=== PATIENT | female | born 1970 | race Caucasian/White ===

== ENCOUNTER 2019-07-28 06:59 | Inpatient (IN) | payer MEDICAID, OTHER ==
[~2019-07-28] VITALS: Ht 167.6 cm; Wt 50.3 kg
[~2019-07-28 06:59] MED LIST: DIPH50 PO; GABA-529 PO; HALO1 PO; PHENY100 PO; SERT50TA12 PO; TRAZ-257 PO
[2019-07-28 07:45] LABS: BASOPHILS % (AUTO) 0.4 % (0.0-2.0); EOSINOPHILS % (AUTO) 0 % (1.0-6.0); HEMATOCRIT 38.5 % (36-46); HEMOGLOBIN 13.2 g/dL (12.0-16.0); LYMPHOCYTES % (AUTO) 6.5 % (22.0-44.0); MEAN CORPUSCULAR HEMOGLOBIN 31.2 pg (26.0-34.0); MEAN CORPUSCULAR HGB CONC 34.2 G/dL (31.0-37.0); MEAN CORPUSCULAR VOLUME 91 fL (80-100); NEUTROPHILS # (AUTO) 12.5 K/uL (1.8-7.7); PLATELET COUNT (AUTO) 279 K/uL (150-450); RED BLOOD CELL COUNT(AUTO) 4.21 MIL/uL (4.00-5.20); RED CELL DISTRIBUTION WIDTH 13.7 % (11.5-14.5)
[2019-07-28 07:49] LABS: NEUTROPHILS % (AUTO) 86.1 % (40.0-70.0)
[2019-07-28 07:58] LABS: ANION GAP 13 mmol/L (8-16); CALCIUM, TOTAL 9.1 mg/dL (8.8-10.5); CARBON DIOXIDE 20 mmol/L (22-29); CHLORIDE 103 mmol/L (98-107); CREATININE 0.77 mg/dL (0.60-1.30); GLOMERULAR FILTR. RATE CALC > 60 mL/min (>60); GLUCOSE,RANDOM 117 mg/dL (70-110); POTASSIUM 3.8 mmol/L (3.5-5.1); SODIUM SERUM 136 mmol/L (136-145); UREA NITROGEN, BLOOD 8 mg/dL (7-18)
[2019-07-28 08:11] LABS: ALANINE AMINOTRANSFERASE 32 U/L (12-78); ALBUMIN 4.2 g/dL (3.4-5.0); ALKALINE PHOSPHATASE 196 U/L (46-116); ASPARTATE AMINOTRANSFERASE 25 U/L (15-37); BILIRUBIN,TOTAL 0.9 mg/dL (0.1-1.0); HCG,QUANTITATIVE 2 mIU/mL (0-6); TOTAL PROTEIN, SERUM 8.1 g/dL (6.4-8.2)
[2019-07-28 08:13] LABS: PHENYTOIN (DILANTIN) < 0.5 mcg/mL (10.0-20.0)
[2019-07-28 08:26] LABS: AMPHET/METH SCREEN,URINE POSITIVE (NEGATIVE); BARBITURATE SCREEN, URINE NEGATIVE (NEGATIVE); BENZODIAZEPINES SCREEN,URINE NEGATIVE (NEGATIVE); CANNABINOID SCREEN,URINE NEGATIVE (NEGATIVE); COCAINE SCREEN,URINE NEGATIVE (NEGATIVE); METHADONE SCREEN, URINE NEGATIVE (NEGATIVE); OPIATE SCREEN,URINE POSITIVE (NEGATIVE)
[2019-07-28 08:34] LABS: PHENCYCLIDINE SCREEN,URINE NEGATIVE (NEGATIVE)
[2019-07-28] MEDS: LORazepam 2 MG TABLET PO PRN (12:05)
[2019-07-28 16:13] VITALS: BP 105/60
[2019-07-28] MEDS ORDERED: NICOTINE 14 MG/24 HOUR PATCH TD PRN (17:00)
[2019-07-28] MEDS ORDERED: IBUPROFEN 400 MG TABLET PO PRN (17:00)
[2019-07-28] MEDS ORDERED: DOCUSATE SODIUM 100 MG CAPSULE PO PRN (17:00)
[2019-07-28] MEDS ORDERED: LOPERAMIDE HCL 2 MG CAPSULE PO PRN (17:00)
[2019-07-28] MEDS ORDERED: MAG HYDROX/AL HYDROX/SIMETH ES 30 ML SUSPENSION UDCUP PO PRN (17:00)
[2019-07-28] MEDS ORDERED: PETROLATUM,WHITE 28 GM JELLY TP PRN (17:00)
[2019-07-28] MEDS ORDERED: CloNIDine HCL 0.1 MG TABLET PO PRN (17:00)
[2019-07-28] MEDS ORDERED: MAGNESIUM HYDROXIDE SUSPENSION 30 ML UDCUP PO PRN (17:00)
[2019-07-28] MEDS ORDERED: ACETAMINOPHEN 325 MG TABLET PO PRN (17:00)
[2019-07-28] MEDS ORDERED: ALBUTEROL SULFATE HFA 90 MCG/PUFF 8 GM INHALER IH PRN (17:00)
[2019-07-28] MEDS ORDERED: ONDANSETRON HCL 4 MG TABLET PO PRN (17:00)
[2019-07-29 06:23] VITALS: BP 112/69
[2019-07-29] MEDS: LORazepam 2 MG TABLET PO PRN (07:09)
[2019-07-29 08:46] VITALS: BP 104/64
[2019-07-29] MEDS: PHENYTOIN SODIUM 100 MG ER CAPSULE PO SCH (08:50)
[2019-07-29] MEDS: NICOTINE 21 MG/24 HOUR PATCH TD SCH (08:51)
[2019-07-29] MEDS: HALOPERIDOL 5 MG TABLET PO PRN (13:08)
[2019-07-29 16:00] VITALS: BP 95/70
[2019-07-29] MEDS: NYSTATIN 500,000 UNITS/5 ML SUSPENSION UDCUP PO SCH (17:15)
[2019-07-29] MEDS: QUEtiapine FUMARATE 200 MG TABLET PO SCH (20:23)
[2019-07-30] MEDS: PHENYTOIN SODIUM 100 MG ER CAPSULE PO SCH (08:45)
[2019-07-30] MEDS: NYSTATIN 500,000 UNITS/5 ML SUSPENSION UDCUP PO SCH ×3 (08:46→17:24)
[2019-07-30] MEDS: QUEtiapine FUMARATE 200 MG TABLET PO SCH ×2 (08:46→20:56)
[2019-07-30] MEDS: NICOTINE 21 MG/24 HOUR PATCH TD SCH (08:51)
[2019-07-30] MEDS: LORazepam 2 MG TABLET PO PRN ×2 (12:39→17:51)
[2019-07-30 16:00] VITALS: BP 85/62
[2019-07-30 20:07] VITALS: BP 94/62
[2019-07-31] MEDS: PHENYTOIN SODIUM 100 MG ER CAPSULE PO SCH (08:22)
[2019-07-31] MEDS: QUEtiapine FUMARATE 200 MG TABLET PO SCH ×2 (08:22→20:12)
[2019-07-31] MEDS: NYSTATIN 500,000 UNITS/5 ML SUSPENSION UDCUP PO SCH ×3 (08:27→17:00)
[2019-07-31] MEDS: NICOTINE 21 MG/24 HOUR PATCH TD SCH (08:28)
[2019-07-31 08:31] VITALS: BP 94/55
[2019-07-31] MEDS: VENLAFAXINE HCL 150 MG ER CAPSULE PO SCH (10:23)
[2019-07-31] MEDS: HALOPERIDOL 5 MG TABLET PO PRN (12:49)
[2019-07-31] MEDS: GuaiFENesin/D-METHORPHAN [SUGAR-FREE] 200-20MG/10 ML SYRUP UDCUP PO PRN (18:17)
[2019-07-31] MEDS: LITHIUM CARBONATE 300 MG CAPSULE PO SCH (20:12)
[2019-07-31 20:31] VITALS: BP 95/65
[2019-08-01] MEDS: ZOLPIDEM TARTRATE 10 MG TABLET PO PRN (03:33)
[2019-08-01 06:26] VITALS: BP 100/64
[2019-08-01] MEDS: VENLAFAXINE HCL 150 MG ER CAPSULE PO SCH (08:42)
[2019-08-01] MEDS: NICOTINE 21 MG/24 HOUR PATCH TD SCH (08:42)
[2019-08-01] MEDS: QUEtiapine FUMARATE 200 MG TABLET PO SCH ×2 (08:42→20:28)
[2019-08-01] MEDS: NYSTATIN 500,000 UNITS/5 ML SUSPENSION UDCUP PO SCH ×3 (08:48→16:59)
[2019-08-01] MEDS: PHENYTOIN SODIUM 100 MG ER CAPSULE PO SCH (08:48)
[2019-08-01 09:51] LABS: CHOL/HDL RATIO 4.3 (3.9-5.7)
[2019-08-01] MEDS: HALOPERIDOL 5 MG TABLET PO PRN (13:59)
[2019-08-01 16:32] VITALS: BP 90/67
[2019-08-01] MEDS: LITHIUM CARBONATE 300 MG CAPSULE PO SCH (20:29)
[2019-08-02 02:51] VITALS: BP 109/65
[2019-08-02] MEDS: LORazepam 2 MG TABLET PO PRN (02:57)
[2019-08-02] MEDS: NICOTINE 21 MG/24 HOUR PATCH TD SCH (09:11)
[2019-08-02] MEDS: PHENYTOIN SODIUM 100 MG ER CAPSULE PO SCH (09:11)
[2019-08-02] MEDS: VENLAFAXINE HCL 150 MG ER CAPSULE PO SCH (09:11)
[2019-08-02] MEDS: QUEtiapine FUMARATE 200 MG TABLET PO SCH ×2 (09:11→20:30)
[2019-08-02] MEDS: NYSTATIN 500,000 UNITS/5 ML SUSPENSION UDCUP PO SCH ×3 (09:14→17:15)
[2019-08-02 10:45] VITALS: BP 89/69
[2019-08-02] MEDS: HALOPERIDOL 5 MG TABLET PO PRN (13:45)
[2019-08-02 16:16] VITALS: BP 100/63
[2019-08-02] MEDS: LITHIUM CARBONATE 300 MG CAPSULE PO SCH (20:30)
[2019-08-03] MEDS: ZOLPIDEM TARTRATE 10 MG TABLET PO PRN (01:13)
[2019-08-03] MEDS: LORazepam 2 MG TABLET PO PRN ×3 (06:06→18:05)
[2019-08-03 07:11] VITALS: BP 95/58
[2019-08-03 07:27] LABS: BASOPHILS % (AUTO) 1.3 % (0.0-2.0); EOSINOPHILS % (AUTO) 4.1 % (1.0-6.0); HEMATOCRIT 42.3 % (36-46); HEMOGLOBIN 14.2 g/dL (12.0-16.0); LYMPHOCYTES # (AUTO) 1.4 K/uL (1.0-4.8); LYMPHOCYTES % (AUTO) 25.3 % (22.0-44.0); MEAN CORPUSCULAR HEMOGLOBIN 31.2 pg (26.0-34.0); MEAN CORPUSCULAR HGB CONC 33.5 G/dL (31.0-37.0); MEAN CORPUSCULAR VOLUME 93 fL (80-100); MONOCYTES # (AUTO) 0.5 K/uL (0.1-1.0); NEUTROPHILS # (AUTO) 3.2 K/uL (1.8-7.7); NEUTROPHILS % (AUTO) 59.3 % (40.0-70.0); PLATELET COUNT (AUTO) 179 K/uL (150-450); RED BLOOD CELL COUNT(AUTO) 4.54 MIL/uL (4.00-5.20); RED CELL DISTRIBUTION WIDTH 12.9 % (11.5-14.5)
[2019-08-03] MEDS: VENLAFAXINE HCL 150 MG ER CAPSULE PO SCH (08:41)
[2019-08-03] MEDS: NICOTINE 21 MG/24 HOUR PATCH TD SCH (08:41)
[2019-08-03] MEDS: QUEtiapine FUMARATE 200 MG TABLET PO SCH ×2 (08:41→20:39)
[2019-08-03] MEDS: NYSTATIN 500,000 UNITS/5 ML SUSPENSION UDCUP PO SCH ×3 (08:42→16:26)
[2019-08-03] MEDS: PHENYTOIN SODIUM 100 MG ER CAPSULE PO SCH (08:42)
[2019-08-03 16:10] VITALS: BP 106/76
[2019-08-03] MEDS: LITHIUM CARBONATE 300 MG CAPSULE PO SCH (20:39)
[2019-08-04 00:45] VITALS: BP 105/72
[2019-08-04] MEDS: LORazepam 2 MG TABLET PO PRN ×2 (03:07→16:44)
[2019-08-04 08:26] VITALS: BP 97/69
[2019-08-04] MEDS: FOLIC ACID 1 MG TABLET PO SCH (08:39)
[2019-08-04] MEDS: MULTIVITAMINS WITH MINERALS, THERAPEUTIC TABLET PO SCH (08:39)
[2019-08-04] MEDS: THIAMINE HCL 100 MG TABLET PO SCH (08:39)
[2019-08-04] MEDS: QUEtiapine FUMARATE 200 MG TABLET PO SCH ×2 (08:39→20:53)
[2019-08-04] MEDS: VENLAFAXINE HCL 150 MG ER CAPSULE PO SCH (08:39)
[2019-08-04] MEDS: PHENYTOIN SODIUM 100 MG ER CAPSULE PO SCH (08:39)
[2019-08-04] MEDS: HALOPERIDOL 5 MG TABLET PO PRN (08:40)
[2019-08-04] MEDS: NICOTINE 21 MG/24 HOUR PATCH TD SCH (08:44)
[2019-08-04] MEDS: NYSTATIN 500,000 UNITS/5 ML SUSPENSION UDCUP PO SCH ×3 (09:00→17:22)
[2019-08-04 16:47] VITALS: BP 104/65
[2019-08-04] MEDS: GuaiFENesin/D-METHORPHAN [SUGAR-FREE] 200-20MG/10 ML SYRUP UDCUP PO PRN (18:15)
[2019-08-04] MEDS: LITHIUM CARBONATE 300 MG CAPSULE PO SCH (20:53)
[2019-08-05 00:35] VITALS: BP 107/62
[2019-08-05] MEDS: ZOLPIDEM TARTRATE 10 MG TABLET PO PRN (03:06)
[2019-08-05] MEDS: FOLIC ACID 1 MG TABLET PO SCH (08:39)
[2019-08-05] MEDS: MULTIVITAMINS WITH MINERALS, THERAPEUTIC TABLET PO SCH (08:39)
[2019-08-05] MEDS: THIAMINE HCL 100 MG TABLET PO SCH (08:39)
[2019-08-05] MEDS: NYSTATIN 500,000 UNITS/5 ML SUSPENSION UDCUP PO SCH ×3 (08:39→17:00)
[2019-08-05] MEDS: PHENYTOIN SODIUM 100 MG ER CAPSULE PO SCH (08:39)
[2019-08-05] MEDS: VENLAFAXINE HCL 150 MG ER CAPSULE PO SCH (08:39)
[2019-08-05] MEDS: QUEtiapine FUMARATE 200 MG TABLET PO SCH ×2 (08:39→20:48)
[2019-08-05] MEDS: NICOTINE 21 MG/24 HOUR PATCH TD SCH (08:40)
[2019-08-05 09:14] VITALS: BP 97/68
[2019-08-05 16:23] VITALS: BP 100/70
[2019-08-05] MEDS: LORazepam 2 MG TABLET PO PRN (17:00)
[2019-08-05] MEDS: LITHIUM CARBONATE 300 MG CAPSULE PO SCH (20:48)
[2019-08-05] MEDS: ValACYclovir HCL 500 MG TABLET PO SCH (23:29)
[2019-08-06 00:36] VITALS: BP 127/89
[2019-08-06] MEDS: LORazepam 2 MG TABLET PO PRN (05:06)
[2019-08-06 08:34] VITALS: BP 93/60
[2019-08-06] MEDS: NYSTATIN 500,000 UNITS/5 ML SUSPENSION UDCUP PO SCH ×2 (08:53→12:25)
[2019-08-06] MEDS: VENLAFAXINE HCL 150 MG ER CAPSULE PO SCH (08:54)
[2019-08-06] MEDS: QUEtiapine FUMARATE 200 MG TABLET PO SCH (08:54)
[2019-08-06] MEDS: THIAMINE HCL 100 MG TABLET PO SCH (08:54)
[2019-08-06] MEDS: FOLIC ACID 1 MG TABLET PO SCH (08:54)
[2019-08-06] MEDS: PHENYTOIN SODIUM 100 MG ER CAPSULE PO SCH (08:54)
[2019-08-06] MEDS: ValACYclovir HCL 500 MG TABLET PO SCH (08:54)
[2019-08-06] MEDS: NICOTINE 21 MG/24 HOUR PATCH TD SCH (08:54)
[2019-08-06] MEDS: MULTIVITAMINS WITH MINERALS, THERAPEUTIC TABLET PO SCH (08:54)
[2019-08-06] MEDS ORDERED: QUET200T PO (09:46)
[2019-08-06] MEDS ORDERED: VALA500T42 PO (09:46)
[2019-08-06] MEDS ORDERED: NYST100026 PO (09:46)
[2019-08-06] MEDS ORDERED: LITH300C3 PO ×2 (09:46→10:47)
[2019-08-06] MEDS ORDERED: VENL-68 PO (09:46)
[2019-08-06] MEDS ORDERED: QUET200T29 PO (10:47)
[2019-08-06] MEDS ORDERED: VENL150C2 PO (10:47)
== END 2019-08-06 12:50 | disposition home or self-care (01) | DRG 750 ==
LOC: EMS 07:00 → B2S 13:58
DX: F25.1 Schizoaffective disorder, depressive type (principal); G40.909 Epilepsy, unspecified, not intractable, without status epilepticus; R45.851 Suicidal ideations; F15.10 Other stimulant abuse, uncomplicated; J44.9 Chronic obstructive pulmonary disease, unspecified; D72.829 Elevated white blood cell count, unspecified; F10.10 Alcohol abuse, uncomplicated; F11.10 Opioid abuse, uncomplicated; F17.210 Nicotine dependence, cigarettes, uncomplicated; F41.9 Anxiety disorder, unspecified; G44.209 Tension-type headache, unspecified, not intractable; Z59.0 Homelessness; Z79.899 Other long term (current) drug therapy; Z81.8 Family history of other mental and behavioral disorders
CPT/HCPCS: 83036; 87081; J3535

== ENCOUNTER 2021-07-04 02:44 | Emergency (ER) | payer MEDICAID, OTHER ==
[~2021-07-04] VITALS: Ht 167.6 cm; Wt 68.2 kg
[~2021-07-04 02:44] MED LIST changes: -DIPH50 PO; -GABA-529 PO; -HALO1 PO; +LITH300C3 PO; +NYST100033 PO; +QUET200T PO; +QUET200T30 PO; -SERT50TA12 PO; -TRAZ-257 PO; +VALA500T42 PO; +VENL-68 PO; +VENL150C2 PO
[2021-07-04 04:34] LABS: COVID AG,FIA SOURCE NASOPHARYNGEAL
[2021-07-04 04:45] LABS: BASOPHILS % (AUTO) 0.2 % (0.0-2.0); EOSINOPHILS % (AUTO) 0.2 % (1.0-6.0); HEMATOCRIT 43.6 % (36-46); LYMPHOCYTES # (AUTO) 1.1 K/uL (1.0-4.8); LYMPHOCYTES % (AUTO) 12.2 % (22.0-44.0); MEAN CORPUSCULAR HEMOGLOBIN 31.9 pg (26.0-34.0); MEAN CORPUSCULAR HGB CONC 34.4 G/dL (31.0-37.0); MEAN CORPUSCULAR VOLUME 93 fL (80-100); MONOCYTES # (AUTO) 0.7 K/uL (0.1-1.0); MONOCYTES % (AUTO) 7.3 % (2.0-9.0); NEUTROPHILS # (AUTO) 7.3 K/uL (1.8-7.7); NEUTROPHILS % (AUTO) 80.1 % (40.0-70.0); PLATELET COUNT (AUTO) 155 K/uL (150-450); RED CELL DISTRIBUTION WIDTH 14.6 % (11.5-14.5)
[2021-07-04 04:50] LABS: ANION GAP 14 mmol/L (8-16); CARBON DIOXIDE 23 mmol/L (22-29); CHLORIDE 100 mmol/L (98-107); CREATININE 0.75 mg/dL (0.60-1.30); GLOMERULAR FILTR. RATE CALC > 60 mL/min (>60); GLUCOSE,RANDOM 97 mg/dL (70-110); POTASSIUM 3.5 mmol/L (3.5-5.1); SODIUM SERUM 137 mmol/L (136-145); UREA NITROGEN, BLOOD 7 mg/dL (7-18)
[2021-07-04 05:04] LABS: ALANINE AMINOTRANSFERASE 40 U/L (12-78); ALBUMIN 4.5 g/dL (3.4-5.0); ALKALINE PHOSPHATASE 113 U/L (46-116); ASPARTATE AMINOTRANSFERASE 38 U/L (15-37); BILIRUBIN,TOTAL 0.7 mg/dL (0.1-1.0); HCG,QUANTITATIVE 4 mIU/mL (0-6); PHENYTOIN (DILANTIN) 0.6 mcg/mL (10.0-20.0); TOTAL PROTEIN, SERUM 8.6 g/dL (6.4-8.2)
[2021-07-04 05:06] LABS: LITHIUM < 0.20 mmol/L (0.60-1.20)
[2021-07-04] MEDS ORDERED: LORazepam 1 MG TABLET PO ONE (05:30)
[2021-07-04 06:07] VITALS: BP 119/78
== END 2021-07-04 06:30 | disposition home or self-care (01) ==
LOC: EMS 02:44
DX: F41.9 Anxiety disorder, unspecified (principal); F31.9 Bipolar disorder, unspecified; F17.210 Nicotine dependence, cigarettes, uncomplicated; Z88.2 Allergy status to sulfonamides; Z79.899 Other long term (current) drug therapy; Z20.822 Contact with and (suspected) exposure to COVID-19
CPT/HCPCS: 36415; 80053; 80178; 80185; 84702; 85025; 87426; 99283; G0480

== ENCOUNTER 2021-07-04 08:12 | Inpatient (IN) | payer MEDICAID, OTHER ==
[~2021-07-04] VITALS: Ht 167.6 cm; Wt 56.9 kg
[2021-07-04] MEDS ORDERED: HALOPERIDOL 5 MG TABLET PO PRN (13:45)
[2021-07-04] MEDS ORDERED: PROMETHAZINE HCL 25 MG TABLET PO PRN (13:45)
[2021-07-04 13:49] LABS: COVID AG,FIA SOURCE NASOPHARYNGEAL
[2021-07-04 18:56] LABS: BASOPHILS % (AUTO) 0.6 % (0.0-2.0); EOSINOPHILS % (AUTO) 1.2 % (1.0-6.0); HEMOGLOBIN 14.3 g/dL (12.0-16.0); LYMPHOCYTES # (AUTO) 1.8 K/uL (1.0-4.8); LYMPHOCYTES % (AUTO) 19.8 % (22.0-44.0); MEAN CORPUSCULAR HEMOGLOBIN 31.8 pg (26.0-34.0); MEAN CORPUSCULAR HGB CONC 34.8 G/dL (31.0-37.0); MEAN CORPUSCULAR VOLUME 91 fL (80-100); MONOCYTES # (AUTO) 0.8 K/uL (0.1-1.0); MONOCYTES % (AUTO) 8.5 % (2.0-9.0); NEUTROPHILS # (AUTO) 6.5 K/uL (1.8-7.7); NEUTROPHILS % (AUTO) 69.9 % (40.0-70.0); PLATELET COUNT (AUTO) 154 K/uL (150-450); RED BLOOD CELL COUNT(AUTO) 4.48 MIL/uL (4.00-5.20); RED CELL DISTRIBUTION WIDTH 14.3 % (11.5-14.5)
[2021-07-04 19:00] VITALS: BP 116/77
[2021-07-04 19:15] LABS: ANION GAP 13 mmol/L (8-16); CALCIUM, TOTAL 9.5 mg/dL (8.8-10.5); CARBON DIOXIDE 24 mmol/L (22-29); CHLORIDE 102 mmol/L (98-107); CREATININE 0.72 mg/dL (0.60-1.30); GLOMERULAR FILTR. RATE CALC > 60 mL/min (>60); GLUCOSE,RANDOM 87 mg/dL (70-110); POTASSIUM 3.4 mmol/L (3.5-5.1); SODIUM SERUM 139 mmol/L (136-145); UREA NITROGEN, BLOOD 9 mg/dL (7-18)
[2021-07-04] MEDS ORDERED: POTASSIUM CHLORIDE 20 MEQ ER TABLET PO ONE (20:15)
[2021-07-05 08:01] LABS: CHOL/HDL RATIO 2.3 (3.9-5.7); FREE T4 (FREE THYROXINE) 1.28 ng/dL (0.76-1.46); THYROID STIMULATING HORMONE 0.54 uIU/mL (0.36-3.74)
[2021-07-05] MEDS: LORazepam 2 MG TABLET PO PRN (08:45)
[2021-07-05] MEDS: NICOTINE 21 MG/24 HOUR PATCH TD SCH (08:50)
[2021-07-05 13:09] VITALS: BP 95/56
[2021-07-05] MEDS: VENLAFAXINE HCL 150 MG ER CAPSULE PO SCH (17:08)
[2021-07-05] MEDS: NYSTATIN 500,000 UNITS/5 ML SUSPENSION UDCUP PO SCH (17:08)
[2021-07-05 17:11] VITALS: BP 99/61
[2021-07-05] MEDS: LITHIUM CARBONATE 300 MG CAPSULE PO SCH (20:51)
[2021-07-05] MEDS: QUEtiapine FUMARATE 200 MG TABLET PO SCH (20:51)
[2021-07-06 08:30] VITALS: BP 97/61
[2021-07-06] MEDS: NYSTATIN 500,000 UNITS/5 ML SUSPENSION UDCUP PO SCH (09:31)
[2021-07-06] MEDS: PHENYTOIN SODIUM 100 MG ER CAPSULE PO SCH (09:31)
[2021-07-06] MEDS: QUEtiapine FUMARATE 200 MG TABLET PO SCH ×2 (09:31→21:07)
[2021-07-06] MEDS: NICOTINE 21 MG/24 HOUR PATCH TD SCH (09:32)
[2021-07-06] MEDS: VENLAFAXINE HCL 150 MG ER CAPSULE PO SCH (09:32)
[2021-07-06] MEDS: ValACYclovir HCL 500 MG TABLET PO SCH (09:32)
[2021-07-06 16:45] VITALS: BP 99/89
[2021-07-06] MEDS: LITHIUM CARBONATE 300 MG CAPSULE PO SCH (21:07)
[2021-07-07 08:00] VITALS: BP 103/70
[2021-07-07] MEDS: PHENYTOIN SODIUM 100 MG ER CAPSULE PO SCH (08:56)
[2021-07-07] MEDS: VENLAFAXINE HCL 150 MG ER CAPSULE PO SCH (08:57)
[2021-07-07] MEDS: ValACYclovir HCL 500 MG TABLET PO SCH (08:57)
[2021-07-07] MEDS: QUEtiapine FUMARATE 200 MG TABLET PO SCH ×2 (08:57→20:38)
[2021-07-07] MEDS: NICOTINE 21 MG/24 HOUR PATCH TD SCH (09:06)
[2021-07-07] MEDS: NYSTATIN 500,000 UNITS/5 ML SUSPENSION UDCUP PO SCH (09:08)
[2021-07-07 16:19] VITALS: BP 109/69
[2021-07-07] MEDS: LITHIUM CARBONATE 300 MG CAPSULE PO SCH (20:37)
[2021-07-08] MEDS: VENLAFAXINE HCL 150 MG ER CAPSULE PO SCH (09:00)
[2021-07-08] MEDS: ValACYclovir HCL 500 MG TABLET PO SCH (09:00)
[2021-07-08] MEDS: NYSTATIN 500,000 UNITS/5 ML SUSPENSION UDCUP PO SCH (09:00)
[2021-07-08] MEDS: PHENYTOIN SODIUM 100 MG ER CAPSULE PO SCH (09:01)
[2021-07-08] MEDS: NICOTINE 21 MG/24 HOUR PATCH TD SCH (09:01)
[2021-07-08] MEDS: QUEtiapine FUMARATE 200 MG TABLET PO SCH ×2 (09:01→20:22)
[2021-07-08 10:17] VITALS: BP 114/73
[2021-07-08 16:00] VITALS: BP 108/68
[2021-07-08] MEDS: LITHIUM CARBONATE 300 MG CAPSULE PO SCH (20:22)
[2021-07-09] MEDS: NICOTINE 21 MG/24 HOUR PATCH TD SCH (09:00)
[2021-07-09] MEDS: NYSTATIN 500,000 UNITS/5 ML SUSPENSION UDCUP PO SCH (09:00)
[2021-07-09] MEDS: QUEtiapine FUMARATE 200 MG TABLET PO SCH ×2 (09:01→20:18)
[2021-07-09] MEDS: PHENYTOIN SODIUM 100 MG ER CAPSULE PO SCH (09:01)
[2021-07-09] MEDS: VENLAFAXINE HCL 150 MG ER CAPSULE PO SCH (09:01)
[2021-07-09] MEDS: ValACYclovir HCL 500 MG TABLET PO SCH (09:01)
[2021-07-09 09:43] VITALS: BP 96/68
[2021-07-09 16:00] VITALS: BP 110/57
[2021-07-09] MEDS: LORazepam 2 MG TABLET PO PRN (16:45)
[2021-07-09] MEDS: LITHIUM CARBONATE 300 MG CAPSULE PO SCH (20:18)
[2021-07-10 09:30] VITALS: BP 103/68
[2021-07-10] MEDS: NYSTATIN 500,000 UNITS/5 ML SUSPENSION UDCUP PO SCH (09:33)
[2021-07-10] MEDS: ValACYclovir HCL 500 MG TABLET PO SCH (09:33)
[2021-07-10] MEDS: QUEtiapine FUMARATE 200 MG TABLET PO SCH ×2 (09:34→20:21)
[2021-07-10] MEDS: PHENYTOIN SODIUM 100 MG ER CAPSULE PO SCH (09:34)
[2021-07-10] MEDS: VENLAFAXINE HCL 150 MG ER CAPSULE PO SCH (09:34)
[2021-07-10] MEDS: NICOTINE 21 MG/24 HOUR PATCH TD SCH (09:40)
[2021-07-10] MEDS: OLANZapine 10 MG TABLET PO SCH (12:12)
[2021-07-10 16:00] VITALS: BP 100/66
[2021-07-10] MEDS: LITHIUM CARBONATE 300 MG CAPSULE PO SCH (20:21)
[2021-07-10 21:03] LABS: COVID AG,FIA SOURCE NASAL SWAB
[2021-07-11 08:53] VITALS: BP 102/64
[2021-07-11] MEDS: ValACYclovir HCL 500 MG TABLET PO SCH (09:26)
[2021-07-11] MEDS: PHENYTOIN SODIUM 100 MG ER CAPSULE PO SCH (09:27)
[2021-07-11] MEDS: OLANZapine 10 MG TABLET PO SCH (09:27)
[2021-07-11] MEDS: NYSTATIN 500,000 UNITS/5 ML SUSPENSION UDCUP PO SCH (09:27)
[2021-07-11] MEDS: VENLAFAXINE HCL 150 MG ER CAPSULE PO SCH (09:27)
[2021-07-11] MEDS: NICOTINE 21 MG/24 HOUR PATCH TD SCH (09:28)
[2021-07-11 16:11] VITALS: BP 106/66
[2021-07-11] MEDS: QUEtiapine FUMARATE 200 MG TABLET PO SCH (21:08)
[2021-07-11] MEDS: LITHIUM CARBONATE 300 MG CAPSULE PO SCH (21:08)
[2021-07-12] MEDS: VENLAFAXINE HCL 150 MG ER CAPSULE PO SCH (08:59)
[2021-07-12] MEDS: ValACYclovir HCL 500 MG TABLET PO SCH (08:59)
[2021-07-12] MEDS: NYSTATIN 500,000 UNITS/5 ML SUSPENSION UDCUP PO SCH (08:59)
[2021-07-12] MEDS: PHENYTOIN SODIUM 100 MG ER CAPSULE PO SCH (08:59)
[2021-07-12] MEDS: OLANZapine 10 MG TABLET PO SCH (08:59)
[2021-07-12 09:00] VITALS: BP 102/68
[2021-07-12] MEDS: NICOTINE 21 MG/24 HOUR PATCH TD SCH (09:00)
[2021-07-12 16:00] VITALS: BP 101/64
[2021-07-12] MEDS: LORazepam 2 MG TABLET PO PRN (16:13)
[2021-07-12] MEDS: QUEtiapine FUMARATE 200 MG TABLET PO SCH (21:20)
[2021-07-12] MEDS: LITHIUM CARBONATE 300 MG CAPSULE PO SCH (21:20)
[2021-07-12 23:47] LABS: COVID AG,FIA SOURCE NASAL SWAB
[2021-07-13 08:00] VITALS: BP 100/61
[2021-07-13] MEDS: VENLAFAXINE HCL 150 MG ER CAPSULE PO SCH (08:37)
[2021-07-13] MEDS: NICOTINE 21 MG/24 HOUR PATCH TD SCH (08:37)
[2021-07-13] MEDS: PHENYTOIN SODIUM 100 MG ER CAPSULE PO SCH (08:37)
[2021-07-13] MEDS: OLANZapine 10 MG TABLET PO SCH (08:37)
[2021-07-13] MEDS: ValACYclovir HCL 500 MG TABLET PO SCH (08:38)
[2021-07-13] MEDS ORDERED: GuaiFENesin/D-METHORPHAN [SUGAR-FREE] 200-20MG/10 ML SYRUP UDCUP PO PRN (11:15)
[2021-07-13] MEDS ORDERED: MAG HYDROX/AL HYDROX/SIMETH ES 30 ML SUSPENSION UDCUP PO PRN (11:15)
[2021-07-13] MEDS ORDERED: ONDANSETRON HCL 4 MG TABLET PO PRN (11:15)
[2021-07-13] MEDS ORDERED: LOPERAMIDE HCL 2 MG CAPSULE PO PRN (11:15)
[2021-07-13] MEDS ORDERED: MAGNESIUM HYDROXIDE SUSPENSION 30 ML UDCUP PO PRN (11:15)
[2021-07-13] MEDS ORDERED: CloNIDine HCL 0.1 MG TABLET PO PRN (11:15)
[2021-07-13] MEDS ORDERED: ALBUTEROL SULFATE HFA 90 MCG/PUFF 8 GM INHALER IH PRN (11:15)
[2021-07-13] MEDS ORDERED: NICOTINE 14 MG/24 HOUR PATCH TD PRN (11:15)
[2021-07-13] MEDS ORDERED: DOCUSATE SODIUM 100 MG CAPSULE PO PRN (11:15)
[2021-07-13] MEDS ORDERED: ACETAMINOPHEN 325 MG TABLET PO PRN (11:15)
[2021-07-13] MEDS ORDERED: PETROLATUM,WHITE 28 GM JELLY TP PRN (11:15)
[2021-07-13] MEDS ORDERED: IBUPROFEN 400 MG TABLET PO PRN (11:15)
[2021-07-13] MEDS: LORazepam 2 MG TABLET PO PRN (15:11)
[2021-07-13] MEDS: QUEtiapine FUMARATE 200 MG TABLET PO SCH (20:39)
[2021-07-13] MEDS: LITHIUM CARBONATE 300 MG CAPSULE PO SCH (20:39)
[2021-07-14 08:00] VITALS: BP 101/61
[2021-07-14] MEDS: PHENYTOIN SODIUM 100 MG ER CAPSULE PO SCH (08:08)
[2021-07-14] MEDS: OLANZapine 10 MG TABLET PO SCH (08:08)
[2021-07-14] MEDS: VENLAFAXINE HCL 150 MG ER CAPSULE PO SCH (08:09)
[2021-07-14] MEDS: ValACYclovir HCL 500 MG TABLET PO SCH (08:09)
[2021-07-14] MEDS: NICOTINE 21 MG/24 HOUR PATCH TD SCH (08:11)
[2021-07-14] MEDS: LORazepam 2 MG TABLET PO PRN (13:25)
[2021-07-14 17:06] VITALS: BP 112/76
[2021-07-14] MEDS: LITHIUM CARBONATE 300 MG CAPSULE PO SCH (20:38)
[2021-07-14] MEDS: QUEtiapine FUMARATE 200 MG TABLET PO SCH (20:38)
[2021-07-15] MEDS: ValACYclovir HCL 500 MG TABLET PO SCH (09:02)
[2021-07-15] MEDS: OLANZapine 10 MG TABLET PO SCH (09:02)
[2021-07-15] MEDS: PHENYTOIN SODIUM 100 MG ER CAPSULE PO SCH (09:02)
[2021-07-15] MEDS: VENLAFAXINE HCL 150 MG ER CAPSULE PO SCH (09:02)
[2021-07-15] MEDS: NICOTINE 21 MG/24 HOUR PATCH TD SCH (09:03)
[2021-07-15 10:23] VITALS: BP 132/76
[2021-07-15 17:08] VITALS: BP 108/75
[2021-07-15] MEDS: LORazepam 2 MG TABLET PO PRN (17:10)
[2021-07-15] MEDS: QUEtiapine FUMARATE 200 MG TABLET PO SCH (20:38)
[2021-07-15] MEDS: LITHIUM CARBONATE 300 MG CAPSULE PO SCH (20:39)
[2021-07-16] MEDS: OLANZapine 10 MG TABLET PO SCH (08:11)
[2021-07-16] MEDS: PHENYTOIN SODIUM 100 MG ER CAPSULE PO SCH (08:11)
[2021-07-16] MEDS: ValACYclovir HCL 500 MG TABLET PO SCH (08:11)
[2021-07-16] MEDS: NICOTINE 21 MG/24 HOUR PATCH TD SCH (08:12)
[2021-07-16] MEDS: VENLAFAXINE HCL 150 MG ER CAPSULE PO SCH (08:12)
[2021-07-16] MEDS ORDERED: LITH300C3 PO (09:35)
[2021-07-16] MEDS ORDERED: QUET200T30 PO (09:35)
[2021-07-16] MEDS ORDERED: VENL150C2 PO (09:35)
[2021-07-16 09:41] VITALS: BP 98/60
[2021-07-16] MEDS ORDERED: OLAN10TA74 PO (10:19)
[2021-07-16] MEDS ORDERED: QUET200T PO (10:19)
== END 2021-07-16 13:31 | disposition home or self-care (01) | DRG 750 ==
LOC: EMS 08:16 → 3EI 18:44
PROVIDERS: ADMIT Psychiatry & Neurology Child & Adolescent Psychiatry; ATTEND Psychiatry & Neurology Child & Adolescent Psychiatry
DX: F25.1 Schizoaffective disorder, depressive type (principal); G40.909 Epilepsy, unspecified, not intractable, without status epilepticus; K74.60 Unspecified cirrhosis of liver; R45.851 Suicidal ideations; F10.10 Alcohol abuse, uncomplicated; Z20.822 Contact with and (suspected) exposure to COVID-19; F31.9 Bipolar disorder, unspecified; F41.9 Anxiety disorder, unspecified; G44.209 Tension-type headache, unspecified, not intractable; J44.9 Chronic obstructive pulmonary disease, unspecified; F15.10 Other stimulant abuse, uncomplicated; K31.84 Gastroparesis; F17.210 Nicotine dependence, cigarettes, uncomplicated; Z91.19 Patient's noncompliance with other medical treatment and regimen; Z88.2 Allergy status to sulfonamides; Z59.00 Homelessness unspecified
CPT/HCPCS: 80048; 80061; 84132; 84439; 84443; 85025; 99285

== ENCOUNTER 2021-07-21 20:59 | Inpatient (IN) | payer MEDICAID, OTHER ==
[~2021-07-21] VITALS: Ht 165.1 cm; Wt 59.1 kg
[~2021-07-21 20:59] MED LIST changes: -NYST100033 PO; +OLAN10TA74 PO; -QUET200T30 PO; -VENL-68 PO
[2021-07-21] MEDS ORDERED: HALOPERIDOL LACTATE 5 MG/ML VIAL IM ONE (22:30)
[2021-07-21] MEDS ORDERED: DiphenhydrAMINE HCL 50 MG/ML VIAL IM ONE (22:30)
[2021-07-21] MEDS ORDERED: LORazepam 2 MG/ML VIAL IM ONE (22:30)
[2021-07-21 23:20] LABS: BASOPHILS % (AUTO) 0.3 % (0.0-2.0); EOSINOPHILS % (AUTO) 0.2 % (1.0-6.0); HEMATOCRIT 36.8 % (36-46); HEMOGLOBIN 12.8 g/dL (12.0-16.0); LYMPHOCYTES # (AUTO) 1.3 K/uL (1.0-4.8); LYMPHOCYTES % (AUTO) 13.4 % (22.0-44.0); MEAN CORPUSCULAR HGB CONC 34.8 G/dL (31.0-37.0); MEAN CORPUSCULAR VOLUME 92 fL (80-100); MONOCYTES # (AUTO) 0.5 K/uL (0.1-1.0); MONOCYTES % (AUTO) 5.4 % (2.0-9.0); NEUTROPHILS % (AUTO) 80.7 % (40.0-70.0); PLATELET COUNT (AUTO) 231 K/uL (150-450); RED CELL DISTRIBUTION WIDTH 13.7 % (11.5-14.5)
[2021-07-21 23:23] LABS: COVID AG,FIA SOURCE NASOPHARYNGEAL
[2021-07-21 23:31] LABS: ANION GAP 14 mmol/L (8-16); CALCIUM, TOTAL 9.2 mg/dL (8.8-10.5); CARBON DIOXIDE 24 mmol/L (22-29); CHLORIDE 99 mmol/L (98-107); CREATININE 0.82 mg/dL (0.60-1.30); GLOMERULAR FILTR. RATE CALC > 60 mL/min (>60); GLUCOSE,RANDOM 171 mg/dL (70-110); POTASSIUM 3.1 mmol/L (3.5-5.1); SODIUM SERUM 137 mmol/L (136-145); UREA NITROGEN, BLOOD 6 mg/dL (7-18)
[2021-07-21 23:37] LABS: ALANINE AMINOTRANSFERASE 30 U/L (12-78); ALBUMIN 3.7 g/dL (3.4-5.0); ALKALINE PHOSPHATASE 121 U/L (46-116); ASPARTATE AMINOTRANSFERASE 26 U/L (15-37); BILIRUBIN,TOTAL 0.5 mg/dL (0.1-1.0)
[2021-07-21] MEDS ORDERED: ZOLPIDEM TARTRATE 10 MG TABLET PO PRN (23:45)
[2021-07-22 00:05] LABS: AMPHET/METH SCREEN,URINE POSITIVE (NEGATIVE); BARBITURATE SCREEN, URINE NEGATIVE (NEGATIVE); BENZODIAZEPINES SCREEN,URINE NEGATIVE (NEGATIVE); CANNABINOID SCREEN,URINE NEGATIVE (NEGATIVE); COCAINE SCREEN,URINE NEGATIVE (NEGATIVE); METHADONE SCREEN, URINE NEGATIVE (NEGATIVE); OPIATE SCREEN,URINE NEGATIVE (NEGATIVE)
[2021-07-22 00:09] LABS: APPEARANCE,URINE CLEAR (CLEAR); BILIRUBIN,URINE NEGATIVE (NEGATIVE); GLUCOSE, URINE (UA) NEGATIVE (NEGATIVE); KETONES,URINE 40 mg/dL (NEGATIVE); LEUKOCYTE ESTERASE ,URINE NEGATIVE (NEGATIVE); NITRATE,URINE NEGATIVE (NEGATIVE); OCCULT BLOOD,URINE MODERATE (NEGATIVE); PROTEIN,URINE NEGATIVE (NEGATIVE); UROBILINOGEN,URINE 0.2 mg/dL (<=1.0)
[2021-07-22 00:11] LABS: PHENCYCLIDINE SCREEN,URINE NEGATIVE (NEGATIVE)
[2021-07-22] MEDS ORDERED: POTASSIUM CHLORIDE 10% 40 MEQ/30 ML LIQUID UDCUP PO ONE (00:15)
[2021-07-22 00:25] LABS: BACTERIA,URINE None Seen /HPF (None Seen); RBC,URINE 0-2 /HPF (0-2); SQUAMOUS EPITHELIAL CELL,UR Rare /LPF (None Seen); WBC,URINE 0-2 /HPF (0-5)
[2021-07-22 01:59] LABS: CHOL/HDL RATIO 2.4 (3.9-5.7); CHOLESTEROL 222 mg/dL (131-200); HDL CHOLESTEROL 91 mg/dL (40-60); LDL CHOL (CALC.) 116 mg/dL (0-130); TRIGLYCERIDES 75 mg/dL (15-150)
[2021-07-22] MEDS: LORazepam 2 MG TABLET PO PRN ×2 (10:20→15:09)
[2021-07-22] MEDS: HALOPERIDOL 5 MG TABLET PO PRN (10:20)
[2021-07-22] MEDS ORDERED: NICOTINE 21 MG/24 HOUR PATCH TD ONE (10:45)
[2021-07-22] MEDS ORDERED: DOCUSATE SODIUM 100 MG CAPSULE PO PRN (14:15)
[2021-07-22] MEDS ORDERED: IBUPROFEN 400 MG TABLET PO PRN (14:15)
[2021-07-22] MEDS ORDERED: ALBUTEROL SULFATE HFA 90 MCG/PUFF 8 GM INHALER IH PRN (14:15)
[2021-07-22] MEDS ORDERED: ACETAMINOPHEN 325 MG TABLET PO PRN (14:15)
[2021-07-22] MEDS ORDERED: ONDANSETRON HCL 4 MG TABLET PO PRN (14:15)
[2021-07-22] MEDS ORDERED: CloNIDine HCL 0.1 MG TABLET PO PRN (14:15)
[2021-07-22] MEDS ORDERED: GuaiFENesin/D-METHORPHAN [SUGAR-FREE] 200-20MG/10 ML SYRUP UDCUP PO PRN (14:15)
[2021-07-22] MEDS ORDERED: PETROLATUM,WHITE 28 GM JELLY TP PRN (14:15)
[2021-07-22] MEDS ORDERED: LOPERAMIDE HCL 2 MG CAPSULE PO PRN (14:15)
[2021-07-23] MEDS: LORazepam 2 MG TABLET PO PRN ×3 (02:31→17:19)
[2021-07-23] MEDS: MAG HYDROX/AL HYDROX/SIMETH ES 30 ML SUSPENSION UDCUP PO PRN (03:37)
[2021-07-23] MEDS ORDERED: QUEtiapine FUMARATE 100 MG TABLET PO ONE ×2 (04:00→21:00)
[2021-07-23 05:52] LABS: HEMOGLOBIN A1C 5.1 % (3.8-5.6)
[2021-07-23 05:53] LABS: ALANINE AMINOTRANSFERASE 32 U/L (12-78); ALBUMIN 3.6 g/dL (3.4-5.0); ALKALINE PHOSPHATASE 117 U/L (46-116); ANION GAP 7 mmol/L (8-16); ASPARTATE AMINOTRANSFERASE 29 U/L (15-37); BILIRUBIN,TOTAL 0.5 mg/dL (0.1-1.0); CALCIUM, TOTAL 9.4 mg/dL (8.8-10.5); CARBON DIOXIDE 28 mmol/L (22-29); CHLORIDE 104 mmol/L (98-107); CHOL/HDL RATIO 2.5 (3.9-5.7); CHOLESTEROL 222 mg/dL (131-200); CREATININE 0.71 mg/dL (0.60-1.30); GLOMERULAR FILTR. RATE CALC > 60 mL/min (>60); GLUCOSE,RANDOM 93 mg/dL (70-110); HDL CHOLESTEROL 90 mg/dL (40-60); LDL CHOL (CALC.) 102 mg/dL (0-130); POTASSIUM 3.7 mmol/L (3.5-5.1); SODIUM SERUM 139 mmol/L (136-145); TOTAL PROTEIN, SERUM 7.1 g/dL (6.4-8.2); TRIGLYCERIDES 150 mg/dL (15-150); UREA NITROGEN, BLOOD 8 mg/dL (7-18)
[2021-07-23] MEDS: PHENYTOIN SODIUM 100 MG ER CAPSULE PO SCH (08:59)
[2021-07-23] MEDS: HALOPERIDOL 5 MG TABLET PO PRN ×3 (12:59→20:15)
[2021-07-24 02:45] VITALS: BP 112/59
[2021-07-24] MEDS ORDERED: INFLUENZA VIRUS VACCINE QVS 2021-22 (6MO+)/PF 60 MCG/0.5 ML SYRINGE IM. ONE (06:30)
[2021-07-24] MEDS: PHENYTOIN SODIUM 100 MG ER CAPSULE PO SCH (08:15)
[2021-07-24] MEDS: LORazepam 2 MG TABLET PO PRN ×2 (08:50→13:15)
[2021-07-24 10:40] VITALS: BP 95/64
[2021-07-24] MEDS: VENLAFAXINE HCL 150 MG ER CAPSULE PO SCH (12:23)
[2021-07-24] MEDS: HALOPERIDOL 5 MG TABLET PO PRN (13:17)
[2021-07-24 16:00] VITALS: BP 102/79
[2021-07-24] MEDS: LITHIUM CARBONATE 300 MG CAPSULE PO SCH (20:25)
[2021-07-24] MEDS: QUEtiapine FUMARATE 200 MG TABLET PO SCH (20:25)
[2021-07-24] MEDS: OLANZapine 10 MG TABLET PO SCH (20:25)
[2021-07-25 08:00] VITALS: BP 101/69
[2021-07-25] MEDS: HALOPERIDOL 5 MG TABLET PO PRN ×2 (08:08→15:10)
[2021-07-25] MEDS: LORazepam 2 MG TABLET PO PRN ×2 (08:08→15:10)
[2021-07-25] MEDS: VENLAFAXINE HCL 150 MG ER CAPSULE PO SCH (08:09)
[2021-07-25] MEDS: PHENYTOIN SODIUM 100 MG ER CAPSULE PO SCH (08:09)
[2021-07-25 16:19] VITALS: BP 98/71
[2021-07-25] MEDS: LITHIUM CARBONATE 300 MG CAPSULE PO SCH (20:31)
[2021-07-25] MEDS: OLANZapine 10 MG TABLET PO SCH (20:31)
[2021-07-25] MEDS: QUEtiapine FUMARATE 200 MG TABLET PO SCH (20:32)
[2021-07-26 06:25] VITALS: BP 118/87
[2021-07-26] MEDS: LORazepam 2 MG TABLET PO PRN ×2 (06:25→12:28)
[2021-07-26] MEDS: HALOPERIDOL 5 MG TABLET PO PRN ×2 (06:25→12:28)
[2021-07-26] MEDS: PHENYTOIN SODIUM 100 MG ER CAPSULE PO SCH (08:23)
[2021-07-26] MEDS: VENLAFAXINE HCL 150 MG ER CAPSULE PO SCH (08:23)
[2021-07-26 10:00] VITALS: BP 103/75
[2021-07-26] MEDS: NICOTINE 14 MG/24 HOUR PATCH TD PRN (12:28)
[2021-07-26 16:39] VITALS: BP 99/70
[2021-07-26] MEDS: MAG HYDROX/AL HYDROX/SIMETH ES 30 ML SUSPENSION UDCUP PO PRN (18:40)
[2021-07-26] MEDS: OLANZapine 10 MG TABLET PO SCH (20:16)
[2021-07-26] MEDS: QUEtiapine FUMARATE 200 MG TABLET PO SCH (20:16)
[2021-07-26] MEDS: LITHIUM CARBONATE 300 MG CAPSULE PO SCH (20:16)
[2021-07-27 08:44] VITALS: BP 108/64
[2021-07-27] MEDS: LORazepam 2 MG TABLET PO PRN ×2 (09:15→16:04)
[2021-07-27] MEDS: HALOPERIDOL 5 MG TABLET PO PRN ×2 (09:15→16:05)
[2021-07-27] MEDS: VENLAFAXINE HCL 150 MG ER CAPSULE PO SCH (09:16)
[2021-07-27] MEDS: PHENYTOIN SODIUM 100 MG ER CAPSULE PO SCH (09:16)
[2021-07-27 14:37] LABS: COVID AG,FIA SOURCE NASOPHARYNGEAL
[2021-07-27 16:27] VITALS: BP 99/89
[2021-07-27] MEDS: QUEtiapine FUMARATE 200 MG TABLET PO SCH (20:10)
[2021-07-27] MEDS: OLANZapine 10 MG TABLET PO SCH (20:10)
[2021-07-27] MEDS: LITHIUM CARBONATE 300 MG CAPSULE PO SCH (20:10)
[2021-07-28] MEDS: PHENYTOIN SODIUM 100 MG ER CAPSULE PO SCH (08:29)
[2021-07-28] MEDS: VENLAFAXINE HCL 150 MG ER CAPSULE PO SCH (08:29)
[2021-07-28 08:50] VITALS: BP 86/59
[2021-07-28] MEDS: HALOPERIDOL 5 MG TABLET PO PRN ×2 (10:01→16:47)
[2021-07-28] MEDS: NICOTINE 14 MG/24 HOUR PATCH TD PRN (10:01)
[2021-07-28] MEDS: LORazepam 2 MG TABLET PO PRN ×2 (10:01→16:47)
[2021-07-28 16:51] VITALS: BP 94/68
[2021-07-28] MEDS: HydrOXYzine PAMOATE 25 MG CAPSULE PO PRN (18:11)
[2021-07-28] MEDS: QUEtiapine FUMARATE 200 MG TABLET PO SCH (20:14)
[2021-07-28] MEDS: OLANZapine 10 MG TABLET PO SCH (20:14)
[2021-07-28] MEDS: LITHIUM CARBONATE 300 MG CAPSULE PO SCH (20:14)
[2021-07-29] MEDS: VENLAFAXINE HCL 150 MG ER CAPSULE PO SCH (08:55)
[2021-07-29] MEDS: PHENYTOIN SODIUM 100 MG ER CAPSULE PO SCH (08:55)
[2021-07-29 08:57] VITALS: BP 94/63
[2021-07-29] MEDS: HALOPERIDOL 5 MG TABLET PO PRN (09:26)
[2021-07-29] MEDS: LORazepam 2 MG TABLET PO PRN ×2 (09:26→16:53)
[2021-07-29] MEDS: HydrOXYzine PAMOATE 25 MG CAPSULE PO PRN ×2 (11:56→17:00)
[2021-07-29 16:21] VITALS: BP 99/69
[2021-07-29] MEDS: LITHIUM CARBONATE 300 MG CAPSULE PO SCH (21:26)
[2021-07-29] MEDS: QUEtiapine FUMARATE 200 MG TABLET PO SCH (21:27)
[2021-07-29] MEDS: OLANZapine 10 MG TABLET PO SCH (21:27)
[2021-07-30] MEDS: HALOPERIDOL 5 MG TABLET PO PRN ×2 (09:39→15:00)
[2021-07-30] MEDS: PHENYTOIN SODIUM 100 MG ER CAPSULE PO SCH (09:39)
[2021-07-30] MEDS: VENLAFAXINE HCL 150 MG ER CAPSULE PO SCH (09:39)
[2021-07-30] MEDS: LORazepam 2 MG TABLET PO PRN ×2 (09:39→15:00)
[2021-07-30 09:59] VITALS: BP 103/64
[2021-07-30] MEDS: HydrOXYzine PAMOATE 25 MG CAPSULE PO PRN (13:01)
[2021-07-30 16:33] VITALS: BP 101/69
[2021-07-30] MEDS: QUEtiapine FUMARATE 200 MG TABLET PO SCH (21:10)
[2021-07-30] MEDS: OLANZapine 10 MG TABLET PO SCH (21:10)
[2021-07-30] MEDS: LITHIUM CARBONATE 300 MG CAPSULE PO SCH (21:11)
[2021-07-31] MEDS: HALOPERIDOL 5 MG TABLET PO PRN ×2 (08:30→13:10)
[2021-07-31] MEDS: LORazepam 2 MG TABLET PO PRN ×2 (08:30→13:10)
[2021-07-31] MEDS: NICOTINE 14 MG/24 HOUR PATCH TD PRN (08:34)
[2021-07-31] MEDS: PHENYTOIN SODIUM 100 MG ER CAPSULE PO SCH (08:35)
[2021-07-31] MEDS: VENLAFAXINE HCL 150 MG ER CAPSULE PO SCH (08:35)
[2021-07-31 10:13] VITALS: BP 100/62
[2021-07-31 16:38] VITALS: BP 99/63
[2021-07-31] MEDS: MAG HYDROX/AL HYDROX/SIMETH ES 30 ML SUSPENSION UDCUP PO PRN (17:55)
[2021-07-31] MEDS: HydrOXYzine PAMOATE 25 MG CAPSULE PO PRN (17:55)
[2021-07-31] MEDS: QUEtiapine FUMARATE 200 MG TABLET PO SCH (20:50)
[2021-07-31] MEDS: OLANZapine 10 MG TABLET PO SCH (20:50)
[2021-07-31] MEDS: LITHIUM CARBONATE 300 MG CAPSULE PO SCH (20:50)
[2021-08-01] MEDS: HALOPERIDOL 5 MG TABLET PO PRN ×2 (08:49→14:09)
[2021-08-01] MEDS: LORazepam 2 MG TABLET PO PRN ×2 (08:49→14:09)
[2021-08-01] MEDS: VENLAFAXINE HCL 150 MG ER CAPSULE PO SCH (08:49)
[2021-08-01] MEDS: PHENYTOIN SODIUM 100 MG ER CAPSULE PO SCH (08:49)
[2021-08-01] MEDS: NICOTINE 14 MG/24 HOUR PATCH TD PRN (10:23)
[2021-08-01 12:16] VITALS: BP 87/54
[2021-08-01 16:38] VITALS: BP 109/67
[2021-08-01] MEDS: HydrOXYzine PAMOATE 25 MG CAPSULE PO PRN (17:45)
[2021-08-01] MEDS: LITHIUM CARBONATE 300 MG CAPSULE PO SCH (20:12)
[2021-08-01] MEDS: OLANZapine 10 MG TABLET PO SCH (20:12)
[2021-08-01] MEDS: QUEtiapine FUMARATE 200 MG TABLET PO SCH (20:12)
[2021-08-02] MEDS: HALOPERIDOL 5 MG TABLET PO PRN ×2 (08:53→16:12)
[2021-08-02] MEDS: LORazepam 2 MG TABLET PO PRN ×2 (08:53→16:12)
[2021-08-02] MEDS: VENLAFAXINE HCL 150 MG ER CAPSULE PO SCH (08:53)
[2021-08-02] MEDS: PHENYTOIN SODIUM 100 MG ER CAPSULE PO SCH (08:53)
[2021-08-02 09:00] VITALS: BP 83/52
[2021-08-02] MEDS: NICOTINE 14 MG/24 HOUR PATCH TD PRN (09:39)
[2021-08-02] MEDS: HydrOXYzine PAMOATE 25 MG CAPSULE PO PRN (12:40)
[2021-08-02 16:18] VITALS: BP 105/66
[2021-08-02] MEDS: QUEtiapine FUMARATE 200 MG TABLET PO SCH (20:38)
[2021-08-02] MEDS: LITHIUM CARBONATE 300 MG CAPSULE PO SCH (20:38)
[2021-08-02] MEDS: OLANZapine 10 MG TABLET PO SCH (20:38)
[2021-08-03] MEDS: HALOPERIDOL 5 MG TABLET PO PRN ×2 (08:13→13:56)
[2021-08-03] MEDS: VENLAFAXINE HCL 150 MG ER CAPSULE PO SCH (08:13)
[2021-08-03] MEDS: LORazepam 2 MG TABLET PO PRN ×2 (08:13→13:56)
[2021-08-03] MEDS: PHENYTOIN SODIUM 100 MG ER CAPSULE PO SCH (08:14)
[2021-08-03] MEDS: NICOTINE 14 MG/24 HOUR PATCH TD PRN (08:19)
[2021-08-03 09:26] VITALS: BP 90/54
[2021-08-03 16:50] VITALS: BP 105/71
[2021-08-03] MEDS: MAGNESIUM HYDROXIDE SUSPENSION 30 ML UDCUP PO PRN (17:04)
[2021-08-03] MEDS: HydrOXYzine PAMOATE 25 MG CAPSULE PO PRN (19:07)
[2021-08-03] MEDS: LITHIUM CARBONATE 300 MG CAPSULE PO SCH (20:51)
[2021-08-03] MEDS: OLANZapine 10 MG TABLET PO SCH (20:52)
[2021-08-03] MEDS: QUEtiapine FUMARATE 200 MG TABLET PO SCH (20:52)
[2021-08-04 06:43] LABS: COVID AG,FIA SOURCE NASAL SWAB
[2021-08-04] MEDS: PHENYTOIN SODIUM 100 MG ER CAPSULE PO SCH (08:58)
[2021-08-04] MEDS: HALOPERIDOL 5 MG TABLET PO PRN ×2 (08:58→13:09)
[2021-08-04] MEDS: LORazepam 2 MG TABLET PO PRN ×2 (08:58→13:09)
[2021-08-04] MEDS: VENLAFAXINE HCL 150 MG ER CAPSULE PO SCH (08:58)
[2021-08-04 09:10] VITALS: BP 85/54
[2021-08-04] MEDS: NICOTINE 14 MG/24 HOUR PATCH TD PRN (13:09)
[2021-08-04] MEDS: MAGNESIUM HYDROXIDE SUSPENSION 30 ML UDCUP PO PRN (13:13)
[2021-08-04 16:27] VITALS: BP 100/68
[2021-08-04] MEDS: HydrOXYzine PAMOATE 25 MG CAPSULE PO PRN (17:33)
[2021-08-04] MEDS: LITHIUM CARBONATE 300 MG CAPSULE PO SCH (20:35)
[2021-08-04] MEDS: QUEtiapine FUMARATE 200 MG TABLET PO SCH (20:36)
[2021-08-04] MEDS: OLANZapine 10 MG TABLET PO SCH (20:36)
[2021-08-05] MEDS: VENLAFAXINE HCL 150 MG ER CAPSULE PO SCH (08:49)
[2021-08-05] MEDS: PHENYTOIN SODIUM 100 MG ER CAPSULE PO SCH (08:49)
[2021-08-05 09:00] VITALS: BP 100/66
[2021-08-05] MEDS: HALOPERIDOL 5 MG TABLET PO PRN ×2 (09:00→14:59)
[2021-08-05] MEDS: LORazepam 2 MG TABLET PO PRN ×4 (09:00→14:58)
[2021-08-05] MEDS: NICOTINE 14 MG/24 HOUR PATCH TD PRN (14:58)
[2021-08-05 16:22] VITALS: BP 102/65
[2021-08-05] MEDS: HydrOXYzine PAMOATE 25 MG CAPSULE PO PRN (16:52)
[2021-08-05] MEDS: MAGNESIUM HYDROXIDE SUSPENSION 30 ML UDCUP PO PRN (16:55)
[2021-08-05] MEDS: OLANZapine 10 MG TABLET PO SCH (20:08)
[2021-08-05] MEDS: LITHIUM CARBONATE 300 MG CAPSULE PO SCH (20:08)
[2021-08-05] MEDS: QUEtiapine FUMARATE 200 MG TABLET PO SCH (20:08)
[2021-08-06] MEDS: VENLAFAXINE HCL 150 MG ER CAPSULE PO SCH (09:40)
[2021-08-06] MEDS: PHENYTOIN SODIUM 100 MG ER CAPSULE PO SCH (09:40)
[2021-08-06] MEDS: LORazepam 2 MG TABLET PO PRN (10:42)
[2021-08-06] MEDS: HALOPERIDOL 5 MG TABLET PO PRN (10:42)
[2021-08-06] MEDS: NICOTINE 21 MG/24 HOUR PATCH TD SCH (14:10)
[2021-08-06 16:00] VITALS: BP 97/65
[2021-08-06] MEDS: HydrOXYzine PAMOATE 50 MG CAPSULE PO PRN (16:46)
[2021-08-06] MEDS: LITHIUM CARBONATE 300 MG CAPSULE PO SCH (20:13)
[2021-08-06] MEDS: OLANZapine 10 MG TABLET PO SCH (20:13)
[2021-08-06] MEDS: QUEtiapine FUMARATE 200 MG TABLET PO SCH (20:13)
[2021-08-07 08:05] VITALS: BP 90/58
[2021-08-07] MEDS: VENLAFAXINE HCL 150 MG ER CAPSULE PO SCH (09:25)
[2021-08-07] MEDS: PHENYTOIN SODIUM 100 MG ER CAPSULE PO SCH (09:25)
[2021-08-07] MEDS: NICOTINE 21 MG/24 HOUR PATCH TD SCH (09:26)
[2021-08-07] MEDS: LORazepam 2 MG TABLET PO PRN (10:24)
[2021-08-07] MEDS: HALOPERIDOL 5 MG TABLET PO PRN (10:24)
[2021-08-07 16:26] VITALS: BP 106/74
[2021-08-07] MEDS: HydrOXYzine PAMOATE 50 MG CAPSULE PO PRN (18:35)
[2021-08-07] MEDS: MAGNESIUM HYDROXIDE SUSPENSION 30 ML UDCUP PO PRN (19:45)
[2021-08-07] MEDS: LITHIUM CARBONATE 300 MG CAPSULE PO SCH (20:06)
[2021-08-07] MEDS: OLANZapine 10 MG TABLET PO SCH (20:06)
[2021-08-07] MEDS: QUEtiapine FUMARATE 200 MG TABLET PO SCH (20:06)
[2021-08-08] MEDS: VENLAFAXINE HCL 150 MG ER CAPSULE PO SCH (09:23)
[2021-08-08] MEDS: PHENYTOIN SODIUM 100 MG ER CAPSULE PO SCH (09:24)
[2021-08-08] MEDS: NICOTINE 21 MG/24 HOUR PATCH TD SCH (09:25)
[2021-08-08] MEDS: HALOPERIDOL 5 MG TABLET PO PRN (09:44)
[2021-08-08] MEDS: MAGNESIUM HYDROXIDE SUSPENSION 30 ML UDCUP PO PRN (09:44)
[2021-08-08] MEDS: LORazepam 2 MG TABLET PO PRN (09:44)
[2021-08-08 09:45] VITALS: BP 100/66
[2021-08-08 16:58] VITALS: BP 95/62
[2021-08-08] MEDS: HydrOXYzine PAMOATE 50 MG CAPSULE PO PRN (17:03)
[2021-08-08] MEDS: OLANZapine 10 MG TABLET PO SCH (20:03)
[2021-08-08] MEDS: LITHIUM CARBONATE 300 MG CAPSULE PO SCH (20:03)
[2021-08-08] MEDS: QUEtiapine FUMARATE 200 MG TABLET PO SCH (20:03)
[2021-08-09] MEDS: LORazepam 2 MG TABLET PO PRN (03:39)
[2021-08-09 04:12] VITALS: BP 131/75
[2021-08-09 08:02] VITALS: BP 100/61
[2021-08-09] MEDS: PHENYTOIN SODIUM 100 MG ER CAPSULE PO SCH (08:28)
[2021-08-09] MEDS: VENLAFAXINE HCL 150 MG ER CAPSULE PO SCH (08:28)
[2021-08-09] MEDS: NICOTINE 21 MG/24 HOUR PATCH TD SCH (08:29)
[2021-08-09] MEDS: HALOPERIDOL 5 MG TABLET PO PRN ×2 (08:29→20:16)
[2021-08-09] MEDS: HydrOXYzine PAMOATE 50 MG CAPSULE PO PRN ×2 (10:35→16:59)
[2021-08-09 16:33] VITALS: BP 121/80
[2021-08-09] MEDS: OLANZapine 10 MG TABLET PO SCH (20:16)
[2021-08-09] MEDS: LITHIUM CARBONATE 300 MG CAPSULE PO SCH (20:16)
[2021-08-09] MEDS: QUEtiapine FUMARATE 200 MG TABLET PO SCH (20:16)
[2021-08-10 04:25] VITALS: BP 116/80
[2021-08-10] MEDS: HydrOXYzine PAMOATE 50 MG CAPSULE PO PRN ×2 (04:33→15:16)
[2021-08-10 08:00] VITALS: BP 108/58
[2021-08-10] MEDS: LORazepam 2 MG TABLET PO PRN (08:40)
[2021-08-10] MEDS: PHENYTOIN SODIUM 100 MG ER CAPSULE PO SCH (08:40)
[2021-08-10] MEDS: HALOPERIDOL 5 MG TABLET PO PRN ×2 (08:40→16:27)
[2021-08-10] MEDS: VENLAFAXINE HCL 150 MG ER CAPSULE PO SCH (08:41)
[2021-08-10] MEDS: NICOTINE 21 MG/24 HOUR PATCH TD SCH (08:42)
[2021-08-10 16:59] VITALS: BP 107/63
[2021-08-10] MEDS: OLANZapine 10 MG TABLET PO SCH (20:27)
[2021-08-10] MEDS: QUEtiapine FUMARATE 200 MG TABLET PO SCH (20:27)
[2021-08-10] MEDS: LITHIUM CARBONATE 300 MG CAPSULE PO SCH (20:27)
[2021-08-11 04:45] VITALS: BP 135/80
[2021-08-11] MEDS: HydrOXYzine PAMOATE 50 MG CAPSULE PO PRN ×3 (04:55→14:18)
[2021-08-11] MEDS: HALOPERIDOL 5 MG TABLET PO PRN ×2 (04:55→17:42)
[2021-08-11 08:00] VITALS: BP 97/65
[2021-08-11] MEDS: VENLAFAXINE HCL 150 MG ER CAPSULE PO SCH (09:06)
[2021-08-11] MEDS: PHENYTOIN SODIUM 100 MG ER CAPSULE PO SCH (09:06)
[2021-08-11] MEDS: NICOTINE 21 MG/24 HOUR PATCH TD SCH (09:07)
[2021-08-11 10:41] LABS: COVID AG,FIA SOURCE NASOPHARYNGEAL
[2021-08-11 16:00] VITALS: BP 104/74
[2021-08-11] MEDS: MAGNESIUM HYDROXIDE SUSPENSION 30 ML UDCUP PO PRN (19:00)
[2021-08-11] MEDS: QUEtiapine FUMARATE 300 MG TABLET PO SCH (20:56)
[2021-08-11] MEDS: LITHIUM CARBONATE 300 MG CAPSULE PO SCH (20:56)
[2021-08-11] MEDS: OLANZapine 10 MG TABLET PO SCH (20:56)
[2021-08-12 05:35] VITALS: BP 122/79
[2021-08-12] MEDS: HALOPERIDOL 5 MG TABLET PO PRN ×2 (05:37→11:58)
[2021-08-12] MEDS: HydrOXYzine PAMOATE 50 MG CAPSULE PO PRN ×3 (05:37→18:50)
[2021-08-12] MEDS: VENLAFAXINE HCL 150 MG ER CAPSULE PO SCH (08:10)
[2021-08-12] MEDS: NICOTINE 21 MG/24 HOUR PATCH TD SCH (08:10)
[2021-08-12] MEDS: PHENYTOIN SODIUM 100 MG ER CAPSULE PO SCH (08:11)
[2021-08-12 09:00] VITALS: BP 91/59
[2021-08-12 16:00] VITALS: BP 111/71
[2021-08-12] MEDS: OLANZapine 10 MG TABLET PO SCH (20:07)
[2021-08-12] MEDS: LITHIUM CARBONATE 300 MG CAPSULE PO SCH (20:08)
[2021-08-12] MEDS: QUEtiapine FUMARATE 300 MG TABLET PO SCH (20:08)
[2021-08-13] MEDS: HALOPERIDOL 5 MG TABLET PO PRN ×2 (03:34→13:24)
[2021-08-13 03:36] VITALS: BP 133/83
[2021-08-13 08:31] VITALS: BP 100/70
[2021-08-13] MEDS: HydrOXYzine PAMOATE 50 MG CAPSULE PO PRN ×2 (09:56→18:34)
[2021-08-13] MEDS: PHENYTOIN SODIUM 100 MG ER CAPSULE PO SCH (09:56)
[2021-08-13] MEDS: NICOTINE 21 MG/24 HOUR PATCH TD SCH (09:57)
[2021-08-13] MEDS: VENLAFAXINE HCL 150 MG ER CAPSULE PO SCH (09:57)
[2021-08-13 16:00] VITALS: BP 112/79
[2021-08-13] MEDS: MAGNESIUM HYDROXIDE SUSPENSION 30 ML UDCUP PO PRN (18:36)
[2021-08-13] MEDS: LITHIUM CARBONATE 300 MG CAPSULE PO SCH (20:05)
[2021-08-13] MEDS: OLANZapine 10 MG TABLET PO SCH (20:05)
[2021-08-13] MEDS: QUEtiapine FUMARATE 300 MG TABLET PO SCH (20:05)
[2021-08-14] MEDS: HALOPERIDOL 5 MG TABLET PO PRN ×2 (06:10→19:16)
[2021-08-14 08:00] VITALS: BP 104/69
[2021-08-14] MEDS: VENLAFAXINE HCL 150 MG ER CAPSULE PO SCH (08:34)
[2021-08-14] MEDS: PHENYTOIN SODIUM 100 MG ER CAPSULE PO SCH (08:34)
[2021-08-14] MEDS: NICOTINE 21 MG/24 HOUR PATCH TD SCH (08:35)
[2021-08-14] MEDS: HydrOXYzine PAMOATE 50 MG CAPSULE PO PRN ×2 (11:13→16:17)
[2021-08-14] MEDS: MAGNESIUM HYDROXIDE SUSPENSION 30 ML UDCUP PO PRN (16:17)
[2021-08-14 17:24] VITALS: BP 107/70
[2021-08-14] MEDS: QUEtiapine FUMARATE 300 MG TABLET PO SCH (19:20)
[2021-08-14] MEDS: LITHIUM CARBONATE 300 MG CAPSULE PO SCH (19:20)
[2021-08-14] MEDS: OLANZapine 10 MG TABLET PO SCH (19:20)
[2021-08-15 01:35] VITALS: BP 117/79
[2021-08-15] MEDS: HALOPERIDOL 5 MG TABLET PO PRN ×3 (01:37→14:51)
[2021-08-15 08:00] VITALS: BP 106/65
[2021-08-15] MEDS: HydrOXYzine PAMOATE 50 MG CAPSULE PO PRN ×3 (08:14→19:33)
[2021-08-15] MEDS: VENLAFAXINE HCL 150 MG ER CAPSULE PO SCH (08:15)
[2021-08-15] MEDS: NICOTINE 21 MG/24 HOUR PATCH TD SCH (08:19)
[2021-08-15 16:00] VITALS: BP 105/74
[2021-08-15] MEDS: QUEtiapine FUMARATE 300 MG TABLET PO SCH (20:09)
[2021-08-15] MEDS: OLANZapine 10 MG TABLET PO SCH (20:10)
[2021-08-15] MEDS: LITHIUM CARBONATE 300 MG CAPSULE PO SCH (20:10)
[2021-08-16 03:40] VITALS: BP 122/80
[2021-08-16] MEDS: HydrOXYzine PAMOATE 50 MG CAPSULE PO PRN ×3 (03:56→15:56)
[2021-08-16] MEDS: HALOPERIDOL 5 MG TABLET PO PRN ×3 (03:56→15:57)
[2021-08-16 08:00] VITALS: BP 99/65
[2021-08-16] MEDS: NICOTINE 21 MG/24 HOUR PATCH TD SCH (09:18)
[2021-08-16] MEDS: VENLAFAXINE HCL 150 MG ER CAPSULE PO SCH (09:18)
[2021-08-16 16:26] VITALS: BP 102/77
[2021-08-16] MEDS: QUEtiapine FUMARATE 300 MG TABLET PO SCH (20:03)
[2021-08-16] MEDS: OLANZapine 10 MG TABLET PO SCH (20:03)
[2021-08-16] MEDS: LITHIUM CARBONATE 300 MG CAPSULE PO SCH (20:03)
[2021-08-17 04:04] VITALS: BP 112/74
[2021-08-17] MEDS: HydrOXYzine PAMOATE 50 MG CAPSULE PO PRN ×3 (04:04→16:00)
[2021-08-17] MEDS: HALOPERIDOL 5 MG TABLET PO PRN ×3 (04:04→19:45)
[2021-08-17] MEDS: VENLAFAXINE HCL 150 MG ER CAPSULE PO SCH (09:26)
[2021-08-17] MEDS: NICOTINE 21 MG/24 HOUR PATCH TD SCH (09:28)
[2021-08-17] MEDS: PHENYTOIN SODIUM 100 MG ER CAPSULE PO SCH (16:00)
[2021-08-17 16:14] VITALS: BP 113/71
[2021-08-17 18:43] LABS: COVID AG,FIA SOURCE NASAL SWAB
[2021-08-17] MEDS: QUEtiapine FUMARATE 300 MG TABLET PO SCH (20:41)
[2021-08-17] MEDS: LITHIUM CARBONATE 300 MG CAPSULE PO SCH (20:41)
[2021-08-17] MEDS: OLANZapine 10 MG TABLET PO SCH (20:41)
[2021-08-18 06:15] LABS: HEMATOCRIT 37.5 % (36-46); HEMOGLOBIN 12.8 g/dL (12.0-16.0); MEAN CORPUSCULAR HEMOGLOBIN 31.4 pg (26.0-34.0); MEAN CORPUSCULAR HGB CONC 34.1 G/dL (31.0-37.0); MEAN CORPUSCULAR VOLUME 92 fL (80-100); PLATELET COUNT (AUTO) 187 K/uL (150-450); RED BLOOD CELL COUNT(AUTO) 4.07 MIL/uL (4.00-5.20); RED CELL DISTRIBUTION WIDTH 13.1 % (11.5-14.5)
[2021-08-18 06:40] LABS: ALANINE AMINOTRANSFERASE 47 U/L (12-78); ALBUMIN 3.6 g/dL (3.4-5.0); ALKALINE PHOSPHATASE 140 U/L (46-116); ANION GAP 7 mmol/L (8-16); ASPARTATE AMINOTRANSFERASE 25 U/L (15-37); BILIRUBIN,TOTAL 0.3 mg/dL (0.1-1.0); CALCIUM, TOTAL 9.3 mg/dL (8.8-10.5); CARBON DIOXIDE 26 mmol/L (22-29); CHLORIDE 106 mmol/L (98-107); GLOMERULAR FILTR. RATE CALC > 60 mL/min (>60); GLUCOSE,RANDOM 93 mg/dL (70-110); POTASSIUM 4.2 mmol/L (3.5-5.1); SODIUM SERUM 139 mmol/L (136-145); TOTAL PROTEIN, SERUM 7.1 g/dL (6.4-8.2); UREA NITROGEN, BLOOD 14 mg/dL (7-18)
[2021-08-18 07:01] LABS: BAND NEUTROPHILS % (MANUAL) 2 % (0-5); EOSINOPHILS % (MANUAL) 3 % (1-6); LYMPHOCYTES % (MANUAL) 24 % (22-44); MONOCYTES % (MANUAL) 3 % (2-9); SEGMENTED NEUTROPHILS % 68 % (40-70)
[2021-08-18 07:16] LABS: LITHIUM 0.91 mmol/L (0.60-1.20)
[2021-08-18 08:00] VITALS: BP 98/63
[2021-08-18] MEDS: PHENYTOIN SODIUM 100 MG ER CAPSULE PO SCH (08:13)
[2021-08-18] MEDS: NICOTINE 21 MG/24 HOUR PATCH TD SCH (08:14)
[2021-08-18] MEDS: VENLAFAXINE HCL 150 MG ER CAPSULE PO SCH (08:14)
[2021-08-18] MEDS: HydrOXYzine PAMOATE 50 MG CAPSULE PO PRN ×2 (08:54→15:57)
[2021-08-18] MEDS: HALOPERIDOL 5 MG TABLET PO PRN ×2 (08:54→15:57)
[2021-08-18] MEDS ORDERED: LITH300C3 PO (15:08)
[2021-08-18] MEDS ORDERED: VENL150C2 PO (15:08)
[2021-08-18] MEDS ORDERED: QUET200T PO (15:08)
== END 2021-08-18 16:44 | disposition home or self-care (01) | DRG 750 ==
LOC: EMS 21:01 → 3EI 07-24 01:41
PROVIDERS: ADMIT Psychiatry & Neurology Child & Adolescent Psychiatry; ATTEND Psychiatry & Neurology Child & Adolescent Psychiatry
DX: F25.1 Schizoaffective disorder, depressive type (principal); G40.909 Epilepsy, unspecified, not intractable, without status epilepticus; K74.60 Unspecified cirrhosis of liver; R45.851 Suicidal ideations; E87.6 Hypokalemia; F10.10 Alcohol abuse, uncomplicated; F31.9 Bipolar disorder, unspecified; Z20.822 Contact with and (suspected) exposure to COVID-19; F15.10 Other stimulant abuse, uncomplicated; F60.0 Paranoid personality disorder; F17.210 Nicotine dependence, cigarettes, uncomplicated; J44.9 Chronic obstructive pulmonary disease, unspecified; K31.84 Gastroparesis; Z59.00 Homelessness unspecified; Z79.899 Other long term (current) drug therapy; Z88.2 Allergy status to sulfonamides
CPT/HCPCS: 80053; 80061; 80178; 80185; 81001; 83036; 84703; 85007; 85025; 85027; 87081; 90686; 93005; 99291; G0480; J1200; J1630; J2060

== ENCOUNTER 2021-09-18 21:52 | Inpatient (IN) | payer MEDICAID, OTHER ==
[~2021-09-18] VITALS: Ht 167.6 cm; Wt 57.6 kg
[~2021-09-18 21:52] MED LIST changes: -OLAN10TA74 PO; -VALA500T42 PO; -VENL150C2 PO; +VENL150C4 PO
[2021-09-18 22:24] LABS: BASOPHILS % (AUTO) 0.5 % (0.0-2.0); EOSINOPHILS % (AUTO) 2.4 % (1.0-6.0); HEMATOCRIT 39.3 % (36-46); LYMPHOCYTES # (AUTO) 1.8 K/uL (1.0-4.8); LYMPHOCYTES % (AUTO) 34.9 % (22.0-44.0); MEAN CORPUSCULAR HEMOGLOBIN 32.3 pg (26.0-34.0); MEAN CORPUSCULAR HGB CONC 33.2 G/dL (31.0-37.0); MEAN CORPUSCULAR VOLUME 98 fL (80-100); MONOCYTES # (AUTO) 0.3 K/uL (0.1-1.0); NEUTROPHILS % (AUTO) 56.2 % (40.0-70.0); PLATELET COUNT (AUTO) 163 K/uL (150-450); RED BLOOD CELL COUNT(AUTO) 4.04 MIL/uL (4.00-5.20); RED CELL DISTRIBUTION WIDTH 14.6 % (11.5-14.5)
[2021-09-18 22:49] LABS: ANION GAP 12 mmol/L (8-16); CALCIUM, TOTAL 8.9 mg/dL (8.8-10.5); CARBON DIOXIDE 24 mmol/L (22-29); CHLORIDE 103 mmol/L (98-107); CREATININE 0.74 mg/dL (0.60-1.30); GLOMERULAR FILTR. RATE CALC > 60 mL/min (>60); GLUCOSE,RANDOM 85 mg/dL (70-110); POTASSIUM 3.4 mmol/L (3.5-5.1); SODIUM SERUM 139 mmol/L (136-145); UREA NITROGEN, BLOOD 7 mg/dL (7-18)
[2021-09-18 22:54] LABS: LITHIUM < 0.20 mmol/L (0.60-1.20)
[2021-09-18 22:56] LABS: ALANINE AMINOTRANSFERASE 33 U/L (12-78); ALKALINE PHOSPHATASE 121 U/L (46-116); ASPARTATE AMINOTRANSFERASE 36 U/L (15-37); BILIRUBIN,TOTAL 0.3 mg/dL (0.1-1.0)
[2021-09-18 23:11] LABS: PHENYTOIN (DILANTIN) < 0.5 mcg/mL (10.0-20.0)
[2021-09-18] MEDS ORDERED: DiphenhydrAMINE HCL 50 MG/ML VIAL IM ONE (23:15)
[2021-09-18] MEDS ORDERED: HALOPERIDOL LACTATE 5 MG/ML VIAL IM ONE (23:15)
[2021-09-18] MEDS ORDERED: LORazepam 2 MG/ML VIAL IM ONE (23:15)
[2021-09-18] MEDS ORDERED: POTASSIUM CHLORIDE 20 MEQ ER TABLET PO ONE (23:45)
[2021-09-19] VITALS (9 sets, daily range): BP systolic 71–101; BP diastolic 50–69
[2021-09-19] MEDS ORDERED: ZOLPIDEM TARTRATE 10 MG TABLET PO PRN (00:30)
[2021-09-19] MEDS ORDERED: LORazepam 2 MG TABLET PO PRN (00:30)
[2021-09-19] MEDS ORDERED: OLANZapine 5 MG RAPDIS TABLET PO PRN (00:30)
[2021-09-19 01:22] LABS: COVID AG,FIA SOURCE NASAL SWAB
[2021-09-19] MEDS ORDERED: PNEUMOCOCCAL VACCINE POLYVALENT 0.5 ML VIAL [PPSV23] IM. ONE (06:15)
[2021-09-19] MEDS ORDERED: MAG HYDROX/AL HYDROX/SIMETH ES 30 ML SUSPENSION UDCUP PO PRN (10:00)
[2021-09-19] MEDS ORDERED: DIAZEPAM 10 MG TABLET PO PRN (10:00)
[2021-09-19] MEDS ORDERED: ACETAMINOPHEN 325 MG TABLET PO PRN (10:00)
[2021-09-19] MEDS ORDERED: CYANOCOBALAMIN 1,000 MCG/ML VIAL IM ONE (10:00)
[2021-09-19] MEDS ORDERED: TUBERCULIN, PURIFIED PROTEIN DERIVATIVE 5 TU/0.1 ML SYRINGE ID ONE (10:00)
[2021-09-19] MEDS ORDERED: PROMETHAZINE HCL 25 MG TABLET PO PRN (10:00)
[2021-09-19] MEDS ORDERED: LOPERAMIDE HCL 2 MG CAPSULE PO PRN (10:00)
[2021-09-19] MEDS ORDERED: GuaiFENesin/D-METHORPHAN [SUGAR-FREE] 200-20MG/10 ML SYRUP UDCUP PO PRN (10:00)
[2021-09-19] MEDS: PHENYTOIN SODIUM 100 MG ER CAPSULE PO SCH (10:59)
[2021-09-19] MEDS: THIAMINE 100 MG TABLET PO SCH (16:02)
[2021-09-20] VITALS (9 sets, daily range): BP systolic 102–108; BP diastolic 53–81
[2021-09-20 06:44] LABS: HEMOGLOBIN A1C 4.3 % (3.8-5.6)
[2021-09-20 06:55] LABS: CHOL/HDL RATIO 1.8 (3.9-5.7); FREE T4 (FREE THYROXINE) 0.93 ng/dL (0.76-1.46); THYROID STIMULATING HORMONE 1.28 uIU/mL (0.36-3.74)
[2021-09-20] MEDS ORDERED: DIAZEPAM 10 MG TABLET PO PRN (07:00)
[2021-09-20] MEDS: NALTREXONE HCL 50 MG TABLET PO SCH (09:12)
[2021-09-20] MEDS: FOLIC ACID 1 MG TABLET PO SCH (09:12)
[2021-09-20] MEDS: MULTIVITAMINS WITH MINERALS, THERAPEUTIC TABLET PO SCH (09:12)
[2021-09-20] MEDS: THIAMINE 100 MG TABLET PO SCH ×2 (09:12→16:11)
[2021-09-20] MEDS: PHENYTOIN SODIUM 100 MG ER CAPSULE PO SCH (09:13)
[2021-09-20] MEDS: DIAZEPAM 10 MG TABLET PO SCH ×4 (09:13→20:12)
[2021-09-20] MEDS: PRAZOSIN HCL 2 MG CAPSULE PO SCH (20:12)
[2021-09-20 20:17] LABS: APPEARANCE,URINE HAZY (CLEAR); BILIRUBIN,URINE NEGATIVE (NEGATIVE); GLUCOSE, URINE (UA) NEGATIVE (NEGATIVE); KETONES,URINE NEGATIVE (NEGATIVE); LEUKOCYTE ESTERASE ,URINE MODERATE (NEGATIVE); NITRATE,URINE NEGATIVE (NEGATIVE); OCCULT BLOOD,URINE SMALL (NEGATIVE); PH,URINE 6.5 (5.0-8.0); PROTEIN,URINE TRACE mg/dL (NEGATIVE); SPECIFIC GRAVITIY, URINE 1.008 (1.003-1.030); UROBILINOGEN,URINE <=1.0 mg/dL (<=1.0)
[2021-09-20 20:24] LABS: AMPHET/METH SCREEN,URINE NEGATIVE (NEGATIVE); BARBITURATE SCREEN, URINE NEGATIVE (NEGATIVE); BENZODIAZEPINES SCREEN,URINE POSITIVE (NEGATIVE); CANNABINOID SCREEN,URINE NEGATIVE (NEGATIVE); COCAINE SCREEN,URINE NEGATIVE (NEGATIVE); METHADONE SCREEN, URINE NEGATIVE (NEGATIVE); OPIATE SCREEN,URINE NEGATIVE (NEGATIVE)
[2021-09-20 20:28] LABS: PHENCYCLIDINE SCREEN,URINE NEGATIVE (NEGATIVE)
[2021-09-20 20:31] LABS: RBC,URINE 0-2 /HPF (0-2)
[2021-09-20 20:32] LABS: BACTERIA,URINE Moderate /HPF (None Seen); SQUAMOUS EPITHELIAL CELL,UR Moderate /LPF (None Seen)
[2021-09-20] MEDS ORDERED: QUEtiapine FUMARATE 200 MG TABLET PO SCH (21:00)
[2021-09-20] MEDS ORDERED: OLANZapine 5 MG RAPDIS TABLET PO SCH (21:00)
[2021-09-21 05:56] VITALS: BP 112/86
[2021-09-21 06:03] VITALS: BP 112/86
[2021-09-21 08:00] VITALS: BP 107/74
[2021-09-21 10:45] VITALS: BP 105/73
[2021-09-21] MEDS: PHENYTOIN SODIUM 100 MG ER CAPSULE PO SCH (10:47)
[2021-09-21] MEDS: QUEtiapine FUMARATE 25 MG TABLET PO SCH ×2 (10:47→16:03)
[2021-09-21] MEDS: THIAMINE 100 MG TABLET PO SCH ×2 (10:47→16:03)
[2021-09-21] MEDS: MULTIVITAMINS WITH MINERALS, THERAPEUTIC TABLET PO SCH (10:47)
[2021-09-21] MEDS: NALTREXONE HCL 50 MG TABLET PO SCH (10:47)
[2021-09-21] MEDS: FOLIC ACID 1 MG TABLET PO SCH (10:47)
[2021-09-21] MEDS: DIAZEPAM 10 MG TABLET PO SCH ×4 (10:47→20:08)
[2021-09-21] MEDS: NICOTINE 21 MG/24 HOUR PATCH TD SCH (10:50)
[2021-09-21 12:58] VITALS: BP 100/68
[2021-09-21 16:00] VITALS: BP_SYST 104; BP_SYST 107; BP_DIAS 65
[2021-09-21] MEDS: HydrOXYzine PAMOATE 50 MG CAPSULE PO PRN (17:43)
[2021-09-21] MEDS: PRAZOSIN HCL 2 MG CAPSULE PO SCH (20:08)
[2021-09-21] MEDS: QUEtiapine FUMARATE 200 MG TABLET PO SCH (20:08)
[2021-09-22 06:06] VITALS: BP 98/52
[2021-09-22] MEDS ORDERED: DIAZEPAM 5 MG TABLET PO PRN (07:00)
[2021-09-22 08:00] VITALS: BP 108/76
[2021-09-22] MEDS: FOLIC ACID 1 MG TABLET PO SCH (08:32)
[2021-09-22] MEDS: QUEtiapine FUMARATE 25 MG TABLET PO SCH ×2 (08:32→16:10)
[2021-09-22] MEDS: MULTIVITAMINS WITH MINERALS, THERAPEUTIC TABLET PO SCH (08:32)
[2021-09-22] MEDS: PHENYTOIN SODIUM 100 MG ER CAPSULE PO SCH (08:32)
[2021-09-22] MEDS: DIAZEPAM 5 MG TABLET PO SCH ×4 (08:32→20:06)
[2021-09-22] MEDS: THIAMINE 100 MG TABLET PO SCH ×2 (08:32→16:10)
[2021-09-22] MEDS: CIPROFLOXACIN HCL 500 MG TABLET PO SCH ×2 (08:37→16:10)
[2021-09-22] MEDS: NICOTINE 21 MG/24 HOUR PATCH TD SCH (08:38)
[2021-09-22] MEDS: NALTREXONE HCL 50 MG TABLET PO SCH (08:38)
[2021-09-22] MEDS: QUEtiapine FUMARATE 100 MG TABLET PO PRN (14:52)
[2021-09-22 16:00] VITALS: BP 99/69
[2021-09-22] MEDS: HydrOXYzine PAMOATE 50 MG CAPSULE PO PRN (18:45)
[2021-09-22 19:44] VITALS: BP 109/69
[2021-09-22] MEDS: QUEtiapine FUMARATE 200 MG TABLET PO SCH (20:06)
[2021-09-22] MEDS: PRAZOSIN HCL 2 MG CAPSULE PO SCH (20:06)
[2021-09-22] MEDS: LITHIUM CARBONATE 300 MG CAPSULE PO SCH (20:07)
[2021-09-23] MEDS ORDERED: DIAZEPAM 5 MG TABLET PO PRN (07:00)
[2021-09-23] MEDS: QUEtiapine FUMARATE 25 MG TABLET PO SCH ×2 (08:49→16:15)
[2021-09-23] MEDS: THIAMINE 100 MG TABLET PO SCH ×2 (08:49→16:14)
[2021-09-23] MEDS: LITHIUM CARBONATE 300 MG CAPSULE PO SCH ×2 (08:49→20:20)
[2021-09-23] MEDS: PHENYTOIN SODIUM 100 MG ER CAPSULE PO SCH (08:49)
[2021-09-23] MEDS: FOLIC ACID 1 MG TABLET PO SCH (08:50)
[2021-09-23] MEDS: NALTREXONE HCL 50 MG TABLET PO SCH (08:50)
[2021-09-23] MEDS: MULTIVITAMINS WITH MINERALS, THERAPEUTIC TABLET PO SCH (08:50)
[2021-09-23] MEDS: NICOTINE 21 MG/24 HOUR PATCH TD SCH (08:50)
[2021-09-23] MEDS: CIPROFLOXACIN HCL 500 MG TABLET PO SCH ×2 (08:51→16:14)
[2021-09-23] MEDS: QUEtiapine FUMARATE 100 MG TABLET PO PRN (11:48)
[2021-09-23 16:04] VITALS: BP 106/68
[2021-09-23 16:05] VITALS: BP 106/78
[2021-09-23] MEDS: HydrOXYzine PAMOATE 50 MG CAPSULE PO PRN (18:01)
[2021-09-23 19:48] VITALS: BP 112/88
[2021-09-23] MEDS: PRAZOSIN HCL 2 MG CAPSULE PO SCH (20:20)
[2021-09-23] MEDS: QUEtiapine FUMARATE 200 MG TABLET PO SCH (20:20)
[2021-09-24 03:24] VITALS: BP 105/72
[2021-09-24] MEDS: HydrOXYzine PAMOATE 50 MG CAPSULE PO PRN (03:24)
[2021-09-24] MEDS: MAGNESIUM HYDROXIDE SUSPENSION 30 ML UDCUP PO PRN (03:24)
[2021-09-24] MEDS: NALTREXONE HCL 50 MG TABLET PO SCH (09:25)
[2021-09-24] MEDS: CIPROFLOXACIN HCL 500 MG TABLET PO SCH ×2 (09:25→16:12)
[2021-09-24] MEDS: QUEtiapine FUMARATE 25 MG TABLET PO SCH ×2 (09:25→16:13)
[2021-09-24] MEDS: PHENYTOIN SODIUM 100 MG ER CAPSULE PO SCH (09:25)
[2021-09-24] MEDS: FOLIC ACID 1 MG TABLET PO SCH (09:25)
[2021-09-24] MEDS: LITHIUM CARBONATE 300 MG CAPSULE PO SCH ×2 (09:25→20:35)
[2021-09-24] MEDS: THIAMINE 100 MG TABLET PO SCH ×2 (09:25→16:13)
[2021-09-24] MEDS: MULTIVITAMINS WITH MINERALS, THERAPEUTIC TABLET PO SCH (09:25)
[2021-09-24] MEDS: NICOTINE 21 MG/24 HOUR PATCH TD SCH (09:30)
[2021-09-24 09:51] VITALS: BP 110/67
[2021-09-24] MEDS: QUEtiapine FUMARATE 100 MG TABLET PO PRN ×2 (14:31→19:20)
[2021-09-24 16:08] VITALS: BP 104/72
[2021-09-24 16:09] VITALS: BP 104/72
[2021-09-24] MEDS: QUEtiapine FUMARATE 200 MG TABLET PO SCH (20:35)
[2021-09-24] MEDS: PRAZOSIN HCL 2 MG CAPSULE PO SCH (20:35)
[2021-09-25 08:12] VITALS: BP 90/64
[2021-09-25] MEDS: THIAMINE 100 MG TABLET PO SCH ×2 (08:19→16:07)
[2021-09-25] MEDS: LITHIUM CARBONATE 300 MG CAPSULE PO SCH ×2 (08:19→20:11)
[2021-09-25] MEDS: NALTREXONE HCL 50 MG TABLET PO SCH (08:19)
[2021-09-25] MEDS: FOLIC ACID 1 MG TABLET PO SCH (08:19)
[2021-09-25] MEDS: QUEtiapine FUMARATE 25 MG TABLET PO SCH ×2 (08:19→16:07)
[2021-09-25] MEDS: MULTIVITAMINS WITH MINERALS, THERAPEUTIC TABLET PO SCH (08:19)
[2021-09-25] MEDS: CIPROFLOXACIN HCL 500 MG TABLET PO SCH ×2 (08:19→19:18)
[2021-09-25] MEDS: PHENYTOIN SODIUM 100 MG ER CAPSULE PO SCH (08:20)
[2021-09-25] MEDS: NICOTINE 21 MG/24 HOUR PATCH TD SCH (08:21)
[2021-09-25] MEDS: HALOPERIDOL 5 MG TABLET PO PRN ×3 (08:30→19:03)
[2021-09-25 14:24] LABS: COVID AG,FIA SOURCE NASOPHARYNGEAL
[2021-09-25 16:52] VITALS: BP 99/70
[2021-09-25] MEDS: QUEtiapine FUMARATE 200 MG TABLET PO SCH (20:11)
[2021-09-25] MEDS: PRAZOSIN HCL 2 MG CAPSULE PO SCH (20:11)
[2021-09-25] MEDS ORDERED: HydrOXYzine HCL 50 MG TABLET PO PRN (21:00)
[2021-09-26] MEDS: MULTIVITAMINS WITH MINERALS, THERAPEUTIC TABLET PO SCH (08:33)
[2021-09-26] MEDS: NALTREXONE HCL 50 MG TABLET PO SCH (08:33)
[2021-09-26] MEDS: THIAMINE 100 MG TABLET PO SCH ×2 (08:33→16:07)
[2021-09-26] MEDS: QUEtiapine FUMARATE 100 MG TABLET PO SCH ×2 (08:33→16:07)
[2021-09-26] MEDS: FOLIC ACID 1 MG TABLET PO SCH (08:33)
[2021-09-26] MEDS: LITHIUM CARBONATE 300 MG CAPSULE PO SCH ×2 (08:33→20:05)
[2021-09-26] MEDS: CIPROFLOXACIN HCL 500 MG TABLET PO SCH ×2 (08:34→16:07)
[2021-09-26] MEDS: PHENYTOIN SODIUM 100 MG ER CAPSULE PO SCH (08:34)
[2021-09-26] MEDS: NICOTINE 21 MG/24 HOUR PATCH TD SCH (08:38)
[2021-09-26 08:56] VITALS: BP 98/61
[2021-09-26 11:10] LABS: PHENYTOIN (DILANTIN) 4.8 mcg/mL (10.0-20.0)
[2021-09-26] MEDS: QUEtiapine FUMARATE 100 MG TABLET PO PRN (11:47)
[2021-09-26 12:41] LABS: LITHIUM 0.85 mmol/L (0.60-1.20)
[2021-09-26 16:00] VITALS: BP 101/69
[2021-09-26] MEDS ORDERED: MELA5TAB40 PO (19:16)
[2021-09-26] MEDS ORDERED: PRAZ2 PO (19:16)
[2021-09-26] MEDS ORDERED: QUET200T30 PO (19:16)
[2021-09-26] MEDS ORDERED: LITH300C3 PO (19:16)
[2021-09-26] MEDS ORDERED: NALT50TA PO (19:16)
[2021-09-26] MEDS ORDERED: PHENY100 PO (19:16)
[2021-09-26] MEDS ORDERED: OMEG-108 PO (19:16)
[2021-09-26] MEDS: PRAZOSIN HCL 2 MG CAPSULE PO SCH (20:05)
[2021-09-26] MEDS: QUEtiapine FUMARATE 200 MG TABLET PO SCH (20:05)
[2021-09-27 08:00] VITALS: BP 85/55
[2021-09-27] MEDS: LITHIUM CARBONATE 300 MG CAPSULE PO SCH ×2 (08:33→20:04)
[2021-09-27] MEDS: MULTIVITAMINS WITH MINERALS, THERAPEUTIC TABLET PO SCH (08:33)
[2021-09-27] MEDS: THIAMINE 100 MG TABLET PO SCH ×2 (08:33→16:07)
[2021-09-27] MEDS: FOLIC ACID 1 MG TABLET PO SCH (08:33)
[2021-09-27] MEDS: NALTREXONE HCL 50 MG TABLET PO SCH (08:33)
[2021-09-27] MEDS: QUEtiapine FUMARATE 100 MG TABLET PO SCH ×2 (08:34→16:07)
[2021-09-27] MEDS: NICOTINE 21 MG/24 HOUR PATCH TD SCH (08:34)
[2021-09-27] MEDS: PHENYTOIN SODIUM 100 MG ER CAPSULE PO SCH (08:34)
[2021-09-27 12:16] LABS: AMPHET/METH SCREEN,URINE NEGATIVE (NEGATIVE); BARBITURATE SCREEN, URINE NEGATIVE (NEGATIVE); BENZODIAZEPINES SCREEN,URINE POSITIVE (NEGATIVE); CANNABINOID SCREEN,URINE NEGATIVE (NEGATIVE); COCAINE SCREEN,URINE NEGATIVE (NEGATIVE); METHADONE SCREEN, URINE NEGATIVE (NEGATIVE); OPIATE SCREEN,URINE NEGATIVE (NEGATIVE); PHENCYCLIDINE SCREEN,URINE NEGATIVE (NEGATIVE)
[2021-09-27] MEDS: QUEtiapine FUMARATE 100 MG TABLET PO PRN (12:19)
[2021-09-27 16:58] VITALS: BP 92/67
[2021-09-27] MEDS: QUEtiapine FUMARATE 200 MG TABLET PO SCH (20:05)
[2021-09-27] MEDS: PRAZOSIN HCL 2 MG CAPSULE PO SCH (20:05)
[2021-09-28] MEDS: QUEtiapine FUMARATE 100 MG TABLET PO SCH ×2 (09:01→17:00)
[2021-09-28] MEDS: MULTIVITAMINS WITH MINERALS, THERAPEUTIC TABLET PO SCH (09:01)
[2021-09-28] MEDS: LITHIUM CARBONATE 300 MG CAPSULE PO SCH ×2 (09:01→20:44)
[2021-09-28] MEDS: FOLIC ACID 1 MG TABLET PO SCH (09:01)
[2021-09-28] MEDS: NALTREXONE HCL 50 MG TABLET PO SCH (09:01)
[2021-09-28] MEDS: PHENYTOIN SODIUM 100 MG ER CAPSULE PO SCH ×2 (09:02→17:00)
[2021-09-28] MEDS: THIAMINE 100 MG TABLET PO SCH ×2 (09:02→17:00)
[2021-09-28] MEDS: NICOTINE 21 MG/24 HOUR PATCH TD SCH (09:02)
[2021-09-28] MEDS: QUEtiapine FUMARATE 100 MG TABLET PO PRN (13:20)
[2021-09-28 16:00] VITALS: BP 110/62
[2021-09-28] MEDS: MIRTAZAPINE 15 MG TABLET PO SCH (20:35)
[2021-09-28] MEDS: QUEtiapine FUMARATE 200 MG TABLET PO SCH (20:35)
[2021-09-28] MEDS: PRAZOSIN HCL 2 MG CAPSULE PO SCH (20:35)
[2021-09-29] MEDS: MULTIVITAMINS WITH MINERALS, THERAPEUTIC TABLET PO SCH (08:52)
[2021-09-29] MEDS: FOLIC ACID 1 MG TABLET PO SCH (08:52)
[2021-09-29] MEDS: LITHIUM CARBONATE 300 MG CAPSULE PO SCH ×2 (08:52→20:15)
[2021-09-29] MEDS: NALTREXONE HCL 50 MG TABLET PO SCH (08:52)
[2021-09-29] MEDS: QUEtiapine FUMARATE 100 MG TABLET PO SCH ×2 (08:52→16:10)
[2021-09-29] MEDS: PHENYTOIN SODIUM 100 MG ER CAPSULE PO SCH ×2 (08:53→16:10)
[2021-09-29] MEDS: NICOTINE 21 MG/24 HOUR PATCH TD SCH (08:53)
[2021-09-29] MEDS: THIAMINE 100 MG TABLET PO SCH (08:54)
[2021-09-29 09:08] VITALS: BP 74/49
[2021-09-29] MEDS: QUEtiapine FUMARATE 100 MG TABLET PO PRN (13:16)
[2021-09-29 17:37] VITALS: BP 109/58
[2021-09-29 17:38] VITALS: BP 109/58
[2021-09-29] MEDS: QUEtiapine FUMARATE 200 MG TABLET PO SCH (20:14)
[2021-09-29] MEDS: MIRTAZAPINE 15 MG TABLET PO SCH (20:14)
[2021-09-29] MEDS ORDERED: PRAZOSIN HCL 1 MG CAPSULE PO SCH (21:00)
[2021-09-30 08:00] VITALS: BP 87/48
[2021-09-30] MEDS: LITHIUM CARBONATE 300 MG CAPSULE PO SCH ×2 (08:21→21:34)
[2021-09-30] MEDS: NALTREXONE HCL 50 MG TABLET PO SCH (08:21)
[2021-09-30] MEDS: MULTIVITAMINS WITH MINERALS, THERAPEUTIC TABLET PO SCH (08:21)
[2021-09-30] MEDS: PHENYTOIN SODIUM 100 MG ER CAPSULE PO SCH ×2 (08:21→16:45)
[2021-09-30] MEDS: QUEtiapine FUMARATE 100 MG TABLET PO SCH ×2 (08:21→16:45)
[2021-09-30] MEDS: NICOTINE 21 MG/24 HOUR PATCH TD SCH (08:23)
[2021-09-30] MEDS: QUEtiapine FUMARATE 100 MG TABLET PO PRN (13:09)
[2021-09-30 16:36] VITALS: BP 90/77
[2021-09-30] MEDS: MIRTAZAPINE 15 MG TABLET PO SCH (21:34)
[2021-09-30] MEDS: QUEtiapine FUMARATE 200 MG TABLET PO SCH (21:34)
[2021-10-01 06:07] VITALS: BP 92/65
[2021-10-01 08:00] VITALS: BP 86/49
[2021-10-01] MEDS: MULTIVITAMINS WITH MINERALS, THERAPEUTIC TABLET PO SCH (08:31)
[2021-10-01] MEDS: LITHIUM CARBONATE 300 MG CAPSULE PO SCH ×2 (08:31→20:52)
[2021-10-01] MEDS: NALTREXONE HCL 50 MG TABLET PO SCH (08:31)
[2021-10-01] MEDS: PHENYTOIN SODIUM 100 MG ER CAPSULE PO SCH ×2 (08:32→16:17)
[2021-10-01] MEDS: NICOTINE 21 MG/24 HOUR PATCH TD SCH (08:32)
[2021-10-01] MEDS: QUEtiapine FUMARATE 100 MG TABLET PO SCH ×2 (08:32→16:17)
[2021-10-01] MEDS: MIDODRINE HCL 5 MG TABLET PO PRN (08:42)
[2021-10-01] MEDS: QUEtiapine FUMARATE 100 MG TABLET PO PRN (13:30)
[2021-10-01] MEDS: MAGNESIUM HYDROXIDE SUSPENSION 30 ML UDCUP PO PRN (13:30)
[2021-10-01 17:10] VITALS: BP 101/71
[2021-10-01 20:13] VITALS: BP 97/57
[2021-10-01] MEDS: QUEtiapine FUMARATE 200 MG TABLET PO SCH (20:52)
[2021-10-01] MEDS: MIRTAZAPINE 15 MG TABLET PO SCH (20:52)
[2021-10-02 06:25] VITALS: BP 81/60
[2021-10-02] MEDS: MIDODRINE HCL 5 MG TABLET PO PRN (06:57)
[2021-10-02 08:00] VITALS: BP 90/59
[2021-10-02] MEDS: MULTIVITAMINS WITH MINERALS, THERAPEUTIC TABLET PO SCH (10:58)
[2021-10-02] MEDS: PHENYTOIN SODIUM 100 MG ER CAPSULE PO SCH ×2 (10:58→16:03)
[2021-10-02] MEDS: LITHIUM CARBONATE 300 MG CAPSULE PO SCH ×2 (10:59→20:11)
[2021-10-02] MEDS: QUEtiapine FUMARATE 100 MG TABLET PO SCH ×2 (10:59→16:03)
[2021-10-02] MEDS: NALTREXONE HCL 50 MG TABLET PO SCH (10:59)
[2021-10-02] MEDS: MIDODRINE HCL 5 MG TABLET PO SCH ×3 (11:00→17:00)
[2021-10-02] MEDS: NICOTINE 21 MG/24 HOUR PATCH TD SCH (11:01)
[2021-10-02 14:05] VITALS: BP 107/79
[2021-10-02 16:30] VITALS: BP 110/79
[2021-10-02] MEDS: QUEtiapine FUMARATE 200 MG TABLET PO SCH (20:12)
[2021-10-02] MEDS: MIRTAZAPINE 15 MG TABLET PO SCH (20:12)
[2021-10-03] MEDS: MIDODRINE HCL 5 MG TABLET PO SCH ×2 (08:49→13:30)
[2021-10-03] MEDS: QUEtiapine FUMARATE 100 MG TABLET PO SCH (08:49)
[2021-10-03] MEDS: LITHIUM CARBONATE 300 MG CAPSULE PO SCH (08:49)
[2021-10-03] MEDS: PHENYTOIN SODIUM 100 MG ER CAPSULE PO SCH (08:49)
[2021-10-03] MEDS: MULTIVITAMINS WITH MINERALS, THERAPEUTIC TABLET PO SCH (08:50)
[2021-10-03] MEDS: NALTREXONE HCL 50 MG TABLET PO SCH (08:50)
[2021-10-03] MEDS: NICOTINE 21 MG/24 HOUR PATCH TD SCH (08:51)
[2021-10-03 11:46] LABS: COVID AG,FIA SOURCE NASOPHARYNGEAL
[2021-10-03 13:28] VITALS: BP 101/67
[2021-10-03] MEDS: QUEtiapine FUMARATE 100 MG TABLET PO PRN (13:29)
[2021-10-03] MEDS ORDERED: MIRT-89 PO (15:09)
[2021-10-03] MEDS ORDERED: QUET100T34 PO (15:09)
[2021-10-03] MEDS ORDERED: PHENY100 PO (15:09)
== END 2021-10-03 15:04 | disposition home or self-care (01) | DRG 750 ==
LOC: EMS 21:58 → 3EI 09-19 04:16 → EMS 09-19 04:17 → 3EI 09-24 20:00
PROVIDERS: ADMIT Psychiatry & Neurology Psychiatry; ATTEND Psychiatry & Neurology Psychiatry
DX: F25.1 Schizoaffective disorder, depressive type (principal); I95.9 Hypotension, unspecified; G40.909 Epilepsy, unspecified, not intractable, without status epilepticus; K74.60 Unspecified cirrhosis of liver; F22 Delusional disorders; Z59.02 Unsheltered homelessness; E87.6 Hypokalemia; F43.10 Post-traumatic stress disorder, unspecified; F15.10 Other stimulant abuse, uncomplicated; J44.9 Chronic obstructive pulmonary disease, unspecified; R41.843 Psychomotor deficit; F17.210 Nicotine dependence, cigarettes, uncomplicated; F10.20 Alcohol dependence, uncomplicated; Y90.9 Presence of alcohol in blood, level not specified; F06.30 Mood disorder due to known physiological condition, unspecified; Z20.822 Contact with and (suspected) exposure to COVID-19; F25.0 Schizoaffective disorder, bipolar type; Z28.9 Immunization not carried out for unspecified reason; Z55.9 Problems related to education and literacy, unspecified; Z63.5 Disruption of family by separation and divorce; Z65.3 Problems related to other legal circumstances; Z81.4 Family history of other substance abuse and dependence; Z81.8 Family history of other mental and behavioral disorders; Z88.2 Allergy status to sulfonamides; Z91.14 Patient's other noncompliance with medication regimen; Z91.19 Patient's noncompliance with other medical treatment and regimen
CPT/HCPCS: 80053; 80061; 80178; 80185; 80307; 81001; 83036; 84439; 84443; 85025; 86592; 87086; 90732; 93005; 99285; G0480; J1200; J1630; J2060; J3420

== ENCOUNTER 2022-01-27 21:15 | Inpatient (IN) | payer MEDICAID, OTHER ==
[~2022-01-27] VITALS: Ht 167.6 cm; Wt 54.6 kg
[~2022-01-27 21:15] MED LIST changes: +MELA5TAB40 PO; +MIRT-89 PO; +NALT50TA PO; +OMEG-135 PO; +QUET100T34 PO; -QUET200T PO; +QUET200T30 PO; -VENL150C4 PO
[2022-01-27 22:07] LABS: COVID AG,FIA SOURCE NASAL SWAB
[2022-01-27 22:11] LABS: BASOPHILS % (AUTO) 0.5 % (0.0-2.0); EOSINOPHILS % (AUTO) 2.6 % (1.0-6.0); HEMATOCRIT 39.1 % (36-46); HEMOGLOBIN 13.1 g/dL (12.0-16.0); LYMPHOCYTES # (AUTO) 1.5 K/uL (1.0-4.8); LYMPHOCYTES % (AUTO) 18.6 % (22.0-44.0); MEAN CORPUSCULAR HEMOGLOBIN 30.8 pg (26.0-34.0); MEAN CORPUSCULAR HGB CONC 33.5 G/dL (31.0-37.0); MEAN CORPUSCULAR VOLUME 92 fL (80-100); MONOCYTES # (AUTO) 0.7 K/uL (0.1-1.0); MONOCYTES % (AUTO) 9.2 % (2.0-9.0); NEUTROPHILS # (AUTO) 5.4 K/uL (1.8-7.7); NEUTROPHILS % (AUTO) 69.1 % (40.0-70.0); PLATELET COUNT (AUTO) 148 K/uL (150-450); RED BLOOD CELL COUNT(AUTO) 4.27 MIL/uL (4.00-5.20)
[2022-01-27 22:17] LABS: ANION GAP 14 mmol/L (8-16); CALCIUM, TOTAL 9.5 mg/dL (8.8-10.5); CARBON DIOXIDE 23 mmol/L (22-29); CHLORIDE 105 mmol/L (98-107); GLUCOSE,RANDOM 91 mg/dL (70-110); POTASSIUM 4.1 mmol/L (3.5-5.1); SODIUM SERUM 142 mmol/L (136-145); UREA NITROGEN, BLOOD 21 mg/dL (7-18)
[2022-01-27 22:18] LABS: GLOMERULAR FILTR. RATE CALC > 60 mL/min (>60)
[2022-01-27 22:23] LABS: ALANINE AMINOTRANSFERASE 201 U/L (12-78); ALBUMIN 3.7 g/dL (3.4-5.0); ALKALINE PHOSPHATASE 103 U/L (46-116); ASPARTATE AMINOTRANSFERASE 205 U/L (15-37); BILIRUBIN,TOTAL 0.2 mg/dL (0.1-1.0)
[2022-01-27 22:25] LABS: AMPHET/METH SCREEN,URINE POSITIVE (NEGATIVE); BARBITURATE SCREEN, URINE NEGATIVE (NEGATIVE); BENZODIAZEPINES SCREEN,URINE POSITIVE (NEGATIVE); CANNABINOID SCREEN,URINE NEGATIVE (NEGATIVE); COCAINE SCREEN,URINE NEGATIVE (NEGATIVE); METHADONE SCREEN, URINE NEGATIVE (NEGATIVE); OPIATE SCREEN,URINE NEGATIVE (NEGATIVE)
[2022-01-27 22:26] LABS: PHENCYCLIDINE SCREEN,URINE NEGATIVE (NEGATIVE)
[2022-01-27] MEDS ORDERED: QUEtiapine FUMARATE 25 MG TABLET PO ONE (22:45)
[2022-01-27] MEDS ORDERED: CALCIUM CARBONATE 500 MG CHEWABLE TABLET CHEW ONE (23:15)
[2022-01-28] MEDS ORDERED: PB/HYOSCY/ATR/SCOP/LIDO/MAALOX 55 ML BOTTLE PO ONE (03:45)
[2022-01-28] MEDS ORDERED: ZOLPIDEM TARTRATE 10 MG TABLET PO PRN (06:00)
[2022-01-28 08:50] VITALS: BP 120/84
[2022-01-28] MEDS: LORazepam 1 MG TABLET PO PRN (08:58)
[2022-01-28] MEDS: PHENYTOIN SODIUM 100 MG ER CAPSULE PO SCH (16:44)
[2022-01-28 17:18] VITALS: BP 120/84
[2022-01-28] MEDS: QUEtiapine FUMARATE 100 MG TABLET PO PRN ×3 (19:33→23:34)
[2022-01-29 08:57] VITALS: BP 108/67
[2022-01-29] MEDS: OLANZapine 5 MG RAPDIS TABLET PO SCH ×2 (09:23→16:08)
[2022-01-29] MEDS: PHENYTOIN SODIUM 100 MG ER CAPSULE PO SCH ×2 (09:23→16:09)
[2022-01-29] MEDS: FLUoxetine HCL 20 MG CAPSULE PO SCH (09:25)
[2022-01-29] MEDS ORDERED: GuaiFENesin/D-METHORPHAN [SUGAR-FREE] 200-20MG/10 ML SYRUP UDCUP PO PRN (11:15)
[2022-01-29] MEDS ORDERED: PROMETHAZINE HCL 25 MG TABLET PO PRN (11:15)
[2022-01-29] MEDS ORDERED: HydrOXYzine PAMOATE 50 MG CAPSULE PO PRN (11:15)
[2022-01-29] MEDS ORDERED: OLANZapine 5 MG RAPDIS TABLET PO PRN (11:15)
[2022-01-29] MEDS ORDERED: MAGNESIUM HYDROXIDE SUSPENSION 30 ML UDCUP PO PRN (11:15)
[2022-01-29] MEDS ORDERED: MAG HYDROX/AL HYDROX/SIMETH ES 30 ML SUSPENSION UDCUP PO PRN (11:15)
[2022-01-29] MEDS ORDERED: LOPERAMIDE HCL 2 MG CAPSULE PO PRN (11:15)
[2022-01-29] MEDS: LORazepam 1 MG TABLET PO PRN (12:35)
[2022-01-29] MEDS: QUEtiapine FUMARATE 25 MG TABLET PO SCH (16:08)
[2022-01-29] MEDS: LITHIUM CARBONATE 300 MG CAPSULE PO SCH (16:08)
[2022-01-29] MEDS: THIAMINE 100 MG TABLET PO SCH (16:10)
[2022-01-29] MEDS: MELATONIN 5 MG TABLET PO SCH (20:07)
[2022-01-29] MEDS: MIRTAZAPINE 15 MG TABLET PO SCH (20:07)
[2022-01-29] MEDS: PRAZOSIN HCL 1 MG CAPSULE PO SCH (20:08)
[2022-01-29 20:13] VITALS: BP 119/71
[2022-01-29] MEDS ORDERED: QUEtiapine FUMARATE 200 MG TABLET PO SCH (21:00)
[2022-01-30 06:36] VITALS: BP 109/64
[2022-01-30] MEDS: LORazepam 1 MG TABLET PO PRN ×2 (06:36→14:42)
[2022-01-30 07:06] LABS: HEMOGLOBIN A1C 4.6 % (3.8-5.6)
[2022-01-30 07:23] LABS: CHOL/HDL RATIO 2.9 (3.9-5.7); FREE T4 (FREE THYROXINE) 0.56 ng/dL (0.76-1.46); THYROID STIMULATING HORMONE 1.74 uIU/mL (0.36-3.74)
[2022-01-30 08:00] VITALS: BP 108/75
[2022-01-30] MEDS: MULTIVITAMINS WITH MINERALS, THERAPEUTIC TABLET PO SCH (10:07)
[2022-01-30] MEDS: FLUoxetine HCL 20 MG CAPSULE PO SCH (10:08)
[2022-01-30] MEDS: OMEGA-3/DHA/EPA/FISH OIL 1,000 MG CAPSULE PO SCH (10:08)
[2022-01-30] MEDS: PHENYTOIN SODIUM 100 MG ER CAPSULE PO SCH ×2 (10:08→16:24)
[2022-01-30] MEDS: QUEtiapine FUMARATE 25 MG TABLET PO SCH ×2 (10:09→16:24)
[2022-01-30] MEDS: NALTREXONE HCL 50 MG TABLET PO SCH (10:09)
[2022-01-30] MEDS: FOLIC ACID 1 MG TABLET PO SCH (10:09)
[2022-01-30] MEDS: LITHIUM CARBONATE 300 MG CAPSULE PO SCH ×2 (10:09→16:24)
[2022-01-30] MEDS: OLANZapine 5 MG RAPDIS TABLET PO SCH ×2 (10:12→16:28)
[2022-01-30] MEDS: THIAMINE 100 MG TABLET PO SCH ×2 (10:12→16:24)
[2022-01-30] MEDS ORDERED: QUEtiapine FUMARATE 25 MG TABLET PO SCH (17:00)
[2022-01-30] MEDS: PRAZOSIN HCL 1 MG CAPSULE PO SCH (20:37)
[2022-01-30] MEDS: MELATONIN 5 MG TABLET PO SCH (20:38)
[2022-01-30] MEDS: MIRTAZAPINE 15 MG TABLET PO SCH (20:39)
[2022-01-30] MEDS: QUEtiapine FUMARATE 200 MG TABLET PO SCH (20:39)
[2022-01-31 07:15] LABS: LITHIUM 0.36 mmol/L (0.60-1.20)
[2022-01-31 08:30] VITALS: BP 122/70
[2022-01-31 08:33] LABS: PHENYTOIN (DILANTIN) 7.5 mcg/mL (10.0-20.0)
[2022-01-31] MEDS: OMEGA-3/DHA/EPA/FISH OIL 1,000 MG CAPSULE PO SCH (09:19)
[2022-01-31] MEDS: MULTIVITAMINS WITH MINERALS, THERAPEUTIC TABLET PO SCH (09:19)
[2022-01-31] MEDS: OLANZapine 5 MG RAPDIS TABLET PO SCH ×2 (09:20→17:28)
[2022-01-31] MEDS: QUEtiapine FUMARATE 25 MG TABLET PO SCH ×2 (09:20→13:15)
[2022-01-31] MEDS: PHENYTOIN SODIUM 100 MG ER CAPSULE PO SCH ×2 (09:20→17:25)
[2022-01-31] MEDS: NALTREXONE HCL 50 MG TABLET PO SCH (09:20)
[2022-01-31] MEDS: FOLIC ACID 1 MG TABLET PO SCH (09:20)
[2022-01-31] MEDS: LITHIUM CARBONATE 300 MG CAPSULE PO SCH ×2 (09:20→17:28)
[2022-01-31] MEDS: FLUoxetine HCL 20 MG CAPSULE PO SCH (09:20)
[2022-01-31] MEDS: THIAMINE 100 MG TABLET PO SCH ×2 (09:21→17:25)
[2022-01-31] MEDS: QUEtiapine FUMARATE 100 MG TABLET PO SCH (17:28)
[2022-01-31] MEDS ORDERED: FLUCONAZOLE 200 MG TABLET PO ONE (17:45)
[2022-01-31] MEDS: MIRTAZAPINE 15 MG TABLET PO SCH (20:57)
[2022-01-31] MEDS: MELATONIN 5 MG TABLET PO SCH (20:57)
[2022-01-31] MEDS: PRAZOSIN HCL 1 MG CAPSULE PO SCH (20:57)
[2022-01-31] MEDS: QUEtiapine FUMARATE 200 MG TABLET PO SCH (20:57)
[2022-02-01 08:30] VITALS: BP 98/61
[2022-02-01] MEDS: MULTIVITAMINS WITH MINERALS, THERAPEUTIC TABLET PO SCH (08:59)
[2022-02-01] MEDS: FOLIC ACID 1 MG TABLET PO SCH (08:59)
[2022-02-01] MEDS: PHENYTOIN SODIUM 100 MG ER CAPSULE PO SCH ×3 (08:59→17:05)
[2022-02-01] MEDS: THIAMINE 100 MG TABLET PO SCH ×2 (09:01→16:32)
[2022-02-01] MEDS: FLUoxetine HCL 20 MG CAPSULE PO SCH (09:01)
[2022-02-01] MEDS: LITHIUM CARBONATE 300 MG CAPSULE PO SCH ×3 (09:01→16:52)
[2022-02-01] MEDS: NALTREXONE HCL 50 MG TABLET PO SCH (09:01)
[2022-02-01] MEDS: OLANZapine 5 MG RAPDIS TABLET PO SCH ×2 (09:01→16:33)
[2022-02-01] MEDS: OMEGA-3/DHA/EPA/FISH OIL 1,000 MG CAPSULE PO SCH (09:01)
[2022-02-01] MEDS: QUEtiapine FUMARATE 100 MG TABLET PO SCH ×3 (09:02→16:32)
[2022-02-01 16:33] VITALS: BP 99/65
[2022-02-01] MEDS: QUEtiapine FUMARATE 200 MG TABLET PO SCH (20:09)
[2022-02-01] MEDS: MELATONIN 5 MG TABLET PO SCH (20:10)
[2022-02-01] MEDS: MIRTAZAPINE 15 MG TABLET PO SCH (20:10)
[2022-02-01] MEDS: PRAZOSIN HCL 1 MG CAPSULE PO SCH (20:10)
[2022-02-02] VITALS (7 sets, daily range): BP systolic 90–127; BP diastolic 54–88
[2022-02-02] MEDS: LORazepam 1 MG TABLET PO PRN ×2 (05:34→12:28)
[2022-02-02] MEDS: PHENYTOIN SODIUM 100 MG ER CAPSULE PO SCH ×2 (08:33→16:47)
[2022-02-02] MEDS: THIAMINE 100 MG TABLET PO SCH ×2 (08:34→16:47)
[2022-02-02] MEDS: OLANZapine 5 MG RAPDIS TABLET PO SCH ×2 (08:34→16:47)
[2022-02-02] MEDS: OMEGA-3/DHA/EPA/FISH OIL 1,000 MG CAPSULE PO SCH (08:34)
[2022-02-02] MEDS: LITHIUM CARBONATE 300 MG CAPSULE PO SCH ×3 (08:35→16:48)
[2022-02-02] MEDS: QUEtiapine FUMARATE 100 MG TABLET PO SCH ×2 (08:35→12:17)
[2022-02-02] MEDS: NALTREXONE HCL 50 MG TABLET PO SCH (08:35)
[2022-02-02] MEDS: MULTIVITAMINS WITH MINERALS, THERAPEUTIC TABLET PO SCH (08:35)
[2022-02-02] MEDS: FLUoxetine HCL 20 MG CAPSULE PO SCH (08:35)
[2022-02-02] MEDS: FOLIC ACID 1 MG TABLET PO SCH (08:35)
[2022-02-02] MEDS: OMEPRAZOLE 20 MG CAPSULE PO SCH (08:35)
[2022-02-02] MEDS: QUEtiapine FUMARATE 200 MG TABLET PO SCH ×2 (16:51→21:00)
[2022-02-02] MEDS: MIRTAZAPINE 15 MG TABLET PO SCH (21:00)
[2022-02-02] MEDS: PRAZOSIN HCL 1 MG CAPSULE PO SCH (21:00)
[2022-02-02] MEDS: MELATONIN 5 MG TABLET PO SCH (21:00)
[2022-02-03] MEDS: OLANZapine 5 MG RAPDIS TABLET PO SCH ×2 (09:32→16:48)
[2022-02-03] MEDS: MULTIVITAMINS WITH MINERALS, THERAPEUTIC TABLET PO SCH (09:32)
[2022-02-03] MEDS: QUEtiapine FUMARATE 200 MG TABLET PO SCH ×4 (09:32→23:36)
[2022-02-03] MEDS: PHENYTOIN SODIUM 100 MG ER CAPSULE PO SCH ×2 (09:32→16:47)
[2022-02-03] MEDS: FOLIC ACID 1 MG TABLET PO SCH (09:32)
[2022-02-03] MEDS: OMEPRAZOLE 20 MG CAPSULE PO SCH (09:32)
[2022-02-03] MEDS: THIAMINE 100 MG TABLET PO SCH ×2 (09:32→16:47)
[2022-02-03] MEDS: LITHIUM CARBONATE 300 MG CAPSULE PO SCH ×3 (09:32→16:47)
[2022-02-03] MEDS: OMEGA-3/DHA/EPA/FISH OIL 1,000 MG CAPSULE PO SCH (09:32)
[2022-02-03] MEDS: NALTREXONE HCL 50 MG TABLET PO SCH (09:32)
[2022-02-03] MEDS: FLUoxetine HCL 20 MG CAPSULE PO SCH (09:32)
[2022-02-03] MEDS ORDERED: DiphenhydrAMINE HCL 50 MG/ML VIAL ONE (11:43)
[2022-02-03] MEDS ORDERED: LORazepam 2 MG/ML VIAL ONE (11:43)
[2022-02-03] MEDS ORDERED: HALOPERIDOL LACTATE 5 MG/ML VIAL ONE (11:43)
[2022-02-03] MEDS ORDERED: DiphenhydrAMINE HCL 50 MG/ML VIAL IM ONE ×3 (11:45→12:00)
[2022-02-03] MEDS ORDERED: HALOPERIDOL LACTATE 5 MG/ML VIAL IM ONE ×3 (11:45→12:00)
[2022-02-03] MEDS ORDERED: LORazepam 2 MG/ML VIAL IM ONE ×3 (11:45→12:00)
[2022-02-03] MEDS: NICOTINE 21 MG/24 HOUR PATCH TD SCH (12:10)
[2022-02-03] MEDS: MELATONIN 5 MG TABLET PO SCH ×2 (21:00→23:37)
[2022-02-03] MEDS: PRAZOSIN HCL 1 MG CAPSULE PO SCH ×2 (21:00→23:36)
[2022-02-03] MEDS: MIRTAZAPINE 15 MG TABLET PO SCH ×2 (21:00→23:37)
[2022-02-04 06:47] LABS: COVID AG,FIA SOURCE NASAL SWAB
[2022-02-04] MEDS: MULTIVITAMINS WITH MINERALS, THERAPEUTIC TABLET PO SCH (08:56)
[2022-02-04] MEDS: LITHIUM CARBONATE 300 MG CAPSULE PO SCH ×3 (08:56→16:24)
[2022-02-04] MEDS: THIAMINE 100 MG TABLET PO SCH ×2 (08:56→16:24)
[2022-02-04] MEDS: OMEGA-3/DHA/EPA/FISH OIL 1,000 MG CAPSULE PO SCH (08:56)
[2022-02-04] MEDS: OLANZapine 5 MG RAPDIS TABLET PO SCH ×2 (08:57→16:24)
[2022-02-04] MEDS: FLUoxetine HCL 20 MG CAPSULE PO SCH (08:57)
[2022-02-04] MEDS: FOLIC ACID 1 MG TABLET PO SCH (08:57)
[2022-02-04] MEDS: OMEPRAZOLE 20 MG CAPSULE PO SCH (08:58)
[2022-02-04] MEDS: NICOTINE 21 MG/24 HOUR PATCH TD SCH (08:58)
[2022-02-04] MEDS: NALTREXONE HCL 50 MG TABLET PO SCH (08:58)
[2022-02-04] MEDS: PHENYTOIN SODIUM 100 MG ER CAPSULE PO SCH ×2 (08:58→16:24)
[2022-02-04] MEDS: QUEtiapine FUMARATE 200 MG TABLET PO SCH ×3 (08:58→21:23)
[2022-02-04] MEDS: LORazepam 1 MG TABLET PO PRN (13:18)
[2022-02-04 17:59] VITALS: BP 124/81
[2022-02-04] MEDS: ACETAMINOPHEN 325 MG TABLET PO PRN (17:59)
[2022-02-04] MEDS: MIRTAZAPINE 15 MG TABLET PO SCH (21:23)
[2022-02-04] MEDS: MELATONIN 5 MG TABLET PO SCH (21:23)
[2022-02-04] MEDS: PRAZOSIN HCL 1 MG CAPSULE PO SCH (21:23)
[2022-02-05 00:10] VITALS: BP 95/61
[2022-02-05] MEDS: FOLIC ACID 1 MG TABLET PO SCH (08:29)
[2022-02-05] MEDS: OMEGA-3/DHA/EPA/FISH OIL 1,000 MG CAPSULE PO SCH (08:29)
[2022-02-05] MEDS: MULTIVITAMINS WITH MINERALS, THERAPEUTIC TABLET PO SCH (08:29)
[2022-02-05] MEDS: OLANZapine 5 MG RAPDIS TABLET PO SCH ×2 (08:29→16:08)
[2022-02-05] MEDS: OMEPRAZOLE 20 MG CAPSULE PO SCH (08:29)
[2022-02-05] MEDS: NALTREXONE HCL 50 MG TABLET PO SCH (08:29)
[2022-02-05] MEDS: QUEtiapine FUMARATE 200 MG TABLET PO SCH ×2 (08:29→16:08)
[2022-02-05] MEDS: FLUoxetine HCL 20 MG CAPSULE PO SCH (08:30)
[2022-02-05] MEDS: PHENYTOIN SODIUM 100 MG ER CAPSULE PO SCH ×2 (08:30→16:08)
[2022-02-05] MEDS: THIAMINE 100 MG TABLET PO SCH ×2 (08:30→16:08)
[2022-02-05] MEDS: LITHIUM CARBONATE 300 MG CAPSULE PO SCH ×3 (08:30→16:08)
[2022-02-05 10:03] VITALS: BP 101/63
[2022-02-05] MEDS: NICOTINE 21 MG/24 HOUR PATCH TD SCH (10:05)
[2022-02-05] MEDS: LORazepam 1 MG TABLET PO PRN (10:05)
[2022-02-05 16:00] VITALS: BP 109/70
[2022-02-05] MEDS ORDERED: OMEG-135 PO (18:59)
[2022-02-05] MEDS: PRAZOSIN HCL 1 MG CAPSULE PO SCH (20:18)
[2022-02-05] MEDS: MELATONIN 5 MG TABLET PO SCH (20:18)
[2022-02-06 06:55] VITALS: BP 108/69
[2022-02-06] MEDS: LORazepam 0.5 MG TABLET PO PRN ×2 (07:04→10:30)
[2022-02-06 07:19] LABS: LITHIUM 0.69 mmol/L (0.60-1.20)
[2022-02-06 07:24] LABS: PHENYTOIN (DILANTIN) 39.2 mcg/mL (10.0-20.0)
[2022-02-06 08:00] VITALS: BP 111/67
[2022-02-06] MEDS: OLANZapine 5 MG RAPDIS TABLET PO SCH ×2 (08:13→16:07)
[2022-02-06] MEDS: OMEPRAZOLE 20 MG CAPSULE PO SCH (08:13)
[2022-02-06] MEDS: OMEGA-3/DHA/EPA/FISH OIL 1,000 MG CAPSULE PO SCH (08:13)
[2022-02-06] MEDS: LITHIUM CARBONATE 300 MG CAPSULE PO SCH ×3 (08:13→16:07)
[2022-02-06] MEDS: FOLIC ACID 1 MG TABLET PO SCH (08:14)
[2022-02-06] MEDS: MULTIVITAMINS WITH MINERALS, THERAPEUTIC TABLET PO SCH (08:14)
[2022-02-06] MEDS: QUEtiapine FUMARATE 100 MG TABLET PO PRN ×2 (08:14→13:09)
[2022-02-06] MEDS: THIAMINE 100 MG TABLET PO SCH ×2 (08:14→16:07)
[2022-02-06] MEDS: NALTREXONE HCL 50 MG TABLET PO SCH (08:16)
[2022-02-06] MEDS: NICOTINE 21 MG/24 HOUR PATCH TD SCH (08:20)
[2022-02-06 10:25] VITALS: BP 120/80
[2022-02-06 16:00] VITALS: BP 106/73
[2022-02-06] MEDS ORDERED: ESZOPICLONE 3 MG TABLET PO PRN (17:30)
[2022-02-06] MEDS: PRAZOSIN HCL 1 MG CAPSULE PO SCH (20:08)
[2022-02-06] MEDS: MELATONIN 5 MG TABLET PO SCH (20:09)
[2022-02-06] MEDS ORDERED: QUEtiapine FUMARATE 100 MG TABLET PO SCH (21:00)
[2022-02-07] MEDS: LORazepam 0.5 MG TABLET PO PRN ×2 (06:38→12:36)
[2022-02-07 08:00] VITALS: BP 103/66
[2022-02-07] MEDS: OMEPRAZOLE 20 MG CAPSULE PO SCH (09:11)
[2022-02-07] MEDS: OMEGA-3/DHA/EPA/FISH OIL 1,000 MG CAPSULE PO SCH (09:11)
[2022-02-07] MEDS: OLANZapine 5 MG RAPDIS TABLET PO SCH ×2 (09:11→15:59)
[2022-02-07] MEDS: FOLIC ACID 1 MG TABLET PO SCH (09:12)
[2022-02-07] MEDS: THIAMINE 100 MG TABLET PO SCH ×2 (09:12→15:59)
[2022-02-07] MEDS: NALTREXONE HCL 50 MG TABLET PO SCH (09:12)
[2022-02-07] MEDS: MULTIVITAMINS WITH MINERALS, THERAPEUTIC TABLET PO SCH (09:12)
[2022-02-07] MEDS: NICOTINE 21 MG/24 HOUR PATCH TD SCH (09:13)
[2022-02-07] MEDS: QUEtiapine FUMARATE 100 MG TABLET PO PRN ×2 (09:15→17:48)
[2022-02-07 16:00] VITALS: BP 103/68
[2022-02-07 16:51] VITALS: BP 103/68
[2022-02-07] MEDS: QUEtiapine FUMARATE 100 MG TABLET PO SCH (20:48)
[2022-02-07] MEDS: PRAZOSIN HCL 1 MG CAPSULE PO SCH (20:48)
[2022-02-07] MEDS: MELATONIN 5 MG TABLET PO SCH (20:48)
[2022-02-08] MEDS: LORazepam 0.5 MG TABLET PO PRN ×3 (03:09→15:49)
[2022-02-08] MEDS: NALTREXONE HCL 50 MG TABLET PO SCH (09:19)
[2022-02-08] MEDS: OMEPRAZOLE 20 MG CAPSULE PO SCH (09:19)
[2022-02-08] MEDS: OMEGA-3/DHA/EPA/FISH OIL 1,000 MG CAPSULE PO SCH (09:19)
[2022-02-08] MEDS: FOLIC ACID 1 MG TABLET PO SCH (09:19)
[2022-02-08] MEDS: MULTIVITAMINS WITH MINERALS, THERAPEUTIC TABLET PO SCH (09:19)
[2022-02-08] MEDS: THIAMINE 100 MG TABLET PO SCH (09:19)
[2022-02-08] MEDS: NICOTINE 21 MG/24 HOUR PATCH TD SCH (09:20)
[2022-02-08] MEDS: QUEtiapine FUMARATE 100 MG TABLET PO PRN ×2 (14:08→18:50)
[2022-02-08 16:57] VITALS: BP 130/77
[2022-02-08] MEDS: PRAZOSIN HCL 1 MG CAPSULE PO SCH (20:27)
[2022-02-08] MEDS: MELATONIN 5 MG TABLET PO SCH (20:27)
[2022-02-08] MEDS: QUEtiapine FUMARATE 100 MG TABLET PO SCH (20:28)
[2022-02-09] MEDS: LORazepam 0.5 MG TABLET PO PRN ×3 (02:18→15:55)
[2022-02-09] MEDS: ACETAMINOPHEN 325 MG TABLET PO PRN ×2 (02:19→07:52)
[2022-02-09 02:20] VITALS: BP 100/65
[2022-02-09 07:52] VITALS: BP 109/74
[2022-02-09] MEDS: OMEPRAZOLE 20 MG CAPSULE PO SCH (07:52)
[2022-02-09] MEDS: NALTREXONE HCL 50 MG TABLET PO SCH (07:52)
[2022-02-09] MEDS: OMEGA-3/DHA/EPA/FISH OIL 1,000 MG CAPSULE PO SCH (07:52)
[2022-02-09] MEDS: NICOTINE 21 MG/24 HOUR PATCH TD SCH (07:54)
[2022-02-09] MEDS: MULTIVITAMINS WITH MINERALS, THERAPEUTIC TABLET PO SCH (07:55)
[2022-02-09 09:54] VITALS: BP 109/74
[2022-02-09] MEDS: PHENYTOIN 50 MG CHEWABLE TABLET PO SCH ×2 (13:24→15:54)
[2022-02-09] MEDS: DIVALPROEX SODIUM 500 MG ER TABLET PO SCH (15:53)
[2022-02-09 16:25] VITALS: BP 108/71
[2022-02-09] MEDS: GABAPENTIN 100 MG CAPSULE PO SCH ×2 (17:16→20:07)
[2022-02-09] MEDS: QUEtiapine FUMARATE 100 MG TABLET PO PRN (18:39)
[2022-02-09] MEDS: PRAZOSIN HCL 2 MG CAPSULE PO SCH (20:06)
[2022-02-09] MEDS: MELATONIN 5 MG TABLET PO SCH (20:07)
[2022-02-09] MEDS: QUEtiapine FUMARATE 100 MG TABLET PO SCH (20:07)
[2022-02-10] MEDS: QUEtiapine FUMARATE 100 MG TABLET PO PRN ×4 (02:04→18:34)
[2022-02-10] MEDS: MULTIVITAMINS WITH MINERALS, THERAPEUTIC TABLET PO SCH (08:50)
[2022-02-10] MEDS: NALTREXONE HCL 50 MG TABLET PO SCH (08:50)
[2022-02-10] MEDS: OMEGA-3/DHA/EPA/FISH OIL 1,000 MG CAPSULE PO SCH (08:50)
[2022-02-10] MEDS: DIVALPROEX SODIUM 500 MG ER TABLET PO SCH ×2 (08:50→16:14)
[2022-02-10] MEDS: OMEPRAZOLE 20 MG CAPSULE PO SCH (08:50)
[2022-02-10] MEDS: PHENYTOIN SODIUM 100 MG ER CAPSULE PO SCH ×3 (08:50→16:15)
[2022-02-10] MEDS: GABAPENTIN 100 MG CAPSULE PO SCH ×4 (08:50→20:22)
[2022-02-10] MEDS: NICOTINE 21 MG/24 HOUR PATCH TD SCH (08:51)
[2022-02-10 09:28] VITALS: BP 101/77
[2022-02-10 14:21] VITALS: BP 106/72
[2022-02-10] MEDS: ACETAMINOPHEN 325 MG TABLET PO PRN ×2 (14:21→20:40)
[2022-02-10 16:29] VITALS: BP 92/58
[2022-02-10] MEDS: QUEtiapine FUMARATE 100 MG TABLET PO SCH (20:22)
[2022-02-10] MEDS: MELATONIN 5 MG TABLET PO SCH (20:23)
[2022-02-10 20:38] VITALS: BP 115/78
[2022-02-10] MEDS: PRAZOSIN HCL 2 MG CAPSULE PO SCH (21:00)
[2022-02-10 22:03] VITALS: BP 90/60
[2022-02-11 06:57] LABS: COVID AG,FIA SOURCE NASAL SWAB
[2022-02-11] MEDS: QUEtiapine FUMARATE 100 MG TABLET PO PRN ×2 (07:51→12:55)
[2022-02-11] MEDS: MULTIVITAMINS WITH MINERALS, THERAPEUTIC TABLET PO SCH (09:31)
[2022-02-11] MEDS: OMEPRAZOLE 20 MG CAPSULE PO SCH (09:31)
[2022-02-11] MEDS: OMEGA-3/DHA/EPA/FISH OIL 1,000 MG CAPSULE PO SCH (09:31)
[2022-02-11] MEDS: GABAPENTIN 100 MG CAPSULE PO SCH ×4 (09:31→20:38)
[2022-02-11] MEDS: NALTREXONE HCL 50 MG TABLET PO SCH (09:31)
[2022-02-11] MEDS: PHENYTOIN SODIUM 100 MG ER CAPSULE PO SCH ×3 (09:32→16:28)
[2022-02-11] MEDS: DIVALPROEX SODIUM 500 MG ER TABLET PO SCH ×2 (09:32→16:28)
[2022-02-11] MEDS: NICOTINE 21 MG/24 HOUR PATCH TD SCH (09:32)
[2022-02-11 09:47] VITALS: BP 105/71
[2022-02-11 16:14] VITALS: BP 95/67
[2022-02-11] MEDS: HALOPERIDOL 5 MG TABLET PO PRN (18:00)
[2022-02-11 20:16] VITALS: BP 112/67
[2022-02-11] MEDS: QUEtiapine FUMARATE 100 MG TABLET PO SCH (20:38)
[2022-02-11] MEDS: MELATONIN 5 MG TABLET PO SCH (20:38)
[2022-02-11] MEDS: PRAZOSIN HCL 2 MG CAPSULE PO SCH (20:38)
[2022-02-12 08:00] VITALS: BP 89/55
[2022-02-12] MEDS: OMEGA-3/DHA/EPA/FISH OIL 1,000 MG CAPSULE PO SCH (08:34)
[2022-02-12] MEDS: PHENYTOIN SODIUM 100 MG ER CAPSULE PO SCH ×3 (08:34→17:07)
[2022-02-12] MEDS: DIVALPROEX SODIUM 500 MG ER TABLET PO SCH ×2 (08:34→17:07)
[2022-02-12] MEDS: NALTREXONE HCL 50 MG TABLET PO SCH (08:34)
[2022-02-12] MEDS: OMEPRAZOLE 20 MG CAPSULE PO SCH (08:34)
[2022-02-12] MEDS: GABAPENTIN 100 MG CAPSULE PO SCH ×3 (08:34→17:07)
[2022-02-12] MEDS: MULTIVITAMINS WITH MINERALS, THERAPEUTIC TABLET PO SCH (08:34)
[2022-02-12] MEDS: NICOTINE 21 MG/24 HOUR PATCH TD SCH (08:34)
[2022-02-12] MEDS: HALOPERIDOL 5 MG TABLET PO PRN ×2 (09:06→13:26)
[2022-02-12 16:00] VITALS: BP 99/69
[2022-02-12] MEDS: QUEtiapine FUMARATE 200 MG TABLET PO SCH (20:19)
[2022-02-12] MEDS: GABAPENTIN 300 MG CAPSULE PO SCH (20:19)
[2022-02-12] MEDS: MELATONIN 5 MG TABLET PO SCH (20:20)
[2022-02-12] MEDS: PRAZOSIN HCL 2 MG CAPSULE PO SCH (20:20)
[2022-02-13] MEDS: DIVALPROEX SODIUM 500 MG ER TABLET PO SCH ×2 (08:55→16:22)
[2022-02-13] MEDS: NALTREXONE HCL 50 MG TABLET PO SCH (08:55)
[2022-02-13] MEDS: OMEPRAZOLE 20 MG CAPSULE PO SCH (08:55)
[2022-02-13] MEDS: OMEGA-3/DHA/EPA/FISH OIL 1,000 MG CAPSULE PO SCH (08:55)
[2022-02-13] MEDS: PHENYTOIN SODIUM 100 MG ER CAPSULE PO SCH ×3 (08:55→16:22)
[2022-02-13] MEDS: GABAPENTIN 300 MG CAPSULE PO SCH ×4 (08:55→20:16)
[2022-02-13] MEDS: MULTIVITAMINS WITH MINERALS, THERAPEUTIC TABLET PO SCH (08:56)
[2022-02-13] MEDS: QUEtiapine FUMARATE 25 MG TABLET PO SCH ×3 (08:56→16:22)
[2022-02-13] MEDS: NICOTINE 21 MG/24 HOUR PATCH TD SCH (09:33)
[2022-02-13 16:32] VITALS: BP 99/71
[2022-02-13] MEDS: QUEtiapine FUMARATE 200 MG TABLET PO SCH (20:16)
[2022-02-13] MEDS: MELATONIN 5 MG TABLET PO SCH (20:16)
[2022-02-13 20:19] VITALS: BP 100/58
[2022-02-13] MEDS: PRAZOSIN HCL 2 MG CAPSULE PO SCH (20:21)
[2022-02-14 08:00] VITALS: BP 105/69
[2022-02-14] MEDS: PHENYTOIN SODIUM 100 MG ER CAPSULE PO SCH ×3 (09:24→16:33)
[2022-02-14] MEDS: GABAPENTIN 300 MG CAPSULE PO SCH ×4 (09:24→20:23)
[2022-02-14] MEDS: NALTREXONE HCL 50 MG TABLET PO SCH (09:24)
[2022-02-14] MEDS: MULTIVITAMINS WITH MINERALS, THERAPEUTIC TABLET PO SCH (09:24)
[2022-02-14] MEDS: DIVALPROEX SODIUM 500 MG ER TABLET PO SCH ×2 (09:24→16:33)
[2022-02-14] MEDS: OMEGA-3/DHA/EPA/FISH OIL 1,000 MG CAPSULE PO SCH (09:24)
[2022-02-14] MEDS: QUEtiapine FUMARATE 25 MG TABLET PO SCH ×3 (09:24→16:33)
[2022-02-14] MEDS: OMEPRAZOLE 20 MG CAPSULE PO SCH (09:25)
[2022-02-14] MEDS: NICOTINE 21 MG/24 HOUR PATCH TD SCH (09:25)
[2022-02-14] MEDS ORDERED: DENTURE ADHESIVE 68 GM CREAM DT PRN (13:30)
[2022-02-14 16:29] VITALS: BP 101/66
[2022-02-14 20:19] VITALS: BP_SYST 105; BP_SYST 109; BP_DIAS 69
[2022-02-14] MEDS: MELATONIN 5 MG TABLET PO SCH (20:23)
[2022-02-14] MEDS: QUEtiapine FUMARATE 200 MG TABLET PO SCH (20:23)
[2022-02-14] MEDS: PRAZOSIN HCL 2 MG CAPSULE PO SCH (20:24)
[2022-02-15] MEDS: GABAPENTIN 300 MG CAPSULE PO SCH ×4 (08:44→20:28)
[2022-02-15] MEDS: OMEPRAZOLE 20 MG CAPSULE PO SCH (08:44)
[2022-02-15] MEDS: QUEtiapine FUMARATE 25 MG TABLET PO SCH ×3 (08:44→16:15)
[2022-02-15] MEDS: DIVALPROEX SODIUM 500 MG ER TABLET PO SCH ×2 (08:44→16:15)
[2022-02-15] MEDS: NALTREXONE HCL 50 MG TABLET PO SCH (08:45)
[2022-02-15] MEDS: OMEGA-3/DHA/EPA/FISH OIL 1,000 MG CAPSULE PO SCH (08:45)
[2022-02-15] MEDS: NICOTINE 21 MG/24 HOUR PATCH TD SCH (08:45)
[2022-02-15] MEDS: MULTIVITAMINS WITH MINERALS, THERAPEUTIC TABLET PO SCH (08:45)
[2022-02-15] MEDS: PHENYTOIN SODIUM 100 MG ER CAPSULE PO SCH ×3 (08:45→16:15)
[2022-02-15 12:32] VITALS: BP 102/67
[2022-02-15 16:37] VITALS: BP 119/73
[2022-02-15] MEDS: QUEtiapine FUMARATE 200 MG TABLET PO SCH (20:27)
[2022-02-15] MEDS: MELATONIN 5 MG TABLET PO SCH (20:28)
[2022-02-15] MEDS: PRAZOSIN HCL 2 MG CAPSULE PO SCH (20:28)
[2022-02-16 08:00] VITALS: BP 92/52
[2022-02-16] MEDS: QUEtiapine FUMARATE 25 MG TABLET PO SCH (09:24)
[2022-02-16] MEDS: MULTIVITAMINS WITH MINERALS, THERAPEUTIC TABLET PO SCH (09:24)
[2022-02-16] MEDS: OMEPRAZOLE 20 MG CAPSULE PO SCH (09:24)
[2022-02-16] MEDS: DIVALPROEX SODIUM 500 MG ER TABLET PO SCH (09:24)
[2022-02-16] MEDS: GABAPENTIN 300 MG CAPSULE PO SCH (09:24)
[2022-02-16] MEDS: PHENYTOIN SODIUM 100 MG ER CAPSULE PO SCH (09:24)
[2022-02-16] MEDS: NICOTINE 21 MG/24 HOUR PATCH TD SCH (09:26)
[2022-02-16] MEDS: NALTREXONE HCL 50 MG TABLET PO SCH (09:26)
[2022-02-16] MEDS ORDERED: QUET200T30 PO (09:27)
[2022-02-16] MEDS ORDERED: QUET25TA36 PO (09:27)
[2022-02-16] MEDS ORDERED: PHENY100 PO (09:27)
[2022-02-16] MEDS ORDERED: MELA5TAB40 PO (09:27)
[2022-02-16] MEDS ORDERED: PRAZ2 PO (09:27)
[2022-02-16] MEDS ORDERED: GABA-1181 PO (09:27)
[2022-02-16] MEDS ORDERED: NALT50TA PO (09:27)
[2022-02-16] MEDS: OMEGA-3/DHA/EPA/FISH OIL 1,000 MG CAPSULE PO SCH (09:27)
[2022-02-16] MEDS ORDERED: OMEG-135 PO (09:27)
[2022-02-16] MEDS ORDERED: DIVA-80 PO (09:27)
[2022-02-16] MEDS ORDERED: OMEP20 PO (10:04)
== END 2022-02-16 11:20 | disposition home or self-care (01) | DRG 750 ==
LOC: EMS 21:17 → 3EI 01-28 06:12
PROVIDERS: ADMIT Psychiatry & Neurology Psychiatry; ATTEND Psychiatry & Neurology Psychiatry
DX: F25.0 Schizoaffective disorder, bipolar type (principal); R45.851 Suicidal ideations; Z91.19 Patient's noncompliance with other medical treatment and regimen; F15.10 Other stimulant abuse, uncomplicated; Z20.822 Contact with and (suspected) exposure to COVID-19; F41.0 Panic disorder [episodic paroxysmal anxiety]; F43.10 Post-traumatic stress disorder, unspecified; F60.0 Paranoid personality disorder; J44.9 Chronic obstructive pulmonary disease, unspecified; F17.210 Nicotine dependence, cigarettes, uncomplicated; K59.00 Constipation, unspecified; T42.0X5A Adverse effect of hydantoin derivatives, initial encounter; Y92.89 Other specified places as the place of occurrence of the external cause; Z88.2 Allergy status to sulfonamides; Z55.9 Problems related to education and literacy, unspecified; Z59.00 Homelessness unspecified; Z63.9 Problem related to primary support group, unspecified; Z65.3 Problems related to other legal circumstances; Z79.899 Other long term (current) drug therapy; Z81.4 Family history of other substance abuse and dependence
CPT/HCPCS: 80053; 80061; 80164; 80178; 80185; 83036; 84439; 84443; 85025; 86592; 99285; G0480; J1200; J1630; J2060; Q9967

== ENCOUNTER 2022-02-18 12:56 | Inpatient (IN) | payer MEDICAID, OTHER ==
[~2022-02-18] VITALS: Ht 167.6 cm; Wt 54.4 kg
[~2022-02-18 12:56] MED LIST changes: +DIVA-80 PO; +GABA-1181 PO; -LITH300C3 PO; -MIRT-89 PO; +OMEP20 PO; +PRAZ2 PO; -QUET100T34 PO; +QUET25TA36 PO
[2022-02-18] MEDS ORDERED: LORazepam 2 MG TABLET PO PRN (17:45)
[2022-02-18 17:50] LABS: BASOPHILS % (AUTO) 0.3 % (0.0-2.0); EOSINOPHILS % (AUTO) 1.9 % (1.0-6.0); HEMATOCRIT 38.9 % (36-46); HEMOGLOBIN 13.2 g/dL (12.0-16.0); LYMPHOCYTES # (AUTO) 1.9 K/uL (1.0-4.8); LYMPHOCYTES % (AUTO) 20.2 % (22.0-44.0); MEAN CORPUSCULAR HEMOGLOBIN 30.6 pg (26.0-34.0); MEAN CORPUSCULAR VOLUME 90 fL (80-100); MONOCYTES # (AUTO) 1.1 K/uL (0.1-1.0); MONOCYTES % (AUTO) 11.7 % (2.0-9.0); NEUTROPHILS # (AUTO) 6.1 K/uL (1.8-7.7); NEUTROPHILS % (AUTO) 65.9 % (40.0-70.0); PLATELET COUNT (AUTO) 207 K/uL (150-450); RED BLOOD CELL COUNT(AUTO) 4.32 MIL/uL (4.00-5.20); RED CELL DISTRIBUTION WIDTH 15.1 % (11.5-14.5)
[2022-02-18 18:10] LABS: ALANINE AMINOTRANSFERASE 62 U/L (12-78); ALBUMIN 4.5 g/dL (3.4-5.0); ALKALINE PHOSPHATASE 99 U/L (46-116); ANION GAP 14 mmol/L (8-16); ASPARTATE AMINOTRANSFERASE 64 U/L (15-37); BILIRUBIN,TOTAL 0.5 mg/dL (0.1-1.0); CALCIUM, TOTAL 9.5 mg/dL (8.8-10.5); CARBON DIOXIDE 22 mmol/L (22-29); CHLORIDE 101 mmol/L (98-107); GLUCOSE,RANDOM 125 mg/dL (70-110); SODIUM SERUM 137 mmol/L (136-145); TOTAL PROTEIN, SERUM 8.1 g/dL (6.4-8.2); UREA NITROGEN, BLOOD 15 mg/dL (7-18)
[2022-02-18 18:20] LABS: GLOMERULAR FILTR. RATE CALC > 60 mL/min (>60); POTASSIUM 2.9 mmol/L (3.5-5.1)
[2022-02-18] MEDS ORDERED: POTASSIUM CHLORIDE 20 MEQ ER TABLET PO ONE (18:30)
[2022-02-18 20:55] LABS: AMPHET/METH SCREEN,URINE POSITIVE (NEGATIVE); BARBITURATE SCREEN, URINE NEGATIVE (NEGATIVE); BENZODIAZEPINES SCREEN,URINE NEGATIVE (NEGATIVE); CANNABINOID SCREEN,URINE NEGATIVE (NEGATIVE); COCAINE SCREEN,URINE NEGATIVE (NEGATIVE); METHADONE SCREEN, URINE NEGATIVE (NEGATIVE); OPIATE SCREEN,URINE NEGATIVE (NEGATIVE)
[2022-02-18 20:58] LABS: PHENCYCLIDINE SCREEN,URINE NEGATIVE (NEGATIVE)
[2022-02-18 21:09] LABS: APPEARANCE,URINE CLEAR (CLEAR); BILIRUBIN,URINE NEGATIVE (NEGATIVE); GLUCOSE, URINE (UA) NEGATIVE (NEGATIVE); KETONES,URINE NEGATIVE (NEGATIVE); LEUKOCYTE ESTERASE ,URINE TRACE (NEGATIVE); NITRATE,URINE NEGATIVE (NEGATIVE); OCCULT BLOOD,URINE MODERATE (NEGATIVE); PROTEIN,URINE TRACE mg/dL (NEGATIVE); SPECIFIC GRAVITIY, URINE 1.016 (1.003-1.030); UROBILINOGEN,URINE <=1.0 mg/dL (<=1.0)
[2022-02-18 21:31] LABS: RBC,URINE 0-2 /HPF (0-2)
[2022-02-18 21:32] LABS: BACTERIA,URINE Rare /HPF (None Seen)
[2022-02-18 21:42] LABS: COVID AG,FIA SOURCE NASOPHARYNGEAL
[2022-02-18] MEDS: OLANZapine 5 MG RAPDIS TABLET PO PRN (22:03)
[2022-02-18 23:18] VITALS: BP 135/71
[2022-02-18 23:20] VITALS: BP 135/71
[2022-02-19] MEDS ORDERED: MAGNESIUM HYDROXIDE SUSPENSION 30 ML UDCUP PO PRN (09:30)
[2022-02-19] MEDS ORDERED: MAG HYDROX/AL HYDROX/SIMETH ES 30 ML SUSPENSION UDCUP PO PRN (09:30)
[2022-02-19] MEDS ORDERED: HydrOXYzine PAMOATE 50 MG CAPSULE PO PRN (09:30)
[2022-02-19] MEDS ORDERED: GuaiFENesin/D-METHORPHAN [SUGAR-FREE] 200-20MG/10 ML SYRUP UDCUP PO PRN (09:30)
[2022-02-19] MEDS ORDERED: PROMETHAZINE HCL 25 MG TABLET PO PRN (09:30)
[2022-02-19] MEDS ORDERED: LOPERAMIDE HCL 2 MG CAPSULE PO PRN (09:30)
[2022-02-19 09:44] VITALS: BP 92/62
[2022-02-19] MEDS: PHENYTOIN SODIUM 100 MG ER CAPSULE PO SCH ×2 (12:36→16:46)
[2022-02-19] MEDS: GABAPENTIN 300 MG CAPSULE PO SCH ×3 (12:36→20:27)
[2022-02-19] MEDS: QUEtiapine FUMARATE 25 MG TABLET PO SCH ×2 (12:37→16:45)
[2022-02-19] MEDS: ACETAMINOPHEN 325 MG TABLET PO PRN (13:29)
[2022-02-19] MEDS: OLANZapine 5 MG RAPDIS TABLET PO PRN (13:29)
[2022-02-19 16:16] VITALS: BP 90/60
[2022-02-19] MEDS: DIVALPROEX SODIUM 500 MG ER TABLET PO SCH (16:45)
[2022-02-19] MEDS: THIAMINE 100 MG TABLET PO SCH (16:45)
[2022-02-19] MEDS: QUEtiapine FUMARATE 200 MG TABLET PO SCH (20:27)
[2022-02-19] MEDS: PRAZOSIN HCL 2 MG CAPSULE PO SCH (20:27)
[2022-02-19] MEDS: MELATONIN 5 MG TABLET PO SCH (20:27)
[2022-02-20] MEDS: OMEGA-3/DHA/EPA/FISH OIL 1,000 MG CAPSULE PO SCH (08:28)
[2022-02-20] MEDS: PHENYTOIN SODIUM 100 MG ER CAPSULE PO SCH ×3 (08:28→16:49)
[2022-02-20] MEDS: FOLIC ACID 1 MG TABLET PO SCH (08:28)
[2022-02-20] MEDS: QUEtiapine FUMARATE 25 MG TABLET PO SCH ×3 (08:28→16:49)
[2022-02-20] MEDS: NALTREXONE HCL 50 MG TABLET PO SCH (08:28)
[2022-02-20] MEDS: THIAMINE 100 MG TABLET PO SCH ×2 (08:28→16:49)
[2022-02-20] MEDS: GABAPENTIN 300 MG CAPSULE PO SCH ×4 (08:28→21:12)
[2022-02-20] MEDS: MULTIVITAMINS WITH MINERALS, THERAPEUTIC TABLET PO SCH (08:28)
[2022-02-20] MEDS: DIVALPROEX SODIUM 500 MG ER TABLET PO SCH ×2 (08:30→16:49)
[2022-02-20 08:53] VITALS: BP 141/87
[2022-02-20] MEDS ORDERED: GABAPENTIN 300 MG CAPSULE PO PRN (17:00)
[2022-02-20 17:01] VITALS: BP 120/70
[2022-02-20] MEDS: PRAZOSIN HCL 2 MG CAPSULE PO SCH (21:11)
[2022-02-20] MEDS: MELATONIN 5 MG TABLET PO SCH (21:11)
[2022-02-20] MEDS: QUEtiapine FUMARATE 200 MG TABLET PO SCH (21:12)
[2022-02-20 22:46] VITALS: BP 120/77
[2022-02-21 06:48] LABS: PHENYTOIN (DILANTIN) 4.4 mcg/mL (10.0-20.0)
[2022-02-21] MEDS: THIAMINE 100 MG TABLET PO SCH ×2 (09:18→16:40)
[2022-02-21] MEDS: OMEGA-3/DHA/EPA/FISH OIL 1,000 MG CAPSULE PO SCH (09:18)
[2022-02-21] MEDS: FOLIC ACID 1 MG TABLET PO SCH (09:18)
[2022-02-21] MEDS: GABAPENTIN 300 MG CAPSULE PO SCH ×4 (09:18→20:45)
[2022-02-21] MEDS: MULTIVITAMINS WITH MINERALS, THERAPEUTIC TABLET PO SCH (09:18)
[2022-02-21] MEDS: NALTREXONE HCL 50 MG TABLET PO SCH (09:18)
[2022-02-21] MEDS: DIVALPROEX SODIUM 500 MG ER TABLET PO SCH ×2 (09:19→16:40)
[2022-02-21] MEDS: QUEtiapine FUMARATE 25 MG TABLET PO SCH ×3 (09:19→16:41)
[2022-02-21] MEDS: PHENYTOIN SODIUM 100 MG ER CAPSULE PO SCH ×3 (09:19→16:41)
[2022-02-21] MEDS: OLANZapine 5 MG RAPDIS TABLET PO PRN ×2 (09:43→16:40)
[2022-02-21 10:09] VITALS: BP 83/56
[2022-02-21] MEDS: NICOTINE 21 MG/24 HOUR PATCH TD SCH (11:55)
[2022-02-21 17:14] VITALS: BP 123/68
[2022-02-21] MEDS: ACETAMINOPHEN 325 MG TABLET PO PRN (17:14)
[2022-02-21] MEDS: PRAZOSIN HCL 2 MG CAPSULE PO SCH (20:45)
[2022-02-21] MEDS: MELATONIN 5 MG TABLET PO SCH (20:45)
[2022-02-21] MEDS: QUEtiapine FUMARATE 200 MG TABLET PO SCH (20:45)
[2022-02-22 08:00] VITALS: BP 112/67
[2022-02-22] MEDS: NALTREXONE HCL 50 MG TABLET PO SCH (09:08)
[2022-02-22] MEDS: NICOTINE 21 MG/24 HOUR PATCH TD SCH (09:08)
[2022-02-22] MEDS: THIAMINE 100 MG TABLET PO SCH ×2 (09:08→17:09)
[2022-02-22] MEDS: DIVALPROEX SODIUM 500 MG ER TABLET PO SCH ×2 (09:08→17:09)
[2022-02-22] MEDS: GABAPENTIN 300 MG CAPSULE PO SCH ×2 (09:09→12:39)
[2022-02-22] MEDS: QUEtiapine FUMARATE 25 MG TABLET PO SCH ×3 (09:09→17:10)
[2022-02-22] MEDS: PHENYTOIN SODIUM 100 MG ER CAPSULE PO SCH ×3 (09:09→17:09)
[2022-02-22] MEDS: MULTIVITAMINS WITH MINERALS, THERAPEUTIC TABLET PO SCH (09:09)
[2022-02-22] MEDS: FOLIC ACID 1 MG TABLET PO SCH (09:09)
[2022-02-22] MEDS: OMEGA-3/DHA/EPA/FISH OIL 1,000 MG CAPSULE PO SCH (09:09)
[2022-02-22] MEDS: QUEtiapine FUMARATE 100 MG TABLET PO PRN (14:03)
[2022-02-22 16:55] VITALS: BP 92/61
[2022-02-22] MEDS: GABAPENTIN 400 MG CAPSULE PO SCH ×2 (17:10→21:00)
[2022-02-22] MEDS: MELATONIN 5 MG TABLET PO SCH (21:00)
[2022-02-22] MEDS: PRAZOSIN HCL 2 MG CAPSULE PO SCH (21:00)
[2022-02-22] MEDS: QUEtiapine FUMARATE 200 MG TABLET PO SCH (21:01)
[2022-02-23] MEDS: MULTIVITAMINS WITH MINERALS, THERAPEUTIC TABLET PO SCH (10:44)
[2022-02-23] MEDS: NALTREXONE HCL 50 MG TABLET PO SCH (10:44)
[2022-02-23] MEDS: PHENYTOIN SODIUM 100 MG ER CAPSULE PO SCH ×3 (10:44→16:49)
[2022-02-23] MEDS: NICOTINE 21 MG/24 HOUR PATCH TD SCH (10:44)
[2022-02-23] MEDS: OMEGA-3/DHA/EPA/FISH OIL 1,000 MG CAPSULE PO SCH (10:44)
[2022-02-23] MEDS: GABAPENTIN 400 MG CAPSULE PO SCH ×4 (10:44→21:00)
[2022-02-23] MEDS: QUEtiapine FUMARATE 25 MG TABLET PO SCH ×3 (10:44→16:49)
[2022-02-23] MEDS: FOLIC ACID 1 MG TABLET PO SCH (10:44)
[2022-02-23] MEDS: DIVALPROEX SODIUM 500 MG ER TABLET PO SCH ×2 (10:45→16:49)
[2022-02-23] MEDS: THIAMINE 100 MG TABLET PO SCH ×2 (10:45→16:49)
[2022-02-23 16:00] VITALS: BP 102/58
[2022-02-23] MEDS: QUEtiapine FUMARATE 200 MG TABLET PO SCH (21:33)
[2022-02-23] MEDS: PRAZOSIN HCL 2 MG CAPSULE PO SCH (21:33)
[2022-02-23] MEDS: MELATONIN 5 MG TABLET PO SCH (21:33)
[2022-02-24 07:59] LABS: COVID AG,FIA SOURCE NASAL SWAB
[2022-02-24 08:00] VITALS: BP 99/68
[2022-02-24] MEDS: GABAPENTIN 400 MG CAPSULE PO SCH ×5 (09:00→21:21)
[2022-02-24] MEDS: NALTREXONE HCL 50 MG TABLET PO SCH (09:05)
[2022-02-24] MEDS: FOLIC ACID 1 MG TABLET PO SCH (09:05)
[2022-02-24] MEDS: PHENYTOIN SODIUM 100 MG ER CAPSULE PO SCH ×3 (09:05→16:26)
[2022-02-24] MEDS: DIVALPROEX SODIUM 500 MG ER TABLET PO SCH ×2 (09:05→16:26)
[2022-02-24] MEDS: OMEGA-3/DHA/EPA/FISH OIL 1,000 MG CAPSULE PO SCH (09:05)
[2022-02-24] MEDS: NICOTINE 21 MG/24 HOUR PATCH TD SCH (09:05)
[2022-02-24] MEDS: THIAMINE 100 MG TABLET PO SCH ×2 (09:05→16:26)
[2022-02-24] MEDS: MULTIVITAMINS WITH MINERALS, THERAPEUTIC TABLET PO SCH (09:05)
[2022-02-24] MEDS: QUEtiapine FUMARATE 25 MG TABLET PO SCH ×3 (09:05→16:26)
[2022-02-24 16:16] VITALS: BP 99/70
[2022-02-24] MEDS: PRAZOSIN HCL 2 MG CAPSULE PO SCH (21:21)
[2022-02-24] MEDS: QUEtiapine FUMARATE 200 MG TABLET PO SCH (21:21)
[2022-02-24] MEDS: MELATONIN 5 MG TABLET PO SCH (21:21)
[2022-02-25 08:00] VITALS: BP 91/53
[2022-02-25 10:25] VITALS: BP 97/70
[2022-02-25] MEDS: NALTREXONE HCL 50 MG TABLET PO SCH (10:25)
[2022-02-25] MEDS: PHENYTOIN SODIUM 100 MG ER CAPSULE PO SCH ×3 (10:26→16:54)
[2022-02-25] MEDS: QUEtiapine FUMARATE 25 MG TABLET PO SCH ×3 (10:26→16:55)
[2022-02-25] MEDS: FOLIC ACID 1 MG TABLET PO SCH (10:26)
[2022-02-25] MEDS: DIVALPROEX SODIUM 500 MG ER TABLET PO SCH ×2 (10:26→16:54)
[2022-02-25] MEDS: MULTIVITAMINS WITH MINERALS, THERAPEUTIC TABLET PO SCH (10:26)
[2022-02-25] MEDS: GABAPENTIN 400 MG CAPSULE PO SCH ×4 (10:26→20:03)
[2022-02-25] MEDS: THIAMINE 100 MG TABLET PO SCH ×2 (10:26→16:55)
[2022-02-25] MEDS: OMEGA-3/DHA/EPA/FISH OIL 1,000 MG CAPSULE PO SCH (10:26)
[2022-02-25] MEDS: NICOTINE 21 MG/24 HOUR PATCH TD SCH (10:29)
[2022-02-25 16:03] VITALS: BP 103/77
[2022-02-25] MEDS: MELATONIN 5 MG TABLET PO SCH (20:03)
[2022-02-25] MEDS: QUEtiapine FUMARATE 200 MG TABLET PO SCH (20:03)
[2022-02-25] MEDS: PRAZOSIN HCL 2 MG CAPSULE PO SCH (20:04)
[2022-02-26] MEDS: MULTIVITAMINS WITH MINERALS, THERAPEUTIC TABLET PO SCH (09:44)
[2022-02-26] MEDS: OMEGA-3/DHA/EPA/FISH OIL 1,000 MG CAPSULE PO SCH (09:45)
[2022-02-26] MEDS: THIAMINE 100 MG TABLET PO SCH ×2 (09:45→17:07)
[2022-02-26] MEDS: QUEtiapine FUMARATE 25 MG TABLET PO SCH ×3 (09:45→16:54)
[2022-02-26] MEDS: NALTREXONE HCL 50 MG TABLET PO SCH (09:45)
[2022-02-26] MEDS: PHENYTOIN SODIUM 100 MG ER CAPSULE PO SCH ×3 (09:45→16:54)
[2022-02-26] MEDS: DIVALPROEX SODIUM 500 MG ER TABLET PO SCH ×2 (09:45→16:54)
[2022-02-26] MEDS: FOLIC ACID 1 MG TABLET PO SCH (09:45)
[2022-02-26] MEDS: GABAPENTIN 400 MG CAPSULE PO SCH ×4 (09:45→20:14)
[2022-02-26] MEDS: NICOTINE 21 MG/24 HOUR PATCH TD SCH (10:05)
[2022-02-26 16:10] VITALS: BP 95/64
[2022-02-26] MEDS: MELATONIN 5 MG TABLET PO SCH (20:13)
[2022-02-26] MEDS: QUEtiapine FUMARATE 200 MG TABLET PO SCH (20:13)
[2022-02-26] MEDS: PRAZOSIN HCL 2 MG CAPSULE PO SCH (20:13)
[2022-02-27] MEDS: QUEtiapine FUMARATE 100 MG TABLET PO PRN (00:40)
[2022-02-27] MEDS: OMEGA-3/DHA/EPA/FISH OIL 1,000 MG CAPSULE PO SCH (08:17)
[2022-02-27] MEDS: NALTREXONE HCL 50 MG TABLET PO SCH (08:17)
[2022-02-27] MEDS: GABAPENTIN 400 MG CAPSULE PO SCH ×4 (08:17→20:49)
[2022-02-27] MEDS: MULTIVITAMINS WITH MINERALS, THERAPEUTIC TABLET PO SCH (08:17)
[2022-02-27] MEDS: FOLIC ACID 1 MG TABLET PO SCH (08:17)
[2022-02-27] MEDS: PHENYTOIN SODIUM 100 MG ER CAPSULE PO SCH ×3 (08:17→17:17)
[2022-02-27] MEDS: QUEtiapine FUMARATE 25 MG TABLET PO SCH ×3 (08:17→17:17)
[2022-02-27] MEDS: THIAMINE 100 MG TABLET PO SCH ×2 (08:17→17:16)
[2022-02-27] MEDS: DIVALPROEX SODIUM 500 MG ER TABLET PO SCH ×2 (08:17→17:16)
[2022-02-27] MEDS: NICOTINE 21 MG/24 HOUR PATCH TD SCH (10:08)
[2022-02-27] MEDS: PRAZOSIN HCL 2 MG CAPSULE PO SCH (20:48)
[2022-02-27] MEDS: MELATONIN 5 MG TABLET PO SCH (20:48)
[2022-02-27] MEDS: QUEtiapine FUMARATE 200 MG TABLET PO SCH (20:49)
[2022-02-28] MEDS: THIAMINE 100 MG TABLET PO SCH ×2 (09:08→16:36)
[2022-02-28] MEDS: FOLIC ACID 1 MG TABLET PO SCH (09:08)
[2022-02-28] MEDS: MULTIVITAMINS WITH MINERALS, THERAPEUTIC TABLET PO SCH (09:08)
[2022-02-28] MEDS: NALTREXONE HCL 50 MG TABLET PO SCH (09:08)
[2022-02-28] MEDS: PHENYTOIN SODIUM 100 MG ER CAPSULE PO SCH ×3 (09:08→16:36)
[2022-02-28] MEDS: GABAPENTIN 400 MG CAPSULE PO SCH ×4 (09:08→20:16)
[2022-02-28] MEDS: DIVALPROEX SODIUM 500 MG ER TABLET PO SCH ×2 (09:08→16:36)
[2022-02-28] MEDS: OMEGA-3/DHA/EPA/FISH OIL 1,000 MG CAPSULE PO SCH (09:08)
[2022-02-28] MEDS: NICOTINE 21 MG/24 HOUR PATCH TD SCH (09:09)
[2022-02-28] MEDS: QUEtiapine FUMARATE 25 MG TABLET PO SCH ×3 (09:09→16:36)
[2022-02-28 09:42] VITALS: BP 90/58
[2022-02-28 16:00] VITALS: BP 99/65
[2022-02-28 16:17] VITALS: BP 99/65
[2022-02-28 20:10] VITALS: BP 102/71
[2022-02-28] MEDS: QUEtiapine FUMARATE 200 MG TABLET PO SCH (20:16)
[2022-02-28] MEDS: PRAZOSIN HCL 2 MG CAPSULE PO SCH (20:16)
[2022-02-28] MEDS: MELATONIN 5 MG TABLET PO SCH (20:16)
[2022-03-01] MEDS: QUEtiapine FUMARATE 100 MG TABLET PO PRN (02:59)
[2022-03-01 09:05] VITALS: BP 96/66
[2022-03-01] MEDS: PHENYTOIN SODIUM 100 MG ER CAPSULE PO SCH ×3 (09:32→17:04)
[2022-03-01] MEDS: OMEGA-3/DHA/EPA/FISH OIL 1,000 MG CAPSULE PO SCH (09:33)
[2022-03-01] MEDS: GABAPENTIN 400 MG CAPSULE PO SCH ×4 (09:33→20:21)
[2022-03-01] MEDS: FOLIC ACID 1 MG TABLET PO SCH (09:33)
[2022-03-01] MEDS: DIVALPROEX SODIUM 500 MG ER TABLET PO SCH ×2 (09:33→17:04)
[2022-03-01] MEDS: THIAMINE 100 MG TABLET PO SCH (09:33)
[2022-03-01] MEDS: NALTREXONE HCL 50 MG TABLET PO SCH (09:33)
[2022-03-01] MEDS: MULTIVITAMINS WITH MINERALS, THERAPEUTIC TABLET PO SCH (09:33)
[2022-03-01] MEDS: NICOTINE 21 MG/24 HOUR PATCH TD SCH (09:34)
[2022-03-01] MEDS: QUEtiapine FUMARATE 25 MG TABLET PO SCH ×3 (09:34→17:04)
[2022-03-01 20:00] VITALS: BP 99/68
[2022-03-01] MEDS: PRAZOSIN HCL 2 MG CAPSULE PO SCH (20:19)
[2022-03-01] MEDS: MELATONIN 5 MG TABLET PO SCH (20:19)
[2022-03-01] MEDS: QUEtiapine FUMARATE 200 MG TABLET PO SCH (20:19)
[2022-03-02] MEDS: QUEtiapine FUMARATE 100 MG TABLET PO PRN (03:57)
[2022-03-02 10:03] VITALS: BP 92/60
[2022-03-02] MEDS: OMEGA-3/DHA/EPA/FISH OIL 1,000 MG CAPSULE PO SCH (10:12)
[2022-03-02] MEDS: DIVALPROEX SODIUM 500 MG ER TABLET PO SCH ×2 (10:12→17:32)
[2022-03-02] MEDS: QUEtiapine FUMARATE 25 MG TABLET PO SCH ×3 (10:12→17:35)
[2022-03-02] MEDS: MULTIVITAMINS WITH MINERALS, THERAPEUTIC TABLET PO SCH (10:13)
[2022-03-02] MEDS: PHENYTOIN SODIUM 100 MG ER CAPSULE PO SCH ×3 (10:13→17:32)
[2022-03-02] MEDS: GABAPENTIN 400 MG CAPSULE PO SCH ×4 (10:14→20:31)
[2022-03-02] MEDS: NALTREXONE HCL 50 MG TABLET PO SCH (10:14)
[2022-03-02] MEDS: NICOTINE 21 MG/24 HOUR PATCH TD SCH (10:17)
[2022-03-02 10:18] VITALS: BP 101/62
[2022-03-02 16:44] VITALS: BP 92/60
[2022-03-02 16:58] VITALS: BP 98/67
[2022-03-02] MEDS: QUEtiapine FUMARATE 200 MG TABLET PO SCH (20:31)
[2022-03-02] MEDS: MELATONIN 5 MG TABLET PO SCH (20:31)
[2022-03-02] MEDS: PRAZOSIN HCL 2 MG CAPSULE PO SCH (20:31)
[2022-03-02] MEDS ORDERED: QUEtiapine FUMARATE 200 MG TABLET PO SCH (21:00)
[2022-03-02 23:44] VITALS: BP 96/62
[2022-03-02] MEDS: ACETAMINOPHEN 325 MG TABLET PO PRN (23:44)
[2022-03-02] MEDS: ZOLPIDEM TARTRATE 10 MG TABLET PO PRN (23:44)
[2022-03-03 07:11] LABS: COVID AG,FIA SOURCE NASAL SWAB
[2022-03-03] MEDS: NICOTINE 21 MG/24 HOUR PATCH TD SCH (10:15)
[2022-03-03] MEDS: OMEGA-3/DHA/EPA/FISH OIL 1,000 MG CAPSULE PO SCH (10:20)
[2022-03-03] MEDS: DIVALPROEX SODIUM 500 MG ER TABLET PO SCH ×2 (10:20→17:00)
[2022-03-03] MEDS: PHENYTOIN SODIUM 100 MG ER CAPSULE PO SCH ×3 (10:20→17:01)
[2022-03-03] MEDS: QUEtiapine FUMARATE 25 MG TABLET PO SCH ×3 (10:20→17:00)
[2022-03-03] MEDS: MULTIVITAMINS WITH MINERALS, THERAPEUTIC TABLET PO SCH (10:20)
[2022-03-03] MEDS: GABAPENTIN 400 MG CAPSULE PO SCH ×4 (10:20→21:12)
[2022-03-03] MEDS: NALTREXONE HCL 50 MG TABLET PO SCH (10:21)
[2022-03-03 10:59] VITALS: BP 97/57
[2022-03-03 17:51] VITALS: BP 99/67
[2022-03-03] MEDS: QUEtiapine FUMARATE 300 MG TABLET PO SCH (21:12)
[2022-03-03] MEDS: PRAZOSIN HCL 2 MG CAPSULE PO SCH (21:12)
[2022-03-03] MEDS: MELATONIN 5 MG TABLET PO SCH (21:12)
[2022-03-04] MEDS: NALTREXONE HCL 50 MG TABLET PO SCH (09:23)
[2022-03-04] MEDS: BuPROPion HCL XL 150 MG ER TABLET PO SCH (09:23)
[2022-03-04] MEDS: GABAPENTIN 400 MG CAPSULE PO SCH ×4 (09:23→20:47)
[2022-03-04] MEDS: PHENYTOIN SODIUM 100 MG ER CAPSULE PO SCH ×3 (09:23→17:17)
[2022-03-04] MEDS: MULTIVITAMINS WITH MINERALS, THERAPEUTIC TABLET PO SCH (09:23)
[2022-03-04] MEDS: DIVALPROEX SODIUM 500 MG ER TABLET PO SCH ×2 (09:23→17:17)
[2022-03-04] MEDS: OMEGA-3/DHA/EPA/FISH OIL 1,000 MG CAPSULE PO SCH (09:23)
[2022-03-04] MEDS: NICOTINE 21 MG/24 HOUR PATCH TD SCH (09:24)
[2022-03-04] MEDS: QUEtiapine FUMARATE 100 MG TABLET PO PRN ×2 (10:53→23:37)
[2022-03-04 16:31] VITALS: BP 93/60
[2022-03-04 20:47] VITALS: BP 105/66
[2022-03-04] MEDS: MELATONIN 5 MG TABLET PO SCH (20:47)
[2022-03-04] MEDS: QUEtiapine FUMARATE 300 MG TABLET PO SCH (20:47)
[2022-03-04] MEDS: ZOLPIDEM TARTRATE 10 MG TABLET PO PRN (20:47)
[2022-03-04] MEDS: PRAZOSIN HCL 2 MG CAPSULE PO SCH (21:00)
[2022-03-04 23:36] VITALS: BP 106/67
[2022-03-05 08:00] VITALS: BP 110/65
[2022-03-05] MEDS: GABAPENTIN 400 MG CAPSULE PO SCH ×4 (09:34→20:41)
[2022-03-05] MEDS: BuPROPion HCL XL 150 MG ER TABLET PO SCH (09:34)
[2022-03-05] MEDS: PHENYTOIN SODIUM 100 MG ER CAPSULE PO SCH ×4 (09:34→20:40)
[2022-03-05] MEDS: NALTREXONE HCL 50 MG TABLET PO SCH (09:34)
[2022-03-05] MEDS: OMEGA-3/DHA/EPA/FISH OIL 1,000 MG CAPSULE PO SCH (09:35)
[2022-03-05] MEDS: MULTIVITAMINS WITH MINERALS, THERAPEUTIC TABLET PO SCH (09:35)
[2022-03-05] MEDS: DIVALPROEX SODIUM 500 MG ER TABLET PO SCH ×2 (09:35→16:54)
[2022-03-05] MEDS: NICOTINE 21 MG/24 HOUR PATCH TD SCH (10:22)
[2022-03-05] MEDS: QUEtiapine FUMARATE 100 MG TABLET PO PRN ×2 (12:41→16:54)
[2022-03-05 16:36] VITALS: BP 104/72
[2022-03-05] MEDS: MELATONIN 5 MG TABLET PO SCH (20:40)
[2022-03-05] MEDS: QUEtiapine FUMARATE 300 MG TABLET PO SCH (20:40)
[2022-03-05] MEDS: PRAZOSIN HCL 2 MG CAPSULE PO SCH (20:41)
[2022-03-06 08:00] VITALS: BP 95/56
[2022-03-06] MEDS: NALTREXONE HCL 50 MG TABLET PO SCH (09:19)
[2022-03-06] MEDS: OMEGA-3/DHA/EPA/FISH OIL 1,000 MG CAPSULE PO SCH (09:19)
[2022-03-06] MEDS: DIVALPROEX SODIUM 500 MG ER TABLET PO SCH ×2 (09:20→17:18)
[2022-03-06] MEDS: PHENYTOIN SODIUM 100 MG ER CAPSULE PO SCH ×3 (09:20→21:14)
[2022-03-06] MEDS: GABAPENTIN 400 MG CAPSULE PO SCH ×4 (09:20→21:15)
[2022-03-06] MEDS: BuPROPion HCL XL 150 MG ER TABLET PO SCH (09:20)
[2022-03-06] MEDS: MULTIVITAMINS WITH MINERALS, THERAPEUTIC TABLET PO SCH (09:20)
[2022-03-06] MEDS: QUEtiapine FUMARATE 100 MG TABLET PO PRN ×2 (09:20→13:30)
[2022-03-06] MEDS: NICOTINE 21 MG/24 HOUR PATCH TD SCH (09:23)
[2022-03-06 16:36] VITALS: BP 114/68
[2022-03-06] MEDS ORDERED: OLANZapine 5 MG RAPDIS TABLET PO PRN (17:00)
[2022-03-06] MEDS ORDERED: OLANZapine 10 MG RAPDIS TABLET PO SCH (21:00)
[2022-03-06] MEDS: MELATONIN 5 MG TABLET PO SCH (21:14)
[2022-03-06] MEDS: PRAZOSIN HCL 2 MG CAPSULE PO SCH (21:14)
[2022-03-06] MEDS: ZOLPIDEM TARTRATE 10 MG TABLET PO PRN (21:45)
[2022-03-07 08:30] VITALS: BP 91/60
[2022-03-07] MEDS: NICOTINE 21 MG/24 HOUR PATCH TD SCH (08:43)
[2022-03-07] MEDS: BuPROPion HCL XL 150 MG ER TABLET PO SCH (08:43)
[2022-03-07] MEDS: DIVALPROEX SODIUM 500 MG ER TABLET PO SCH ×2 (08:43→16:13)
[2022-03-07] MEDS: PHENYTOIN SODIUM 100 MG ER CAPSULE PO SCH ×3 (08:43→21:00)
[2022-03-07] MEDS: OMEGA-3/DHA/EPA/FISH OIL 1,000 MG CAPSULE PO SCH (08:43)
[2022-03-07] MEDS: NALTREXONE HCL 50 MG TABLET PO SCH (08:43)
[2022-03-07] MEDS: GABAPENTIN 400 MG CAPSULE PO SCH ×4 (08:43→20:59)
[2022-03-07] MEDS: MULTIVITAMINS WITH MINERALS, THERAPEUTIC TABLET PO SCH (08:43)
[2022-03-07 16:04] VITALS: BP 112/71
[2022-03-07] MEDS ORDERED: PRAZ2 PO (17:24)
[2022-03-07] MEDS ORDERED: DIVA-80 PO (17:24)
[2022-03-07] MEDS ORDERED: OMEG-135 PO (17:24)
[2022-03-07] MEDS ORDERED: BUPR-49 PO (17:24)
[2022-03-07] MEDS ORDERED: PHENY100 PO ×2 (17:24)
[2022-03-07] MEDS ORDERED: GABA-1201 PO (17:24)
[2022-03-07] MEDS ORDERED: MELA5TAB40 PO (17:24)
[2022-03-07] MEDS ORDERED: OLAN10TA26 PO (17:24)
[2022-03-07] MEDS ORDERED: NALT50TA PO (17:24)
[2022-03-07] MEDS: PRAZOSIN HCL 2 MG CAPSULE PO SCH (20:59)
[2022-03-07] MEDS: MELATONIN 5 MG TABLET PO SCH (20:59)
[2022-03-07] MEDS ORDERED: OLANZapine 5 MG RAPDIS TABLET PO SCH (21:00)
[2022-03-07] MEDS: ZOLPIDEM TARTRATE 10 MG TABLET PO PRN (21:12)
[2022-03-08 08:06] VITALS: BP 92/60
[2022-03-08] MEDS: BuPROPion HCL XL 150 MG ER TABLET PO SCH (09:21)
[2022-03-08] MEDS: NALTREXONE HCL 50 MG TABLET PO SCH (09:21)
[2022-03-08] MEDS: DIVALPROEX SODIUM 500 MG ER TABLET PO SCH ×2 (09:21→16:29)
[2022-03-08] MEDS: GABAPENTIN 400 MG CAPSULE PO SCH ×3 (09:21→16:29)
[2022-03-08] MEDS: OMEGA-3/DHA/EPA/FISH OIL 1,000 MG CAPSULE PO SCH (09:21)
[2022-03-08] MEDS: PHENYTOIN SODIUM 100 MG ER CAPSULE PO SCH ×3 (09:21→20:51)
[2022-03-08] MEDS: MULTIVITAMINS WITH MINERALS, THERAPEUTIC TABLET PO SCH (09:21)
[2022-03-08] MEDS: NICOTINE 21 MG/24 HOUR PATCH TD SCH (09:22)
[2022-03-08 16:02] VITALS: BP 108/67
[2022-03-08] MEDS: PRAZOSIN HCL 2 MG CAPSULE PO SCH (20:51)
[2022-03-08] MEDS: MELATONIN 5 MG TABLET PO SCH (20:51)
[2022-03-08] MEDS ORDERED: GABAPENTIN 400 MG CAPSULE PO SCH (21:00)
[2022-03-08] MEDS ORDERED: OLANZapine 10 MG RAPDIS TABLET PO SCH (21:00)
[2022-03-09] MEDS: MULTIVITAMINS WITH MINERALS, THERAPEUTIC TABLET PO SCH (09:00)
[2022-03-09] MEDS: NALTREXONE HCL 50 MG TABLET PO SCH (09:00)
[2022-03-09] MEDS: GABAPENTIN 400 MG CAPSULE PO SCH (09:00)
[2022-03-09] MEDS: PHENYTOIN SODIUM 100 MG ER CAPSULE PO SCH (09:00)
[2022-03-09] MEDS: DIVALPROEX SODIUM 500 MG ER TABLET PO SCH (09:01)
[2022-03-09] MEDS: BuPROPion HCL XL 150 MG ER TABLET PO SCH (09:01)
[2022-03-09] MEDS: NICOTINE 21 MG/24 HOUR PATCH TD SCH (09:08)
[2022-03-09] MEDS: OMEGA-3/DHA/EPA/FISH OIL 1,000 MG CAPSULE PO SCH (09:10)
== END 2022-03-09 10:14 | disposition home or self-care (01) | DRG 750 ==
LOC: EMS 12:57 → 3EI 19:18
PROVIDERS: ADMIT Psychiatry & Neurology Psychiatry; ATTEND Psychiatry & Neurology Psychiatry
DX: F25.9 Schizoaffective disorder, unspecified (principal); R45.851 Suicidal ideations; G40.409 Other generalized epilepsy and epileptic syndromes, not intractable, without status epilepticus; F15.10 Other stimulant abuse, uncomplicated; F17.200 Nicotine dependence, unspecified, uncomplicated; Z20.822 Contact with and (suspected) exposure to COVID-19; F41.0 Panic disorder [episodic paroxysmal anxiety]; F43.10 Post-traumatic stress disorder, unspecified; F60.0 Paranoid personality disorder; J44.9 Chronic obstructive pulmonary disease, unspecified; Z55.9 Problems related to education and literacy, unspecified; Z59.9 Problem related to housing and economic circumstances, unspecified; Z63.9 Problem related to primary support group, unspecified; Z65.3 Problems related to other legal circumstances; Z79.899 Other long term (current) drug therapy; Z91.19 Patient's noncompliance with other medical treatment and regimen; Z88.2 Allergy status to sulfonamides
CPT/HCPCS: 80053; 80164; 80185; 81001; 84132; 85025; 87081; 99285; G0480; Q9967

== ENCOUNTER 2022-09-21 06:48 | Emergency (ER) | payer MEDICAID, OTHER ==
[~2022-09-21] VITALS: Ht 165.1 cm; Wt 59.1 kg
[~2022-09-21 06:48] MED LIST changes: +BUPR-49 PO; -DIVA-80 PO; +DIVA500T53 PO; -GABA-1181 PO; +GABA-1201 PO; +OLAN10TA26 PO; +PHEN100C10 PO; -PHENY100 PO; -QUET200T30 PO; -QUET25TA36 PO
[2022-09-21 08:12] LABS: BASOPHILS % (AUTO) 0.4 % (0.0-2.0); EOSINOPHILS % (AUTO) 0.8 % (1.0-6.0); HEMATOCRIT 38.4 % (36-46); LYMPHOCYTES # (AUTO) 1.1 K/uL (1.0-4.8); LYMPHOCYTES % (AUTO) 20.6 % (22.0-44.0); MEAN CORPUSCULAR HEMOGLOBIN 28.6 pg (26.0-34.0); MEAN CORPUSCULAR HGB CONC 33.9 G/dL (31.0-37.0); MEAN CORPUSCULAR VOLUME 84 fL (80-100); MONOCYTES # (AUTO) 0.3 K/uL (0.1-1.0); MONOCYTES % (AUTO) 4.6 % (2.0-9.0); NEUTROPHILS % (AUTO) 73.6 % (40.0-70.0); PLATELET COUNT (AUTO) 141 K/uL (150-450); RED BLOOD CELL COUNT(AUTO) 4.55 MIL/uL (4.00-5.20); RED CELL DISTRIBUTION WIDTH 16.9 % (11.5-14.5)
[2022-09-21 08:26] LABS: ALANINE AMINOTRANSFERASE 31 U/L (12-78); ALBUMIN 4.1 g/dL (3.4-5.0); ALKALINE PHOSPHATASE 109 U/L (46-116); ANION GAP 10 mmol/L (8-16); ASPARTATE AMINOTRANSFERASE 45 U/L (15-37); CARBON DIOXIDE 26 mmol/L (22-29); CHLORIDE 104 mmol/L (98-107); CREATININE 0.78 mg/dL (0.60-1.30); GLOMERULAR FILTR. RATE CALC > 60 mL/min (>60); GLUCOSE,RANDOM 108 mg/dL (70-110); SODIUM SERUM 140 mmol/L (136-145); TOTAL PROTEIN, SERUM 7.3 g/dL (6.4-8.2); UREA NITROGEN, BLOOD 4 mg/dL (7-18)
[2022-09-21 08:30] LABS: POTASSIUM 2.9 mmol/L (3.5-5.1)
[2022-09-21] MEDS ORDERED: POTASSIUM CHLORIDE 20 MEQ ER TABLET PO ONE (09:00)
[2022-09-21] MEDS ORDERED: ChlordiazePOXIDE HCL 25 MG CAPSULE PO ONE (10:45)
[2022-09-21] MEDS ORDERED: MAGNESIUM SULFATE 2 GM, MVI, ADULT NO.1 WITH VIT K 10 ML, THIAMINE 100 MG, FOLIC ACID 1... IV ONE ×5 (10:45)
[2022-09-21 11:42] LABS: AMPHET/METH SCREEN,URINE NEGATIVE (NEGATIVE); BARBITURATE SCREEN, URINE NEGATIVE (NEGATIVE); BENZODIAZEPINES SCREEN,URINE NEGATIVE (NEGATIVE); CANNABINOID SCREEN,URINE NEGATIVE (NEGATIVE); COCAINE SCREEN,URINE NEGATIVE (NEGATIVE); METHADONE SCREEN, URINE NEGATIVE (NEGATIVE); OPIATE SCREEN,URINE NEGATIVE (NEGATIVE); PHENCYCLIDINE SCREEN,URINE NEGATIVE (NEGATIVE)
[2022-09-21 12:57] LABS: ANION GAP 12 mmol/L (8-16); CALCIUM, TOTAL 8.8 mg/dL (8.8-10.5); CARBON DIOXIDE 24 mmol/L (22-29); CHLORIDE 107 mmol/L (98-107); CREATININE 0.66 mg/dL (0.60-1.30); GLOMERULAR FILTR. RATE CALC > 60 mL/min (>60); GLUCOSE,RANDOM 101 mg/dL (70-110); POTASSIUM 3.8 mmol/L (3.5-5.1); SODIUM SERUM 143 mmol/L (136-145); UREA NITROGEN, BLOOD 3 mg/dL (7-18)
[2022-09-21 14:00] VITALS: BP 135/87
[2022-09-21] MEDS ORDERED: PRAZ1 PO (17:41)
[2022-09-21] MEDS ORDERED: QUET25TA36 PO (17:41)
[2022-09-21] MEDS ORDERED: ARIP400S IM (17:41)
[2022-09-21] MEDS ORDERED: ZALE10CA26 PO (17:41)
[2022-09-21] MEDS ORDERED: CHOL200074 PO (17:41)
[2022-09-21] MEDS ORDERED: OLAN1TAB5 PO (17:41)
[2022-09-21] MEDS ORDERED: VALB60CA PO (17:41)
[2022-09-21] MEDS ORDERED: DOCU-350 PO (17:41)
== END 2022-09-21 15:34 | disposition home or self-care (01) ==
LOC: EMS 06:49
DX: E87.6 Hypokalemia (principal); R45.851 Suicidal ideations; F10.239 Alcohol dependence with withdrawal, unspecified; F41.9 Anxiety disorder, unspecified; F31.9 Bipolar disorder, unspecified; F20.9 Schizophrenia, unspecified; F17.210 Nicotine dependence, cigarettes, uncomplicated; F19.90 Other psychoactive substance use, unspecified, uncomplicated; Z88.1 Allergy status to other antibiotic agents; Y90.0 Blood alcohol level of less than 20 mg/100 ml
CPT/HCPCS: 99285; 96365; 96366; 80053; 85025; 36415; 80307; G0480; J3490 ×2; J3411; J3475; J7030; 80048

== ENCOUNTER 2024-04-13 21:40 | Inpatient (IN) | payer MEDICAID ==
[~2024-04-13] VITALS: Ht 165.1 cm; Wt 45.4 kg
[~2024-04-13 21:40] MED LIST changes: +ARIP400S IM; +CHOL200074 PO; +DIVA-153 PO; -DIVA500T53 PO; +DOCU-412 PO; -NALT50TA PO; +NALT50TA6 PO; -OLAN10TA26 PO; +OLAN1TAB5 PO; +PRAZ1 PO; -PRAZ2 PO; +QUET25TA36 PO; +VALB60CA PO; +ZALE10CA26 PO
[2024-04-14 20:09] VITALS: BP 109/68; PULSE 72; RESP 17; TEMP 98; O2SAT 97
[2024-04-14] MEDS ORDERED: LOPERAMIDE HCL 2 MG CAPSULE PO PRN (20:45)
[2024-04-14] MEDS ORDERED: ALBUTEROL SULFATE HFA 90 MCG/PUFF 8 GM INHALER IH PRN (20:45)
[2024-04-14] MEDS ORDERED: GuaiFENesin/D-METHORPHAN [SUGAR-FREE] 200-20MG/10 ML SYRUP UDCUP PO PRN (20:45)
[2024-04-14] MEDS ORDERED: CloNIDine HCL 0.1 MG TABLET PO PRN (20:45)
[2024-04-14] MEDS ORDERED: ONDANSETRON 4 MG TABLET PO PRN (20:45)
[2024-04-14] MEDS ORDERED: ACETAMINOPHEN 325 MG TABLET PO PRN (20:45)
[2024-04-14] MEDS ORDERED: MAG HYDROX/ALUMINUM HYD/SIMETH ES 30 ML SUSPENSION UDCUP PO PRN (20:45)
[2024-04-14] MEDS ORDERED: MAGNESIUM HYDROXIDE SUSPENSION 30 ML UDCUP PO PRN (20:45)
[2024-04-14] MEDS ORDERED: PETROLATUM,WHITE 28 GM JELLY TP PRN (20:45)
[2024-04-14] MEDS ORDERED: IBUPROFEN 400 MG TABLET PO PRN (20:45)
[2024-04-14] MEDS ORDERED: DOCUSATE SODIUM 100 MG CAPSULE PO PRN (20:45)
[2024-04-14] MEDS: PNEUMOCOCCAL VACCINE POLYVALENT 0.5 ML SYRINGE [PPSV23] IM. ONE (21:36)
[2024-04-14] MEDS: NICOTINE 14 MG/24 HOUR PATCH TD PRN (22:40)
[2024-04-15] MEDS ORDERED: ALBUTEROL SULFATE HFA 90 MCG/PUFF 8 GM INHALER IH PRN (08:00)
[2024-04-15 09:11] VITALS: BP 114/71; PULSE 91; RESP 16; TEMP 96.2; O2SAT 96
[2024-04-15] MEDS: DIVALPROEX SODIUM 500 MG DR TABLET PO SCH (16:05)
[2024-04-15] MEDS: GABAPENTIN 400 MG CAPSULE PO SCH (16:05)
[2024-04-15] MEDS: LORazepam 1 MG TABLET PO PRN (18:48)
[2024-04-15 20:02] VITALS: BP 99/71; PULSE 107; RESP 17; TEMP 97.5
[2024-04-15] MEDS: OLANZapine 7.5 MG TABLET PO SCH (20:13)
[2024-04-15] MEDS: PRAZOSIN HCL 1 MG CAPSULE PO SCH (20:13)
[2024-04-16 08:07] VITALS: BP 119/68; PULSE 68; RESP 16; TEMP 97.9; O2SAT 96
[2024-04-16] MEDS: BuPROPion HCL XL 150 MG ER TABLET PO SCH (09:00)
[2024-04-16] MEDS: NALTREXONE HCL 50 MG TABLET PO SCH (09:00)
[2024-04-16] MEDS: QUEtiapine FUMARATE 25 MG TABLET PO SCH (14:32)
[2024-04-16 22:44] VITALS: BP 95/65; PULSE 91; RESP 16; TEMP 97.4; O2SAT 97
[2024-04-17 08:11] LABS: BASOPHILS % (AUTO) 0.8 % (0.0-2.0); EOSINOPHILS % (AUTO) 5.3 % (1.0-6.0); HEMATOCRIT 40.5 % (36-46); HEMOGLOBIN 13.5 g/dL (12.0-16.0); LYMPHOCYTES # (AUTO) 1.8 K/uL (1.0-4.8); LYMPHOCYTES % (AUTO) 37.3 % (22.0-44.0); MEAN CORPUSCULAR HEMOGLOBIN 30.8 pg (26.0-34.0); MEAN CORPUSCULAR HGB CONC 33.3 G/dL (31.0-37.0); MEAN CORPUSCULAR VOLUME 92 fL (80-100); MONOCYTES # (AUTO) 0.4 K/uL (0.1-1.0); MONOCYTES % (AUTO) 9.1 % (2.0-9.0); NEUTROPHILS # (AUTO) 2.2 K/uL (1.8-7.7); NEUTROPHILS % (AUTO) 47.5 % (40.0-70.0); PLATELET COUNT (AUTO) 179 K/uL (150-450); RED BLOOD CELL COUNT(AUTO) 4.39 MIL/uL (4.00-5.20); RED CELL DISTRIBUTION WIDTH 13.8 % (11.5-14.5); WHITE BLOOD COUNT (AUTO) 4.7 K/uL (4.5-11.0)
[2024-04-17 08:25] VITALS: BP 100/60; PULSE 94; RESP 16; TEMP 97; O2SAT 95
[2024-04-18 01:19] VITALS: RESP 18
[2024-04-18 08:11] VITALS: RESP 16
[2024-04-18 20:36] VITALS: BP 105/73; PULSE 108; RESP 16; TEMP 98.1
[2024-04-19 08:13] VITALS: RESP 16
[2024-04-19 20:58] VITALS: BP 102/75; PULSE 115; RESP 17; TEMP 97.2
[2024-04-20 08:36] VITALS: RESP 16
[2024-04-20] MEDS ORDERED: DIVA-112 PO (09:01)
[2024-04-20] MEDS ORDERED: OLAN15TA2 PO (09:03)
== END 2024-04-20 11:24 | disposition home or self-care (01) | DRG 750 ==
LOC: B3A 04-14 16:14
PROVIDERS: ADMIT Psychiatry & Neurology Child & Adolescent Psychiatry; ATTEND Psychiatry & Neurology Child & Adolescent Psychiatry
PROC: GZHZZZZ Group Psychotherapy (ICD-10-PCS; principal; 2024-04-15)
PROC: GZ58ZZZ Individual Psychotherapy, Cognitive-Behavioral (ICD-10-PCS; 2024-04-15)
PROC: GZ56ZZZ Individual Psychotherapy, Supportive (ICD-10-PCS; 2024-04-15)
DX: F20.0 Paranoid schizophrenia (principal); E44.0 Moderate protein-calorie malnutrition; E78.5 Hyperlipidemia, unspecified; G40.909 Epilepsy, unspecified, not intractable, without status epilepticus; I10 Essential (primary) hypertension; J44.9 Chronic obstructive pulmonary disease, unspecified; Z88.2 Allergy status to sulfonamides; Z68.1 Body mass index [BMI] 19.9 or less, adult
CPT/HCPCS: 85025